=== PATIENT | female | born 1985 | race Caucasian/White ===

== ENCOUNTER → 2021-10-27 | Outpatient (CLI) | payer SELFPAY ==
--- NOTE | 2021-10-27 13:46 | US_ITS ---
STUDY: ULTRASOUND OF THE FEMALE PELVIS - COMPLETE REASON FOR EXAM: Female, 36 years old. irregular menses LMP: 10/05/2021. TECHNIQUE: Transabdominal and transvaginal scan. TECHNICAL QUALITY: Adequate. COMPARISON: None. FINDINGS: UTERUS: 9.5 cm length. Probable arcuate configuration. ENDOMETRIUM: Not thickened. 0.6 cm. OVARIES: Right ovary: 4.2 x 2.9 x 2.6 cm. Multiple follicles, largest is 1.6 x 1.6 x 1 cm appears septated. Vascular flow demonstrated. No findings to suggest ovarian torsion. Left ovary: 4.3 x 2.9 x 2.2 cm. Multiple follicles, largest 1.7 x 2 x 1 cm, likely septated. Vascular flow demonstrated. No findings to suggest ovarian torsion. FREE FLUID: None. BLADDER: Moderately distended. Bladder volume 320 mL. There is a 1.4 x 1 x 1.3 cm cystic structure at the base of the bladder on the left probable ureterocele related to the left ureter. 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 A few septated ovarian follicles. Incidental cystic structure in the bladder probably ureterocele on the left. Electronically Signed: Camryn Castro MD at 5:07 EDT ,
--- NOTE | 2021-10-27 13:46 | US_ITS ---
STUDY: ULTRASOUND OF THE FEMALE PELVIS - COMPLETE REASON FOR EXAM: Female, 36 years old. irregular menses LMP: 10/05/2021. TECHNIQUE: Transabdominal and transvaginal scan. TECHNICAL QUALITY: Adequate. COMPARISON: None. FINDINGS: UTERUS: 9.5 cm length. Probable arcuate configuration. ENDOMETRIUM: Not thickened. 0.6 cm. OVARIES: Right ovary: 4.2 x 2.9 x 2.6 cm. Multiple follicles, largest is 1.6 x 1.6 x 1 cm appears septated. Vascular flow demonstrated. No findings to suggest ovarian torsion. Left ovary: 4.3 x 2.9 x 2.2 cm. Multiple follicles, largest 1.7 x 2 x 1 cm, likely septated. Vascular flow demonstrated. No findings to suggest ovarian torsion. FREE FLUID: None. BLADDER: Moderately distended. Bladder volume 320 mL. There is a 1.4 x 1 x 1.3 cm cystic structure at the base of the bladder on the left probable ureterocele related to the left ureter. 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 A few septated ovarian follicles. Incidental cystic structure in the bladder probably ureterocele on the left. Electronically Signed: Camryn Castro MD at 5:07 EDT ,
== END | disposition home or self-care (01) ==
PROVIDERS: Referring Provider Obstetrics & Gynecology; Visit Provider Obstetrics & Gynecology
DX: N92.6 Irregular menstruation, unspecified (principal)
CPT/HCPCS: 76830; 76856

== ENCOUNTER → 2021-11-19 | Outpatient (CLI) | payer SELFPAY ==
--- NOTE | 2021-11-19 17:42 | CT_ITS ---
STUDY: CT ABDOMEN AND PELVIS WITH AND WITHOUT CONTRAST REASON FOR EXAM: Female, 36 years old. ABNORMAL FINDINGS ON IMAGING RADIATION DOSAGE (If Supplied By Facility): CTDIvol = ( 9.00 ) mGy, DLP = ( 878.89 ) mGycm TECHNIQUE: Transaxial images were obtained from the dome of the diaphragm to the symphysis pubis without oral contrast. ML ISOVUE 300 was administered. Sagittal and coronal images were reconstructed. Individualized dose optimization techniques were used for this CT. COMPARISON: None. FINDINGS: 2 mm calcified granuloma in the posterior medial segment of the right lower The visualized portions of the heart are within normal limits. Normal liver. Normal gallbladder and extrahepatic biliary system. There is a benign calcified granuloma of the spleen. Normal pancreas. Normal bilateral adrenal glands. Normal right kidney. Normal left kidney. Normal visualized stomach. Normal small intestine. Normal colon. The appendix is visualized and appears normal. Normal abdominal aorta. Normal inferior vena cava. Normal retroperitoneum. Normal urinary bladder. There is a 1.3 cm x 2.4 cm cyst in the left ovary. Normal abdominal wall. Normal osseous structures. CT/CT Abd/Pelvis W/WO Contrast IMPRESSION: Small left ovarian cyst. Electronically Signed: Aleks Garcia MD at 8:35 EDT ,
== END | disposition home or self-care (01) ==
PROVIDERS: Visit Provider Urology
DX: R93.49 Abnormal radiologic findings on diagnostic imaging of other urinary organs (principal)
CPT/HCPCS: 74178; Q9967

== ENCOUNTER → 2021-11-25 | Outpatient (CLI) | payer SELFPAY ==
[2021-11-25 13:29] LABS: Estradiol 46.7 pg/mL; Thyroid Stim Hormone (TSH) 3.74 uIU/mL (0.358-3.74)
[2021-11-28 13:14] LABS: Testosterone Free 1.2 pg/mL (0.0-4.2)
== END | disposition home or self-care (01) ==
PROVIDERS: Referring Provider Obstetrics & Gynecology; Visit Provider Obstetrics & Gynecology
DX: Z13.29 Encounter for screening for other suspected endocrine disorder (principal); N97.0 Female infertility associated with anovulation
CPT/HCPCS: 36415; 82670; 83001; 84402; 84443

== ENCOUNTER → 2022-09-14 | Outpatient (CLI) | payer SELFPAY ==
[2022-09-14 12:50] LABS: Absolute Lymphocyte Count 1.76 X10^3/uL (0.83-4.51); Absolute Neutrophil Count 6.9 X10^3/uL (2.0-7.7); Basophil# 0.02 X10^3/uL; Basophil% 0.2 % (0-1); Eosinophil# 0.05 X10^3/uL; Eosinophils% 0.5 % (0-5); Hematocrit 41.3 % (37-47); Hemoglobin 13.7 g/dL (12.0-15.0); Lymphocyte # 1.76 X10^3/ul (0.83-4.51); Lymphocyte % 18.7 % (19-41); Mean Corp Hgb Conc 33.2 g/dL (32-36); Mean Corpuscular Hgb 29.5 pg (27.0-32.0); Mean Corpuscular Volume 88.8 fL (81-99); Mean Platelet Vol. 10.9 fl (6.2-12.0); Monocyte# 0.62 X10^3/uL; Monocyte% 6.6 % (0-10); NRBC Flagged by Analyzer 0 % (0-5); Neutrophil % 73.6 % (47-70); Platelet Count 284 K/mm3 (150-450); RBC Distribution Width CV 13.6 % (11.6-14.6); RBC Distribution Width SD 44.2 fl (35.1-43.9); Red Blood Count 4.65 M/mm3 (4.2-5.4); White Blood Count 9.4 K/mm3 (4.4-11.0)
[2022-09-14 13:42] LABS: hCG Titer Quant., Serum 15195 mIU/mL (1-3)
[2022-09-14 13:47] LABS: HIV - WCH Non-Reactive (Nonreactive); Hepatitis B Surface Antigen Non-Reactive (Nonreactive); Hepatitis C Antibody Non-Reactive (Nonreactive); Rubella IgG Reactive (Nonreactive); Syphilis Antibodies Non-reactive
[2022-09-17 00:07] LABS: Chlamydia By Nucleic Acid AMP Negative (Negative)
[2022-09-17 08:28] LABS: Gonococcus By Nucleic Acid AMP Negative (Negative)
== END | disposition home or self-care (01) ==
PROVIDERS: Referring Provider Advanced Practice Midwife; Visit Provider Advanced Practice Midwife
DX: O09.90 Supervision of high risk pregnancy, unspecified, unspecified trimester (principal)
CPT/HCPCS: 36415; 84702; 85025; 86703; 86762; 86780; 86803; 86850; 86900; 86901; 87086; 87340; 87491; 87591

== ENCOUNTER → 2022-09-16 | Outpatient (CLI) | payer SELFPAY ==
[2022-09-16 12:34] LABS: hCG Titer Quant., Serum 21592 mIU/mL (1-3)
== END | disposition home or self-care (01) ==
PROVIDERS: Visit Provider Advanced Practice Midwife
DX: O26.859 Spotting complicating pregnancy, unspecified trimester (principal)
CPT/HCPCS: 36415; 84702

== ENCOUNTER → 2022-09-27 | Outpatient (CLI) | payer SELFPAY | END | disposition home or self-care (01) | LOC: LABSPEC 12:00 | PROVIDERS: Referring Provider Obstetrics & Gynecology; Visit Provider Obstetrics & Gynecology | DX: O26.899 Other specified pregnancy related conditions, unspecified trimester (principal); R10.2 Pelvic and perineal pain; Z3A.00 Weeks of gestation of pregnancy not specified | CPT/HCPCS: 87086; 87088 ==

== ENCOUNTER → 2022-12-22 | Outpatient (CLI) | payer SELFPAY ==
--- NOTE | 2022-12-22 12:25 | US_ITS ---
STUDY: SECOND AND THIRD TRIMESTER OBSTETRICAL ULTRASOUND REASON FOR EXAM: Female, 37 years old anatomy LMP: August 06, 2022. TECHNIQUE: Transabdominal and Transvaginal TECHNICAL QUALITY: Adequate. PRIOR ULTRASOUND: None. FINDINGS: There is a single intrauterine fetus. The fetus is in a breech presentation. There is demonstrated cardiac activity with a heart rate of 144 bpm. There is a normal amniotic fluid volume. The largest amniotic fluid pocket measures 2.8 cm x 3.2 cm. The amniotic fluid index (CHRISTI) is within normal limits . The placenta is posterior in location and is not low lying. There are Grade 0 placental changes. The cervix measures 4.5 in length. The bilateral adnexal regions are normal. BIOMETRY: BPD: 4.58 cm: 19 weeks, 6 days HC: 17.64 cm: 20 weeks, 1 days AC: 14.9 cm: 20 weeks, 1 days FL: 3.12 cm: 19 weeks, 5 days CI: 74% FL/BPD: 68% FL/HC: FL/AC: 21% HC/AC: 1.18 age by current US: 20 weeks, 0 days. POLY by current US: May 11, 2023. Estimated weight: 323 grams, +/- 48 grams, 58 %. Age by LMP: 19 weeks, 5 days. POLY by LMP: May 13, 2023. ANATOMY: Gender: Male Cranium: Normal lateral ventricles. Normal choroid plexus. Normal cerebellum. Normal cisterna magna. Normal face, nose and lips. Chest: Normal 4-chamber heart. Abdomen/Pelvis: Normal diaphragm. Normal stomach. Normal abdominal wall. Normal cord insertion. Normal 3 vessel cord. Normal kidneys. Normal bladder. Spine: Normal cervical spine. Normal thoracic spine. Normal lumbar spine. Normal sacrum. Extremities: Normal bilateral upper extremities. Normal bilateral lower extremities. IMPRESSION: Single live intrauterine gestation with a mean gestational age of 20 weeks. Electronically Signed: Aleks Garcia MD at 15:01 EDT , STUDY: FIRST TRIMESTER OBSTETRICAL ULTRASOUND REASON FOR EXAM: Female, 37 years old . Cervical length. LMP: August 06, 2022. TECHNIQUE: Transvaginal TECHNICAL QUALITY: Adequate. PRIOR ULTRASOUND: None. FINDINGS: Cervical length measures 4.5 cm. US/OB Anatomy Scan IMPRESSION: Cervical length measures 4.5 cm. Electronically Signed: Aleks Garcia MD at 15:02 EDT ,
== END | disposition home or self-care (01) ==
LOC: OPUS 12:24
PROVIDERS: Referring Provider Obstetrics & Gynecology; Visit Provider Obstetrics & Gynecology
DX: O09.90 Supervision of high risk pregnancy, unspecified, unspecified trimester (principal); Z3A.00 Weeks of gestation of pregnancy not specified
CPT/HCPCS: 76805; 76817

== ENCOUNTER → 2023-02-10 | Outpatient (CLI) | payer SELFPAY ==
[2023-02-10 12:31] LABS: Absolute Neutrophil Count 6.5 X10^3/uL (2.0-7.7); Basophil# 0.02 X10^3/uL; Basophil% 0.2 % (0-1); Eosinophil# 0.06 X10^3/uL; Eosinophils% 0.7 % (0-5); Hematocrit 35.8 % (37-47); Hemoglobin 11.6 g/dL (12.0-15.0); Lymphocyte % 17.9 % (19-41); Mean Corp Hgb Conc 32.4 g/dL (32-36); Mean Corpuscular Hgb 30.3 pg (27.0-32.0); Mean Corpuscular Volume 93.5 fL (81-99); Mean Platelet Vol. 10.6 fl (6.2-12.0); Monocyte# 0.67 X10^3/uL; Monocyte% 7.5 % (0-10); NRBC Flagged by Analyzer 0 % (0-5); Neutrophil # 6.53 X10^3/uL (2.7-7.7); Neutrophil % 73.1 % (47-70); Platelet Count 266 K/mm3 (150-450); RBC Distribution Width CV 14.3 % (11.6-14.6); Red Blood Count 3.83 M/mm3 (4.2-5.4); White Blood Count 8.9 K/mm3 (4.4-11.0)
[2023-02-10 12:58] LABS: Glucose Challenge Gest 1H 50g 103 mg/dL (70-140)
[2023-02-10 13:24] LABS: HIV - WCH Non-Reactive (Nonreactive); Syphilis Antibodies Non-reactive
== END | disposition home or self-care (01) ==
LOC: LAB 10:54
PROVIDERS: Referring Provider Obstetrics & Gynecology; Visit Provider Obstetrics & Gynecology
DX: O09.90 Supervision of high risk pregnancy, unspecified, unspecified trimester (principal); Z13.1 Encounter for screening for diabetes mellitus; Z3A.00 Weeks of gestation of pregnancy not specified
CPT/HCPCS: 82950; 85025; 86703; 86780

== ENCOUNTER → 2023-03-30 | Outpatient (CLI) | payer SELFPAY ==
--- NOTE | 2023-03-30 10:49 | US_ITS ---
STUDY: SECOND AND THIRD TRIMESTER OBSTETRICAL ULTRASOUND - LIMITED REASON FOR EXAM: Female, 37 years old advanced maternal age LMP: 08/06/2022. PRIOR ULTRASOUND: 12/22/2022. TECHNIQUE: Transabdominal TECHNICAL QUALITY: Adequate. FINDINGS: There is a single intrauterine fetus. The fetus is in a cephalic presentation. There is demonstrated cardiac activity with a heart rate of 148 bpm. There is a normal amniotic fluid volume. The largest amniotic fluid pocket measures 13.7 cm. The amniotic fluid index (CHRISTI) is 5.6 cm. The placenta is posterior and left lateral without evidence of placenta previa. There are Grade 1 placental changes. The cervix measures 4 cm in length. BIOMETRY: BPD: 8.6 cm: 34 weeks, 4 days HC: 30.2 cm: 33 weeks, 4 days AC: 29.1 cm: 33 weeks, 1 days FL: 6.4 cm: 33 weeks, 0 days age by prior US: 20 weeks, 0 days. POLY by prior US: 05/11/2023. age by current US: 33 weeks, 2 days. POLY by current US: 05/16/2023. Estimated weight: 2187 grams, +/- 328 grams, 34 percentile. Gender: anatomy is not entirely excluded on this examination. Questionable nuchal cord. Umbilical cord is seen near the neck however, complete wrap could not be definitely identified. US/OB Limited With Biometrics IMPRESSION: Single live intrauterine fetus in cephalic presentation with an estimated gestational age of 33 weeks and 2 days as described above. Electronically Signed: Juan Burton MD at 14:13 EDT ,
== END | disposition home or self-care (01) ==
LOC: US 10:48
PROVIDERS: Referring Provider Obstetrics & Gynecology; Visit Provider Obstetrics & Gynecology
DX: O34.219 Maternal care for unspecified type scar from previous cesarean delivery (principal); O09.529 Supervision of elderly multigravida, unspecified trimester; Z3A.00 Weeks of gestation of pregnancy not specified
CPT/HCPCS: 76816

== ENCOUNTER → 2023-04-20 | Outpatient (CLI) | payer SELFPAY | END | disposition home or self-care (01) | PROVIDERS: Visit Provider Obstetrics & Gynecology | DX: O09.90 Supervision of high risk pregnancy, unspecified, unspecified trimester (principal); Z3A.00 Weeks of gestation of pregnancy not specified | CPT/HCPCS: 87077; 87081; 87186 ==

== ENCOUNTER 2023-05-11 07:08 | Inpatient (IN) | payer SELFPAY ==
[2023-05-11] VITALS (49 sets, daily range): BP systolic 96–120; BP diastolic 50–80; PULSE 68–99; RESP 11–20; TEMP 36.1–37.1; O2SAT 90–100; BMI 25.3
[2023-05-11] MEDS: Lactated Ringers 1,000 ML 50 ML IV (07:45)
[2023-05-11 07:57] LABS: Absolute Neutrophil Count 6.7 X10^3/uL (2.0-7.7); Basophil# 0.02 X10^3/uL; Basophil% 0.2 % (0-1); Eosinophil# 0.05 X10^3/uL; Eosinophils% 0.5 % (0-5); Hematocrit 36.7 % (37-47); Hemoglobin 12.4 g/dL (12.0-15.0); Lymphocyte % 19.4 % (19-41); Mean Corp Hgb Conc 33.8 g/dL (32-36); Mean Corpuscular Hgb 30.3 pg (27.0-32.0); Mean Corpuscular Volume 89.7 fL (81-99); Mean Platelet Vol. 10.4 fl (6.2-12.0); Monocyte# 0.62 X10^3/uL; Monocyte% 6.7 % (0-10); NRBC Flagged by Analyzer 0 % (0-5); Neutrophil % 72.3 % (47-70); Platelet Count 210 K/mm3 (150-450); RBC Distribution Width SD 45.3 fl (35.1-43.9); Red Blood Count 4.09 M/mm3 (4.2-5.4); White Blood Count 9.3 K/mm3 (4.4-11.0)
[2023-05-11] MEDS: Penicillin G Pot 5,000,000 UNITS in 0.9% Normal Saline (100mL MB+) 100 ML 150 UNITS IV (08:00)
[2023-05-11] MEDS: Oxytocin 15 Units/NS 250ml 15 UNITS/250 ML IV.SOLN 2 UNITS IV (08:33)
--- NOTE | 2023-05-11 08:47 | HP.PCM.OB_ITS ---
HPI - General General Date of Admission: 05/11/23 HPI Narrative FROYLAN CARLOS, is a 37 y/o @ 39 weeks 5 days who presents to L&D for IOL. She has a history of prior section for breech presentation. Her current cotto score is a 10. She was 3/80/-1 in office yesterday and membranes were stripped. 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 Judy Hennessy DO) delivery delivered Social History adopted: No household members: spouse and children housing: house number of children: 1 current occupational status: unemployed current occupation: [employer] pets and animals: No history of recent travel: No sexually active: Yes Smoking Status: Former smoker Electronic Cigarette Use: not used second hand exposure: No alcohol intake: never substance use type: does not use well-balanced diet: about half the time caffeine: Yes Type: coffee Number of servings: 2 eating out: 1-3 times/week seatbelt use: always do you feel safe at home: Yes additional social history: 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 Date Name GA/Weeks Outcome Route Bth Weight Gen Labor Lgth Anesthesia Del Locatn Provider FOB 09/21/18 James 40 live - full term 5lbs Male Abimael Delivery Date: 09/21/18 Last Updated by: Keara Salmon MD breech Visit Details Expected Delivery Route/Plan Labor Preferences- CB/BF classes: discussed labor support person: Sher labor intervention preferences: [] pain management options preferred: [] cut cord/dad catch: [] : Yes PP control planned: [] discussed possible routes of delivery and associated risks: [] special requests: [] Plans Covid status: [] Flu vaccine: [] Tdap vaccine: declines Rhogam:NA LARC form signed: [] Problem list reviewed and updated with the most current plan of care details and appropriate orders placed. Relevant counseling for the gestational age provided. Continue routine care and follow up unless otherwise noted in visit notes/problem list details OB Flowsheet Initial Weight: Not Recorded Date -?-?-?-?-?-?-?-?-?-?-?-?- EGA Weight BP Urine Prot -?-?-?-?-?-?-?-?-?-?-?-?- Glucose FHR FuHt Pres Dilation -?-?-?-?-?-?-?-?-?-?-?-?- Effaced St Visit Note 09/14/22 -?-?-?-?-?-?-?-?-?-?-?-?- 5w 4d 117 lb 8 oz 128/78 -?-?-?-?-?-?-?-?--?-?-?-?- -?-?-?-?-?-?-?-?-?-?-?-?- KW-CRL equal to dates. Desires for . NIPT box given. KW-CRL not equal to dates. m easuring ~4 weeks. Quants ordered for today and in 48 hours KW-CRL not equal to dates. m easuring ~4 weeks. Quants ordered for today and in 48 hours per JV 09/27/22 -?-?-?-?-?-?-?-?-?-?-?-?- 7w 3d 120 lb 2 oz 138/81 Nega tive -?-?-?-?-?-?-?-?-?-?-?-?- Negative 170 -?-?-?-?-?-?-?-?-?-?-?-?- SM- had some llq pain bedside ultrasound today show 1.2cm CRL 10/19/22 -?-?-?-?-?-?-?-?-?-?-?-?- 10w 4d 117 lb 8 oz 117/79 Nega tive -?-?-?-?-?-?-?-?-?-?-?-?- Negative 175 -?-?-?-?-?-?-?-?-?-?-?-?- JV- bedside hand held ultrasound performed today. pt has no complaints of cramping or bleeding. will sign hippa release form for prior section and to have NIPT drawn with labs. 11/18/22 -?-?-?-?-?-?-?-?-?-?-?-?- 14w 6d 119 lb 2 oz 120/77 Nega tive -?-?-?-?-?-?-?-?-?-?-?-?- Negative 145 -?-?-?-?-?-?-?-?-?-?-?-?- JV- no lof, vagi nal bleeding, or cramping. on Tuesday she had some brown discharge that has stopped. bedside scan does not show any signs of NICOLASA or fluid in the cervix. anatomy scan ordered. 12/13/22 -?-?-?-?-?-?-?-?-?-?-?-?- 18w 3d 121 lb 4 oz 112/82 Nega tive -?-?-?-?-?-?-?-?-?-?-?-?- Negative 145 19 -?-?-?-?-?-?-?-?-?-?-?-?- SM- no vb lof go od fm no regular ctx 01/13/23 -?-?-?-?-?-?-?-?-?-?-?-?- 22w 6d 124 lb 126/76 Negative -?-?-?-?-?-?-?-?-?-?-?-?- Negative 140 -?-?-?-?-?-?-?-?-?-?-?-?- JV- + move ment now, no cramping or bleeding 02/10/23 -?-?-?-?-?-?-?-?-?-?-?-?- 26w 6d 126 lb 116/72 -?--?-?-?-?-?-?-?-?-?-?-?- 140 27 -?-?-?-?-?-?-?-?-?-?-?-?- JV- no complaint s today. doing gct later today. (lives in [place]) will discuss tdap next visit. 02/25/23 -?-?-?-?-?-?-?-?-?-?-?-?- 29w 0d 127 lb 8 oz 106/71 -?-?-?-?-?-?-?-?-?-?-?-?- 140 28 -?-?-?-?-?-?-?-?-?-?-?-?- SM- no vb lof go od fm no regular ctx larc signed 03/09/23 -?-?-?-?-?-?-?-?-?-?-?-?- 30w 5d 129 lb 4 oz 117/77 Nega tive -?-?-?-?-?-?-?-?-?-?-?-?- Negative 145 30 -?-?-?-?-?-?-?-?-?-?-?-?- LC- no vb/ctx/lo f. good fm. declines tdap. 03/23/23 -?-?-?-?-?-?-?-?-?-?-?-?- 32w 5d 130 lb 6 oz 118/79 Nega tive -?-?-?-?-?-?-?-?-?-?-?-?- Negative 152 32 -?-?-?-?-?-?-?-?-?-?-?-?- JV- no lof, vagi nal bleeding, or dec fm. will try pepcid for nausea in the evening. if no improvement will try adding reglan. 04/07/23 -?-?-?-?-?-?-?-?-?-?-?-?- 34w 6d 131 lb 6 oz 110/74 Nega tive -?-?-?-?-?-?-?-?-?-?-?-?- Negative 130 36 -?-?-?-?-?-?-?-?-?-?-?-?- KW-no lof/vb/ctx . good fm. Pepcid is somewhat working for her, if it worsens again would like Reglan. 04/13/23 -?-?-?-?-?-?-?-?-?-?-?-?- 35w 5d 131 lb 114/72 Negative -?-?-?-?-?-?-?-?-?-?-?-?- Negative 130 35 -?-?-?-?-?-?-?-?-?-?-?-?- LC- no lof/vb/ct x. good fm. gbs next week. 04/20/23 -?-?-?-?-?-?-?-?-?-?-?-?- 36w 5d 133 lb 2 oz 120/82 Nega tive -?-?-?-?-?-?-?-?-?-?-?-?- Negative 146 36 Cephalic 1 -?-?-?-?-?-?-?-?-?-?-?-?- 60 -2 JV- gbs co llected. pt has decided that she wants to have a rpt section by 40 weeks if no delivery spontaneously by then. appears OP today based on scaphoid shape of abdomen today. This is what her prior section was for (stuck OP and decels) 04/27/23 -?-?-?-?-?-?-?-?-?-?-?-?- 37w 5d 134 lb 2 oz 115/77 Nega tive -?-?-?-?-?-?-?-?-?-?-?-?- Negative 140 37 Cephalic 3 -?-?-?-?-?-?-?-?-?-?-?-?- 80 -2 JV- no lof , vaginal bleeding, or dec fm. planning . unless does not go into labor by 40 weeks. 05/04/23 -?-?-?-?-?-?-?-?-?-?-?-?- 38w 5d 132 lb 6 oz 118/79 Nega tive -?-?-?-?-?-?-?-?-?-?-?-?- Negative 134 38 Cephalic 3 -?-?-?-?-?-?-?-?-?-?-?--?- 80 -2 JV- attemp tricia to strip membranes but baby's hand was in the way. will reassess next tuesday. pt may be a candidate for IOL if does not want . 05/10/23 -?-?-?-?-?-?-?-?-?-?-?-?- 39w 4d 133 lb 6 oz 112/78 Nega tive -?-?-?-?-?-?-?-?-?-?-?-?- Negative 144 38 Cephalic 3 -?-?-?-?-?-?-?-?-?-?-?-?- 80 -1 JV- planni ng for IOL tomorrow. No lof, vaginal bleeding, or dec fm. not feeling contractions. cotto score now 10 ROS Constitutional Constitutional: Denies change in weight, fatigue, fever(s), headache(s), poor appetite or weakness Eyes Eyes: Denies blurry vision, change in vision, seeing flashes or spots in vision ENT HEENT: Denies dizziness, headache(s), loss taste/smell or sore throat Cardiovascular Cardiovascular: Denies chest pain, dizziness, dyspnea, irregular heart rhythm, leg edema, palpitations, rapid heart rate or vomiting Respiratory/Chest Respiratory/Chest: Denies chest tightness, cough, dyspnea or breast pain Gastrointestinal Gastrointestinal: Denies abdominal pain, anorexia, constipation, cramping, diarrhea, hemorrhoids, vomiting or weight changes Genitourinary Genitourinary: Denies dysuria, flank pain, genital lesions, genital pain, urinary frequency or urinary urgency Musculoskeletal Musculoskeletal: Denies back pain, difficulty walking, joint pain, limited range of motion, muscle cramps or numbness Integumentary Integumentary: Denies lesions or unusual bruising Neurologic Neurologic: Denies abnormal movements, abnormal speech, dizziness, numbness, seizure-like activity or syncope Psychiatric Psychiatric: Denies anxiety, behavioral changes, change in appetite, change in libido, cognitive impairment, confusion, depression, difficulty concentrating, hallucinations or suicidal thoughts Endocrine Endocrinology: Denies excessive sweating, polydipsia or polyuria Hematologic/Lymphatic Hematologic/Lymphatic: Denies easy bleeding, easy bruising or lymphadenopathy Allergic/Immunologic Allergic/Immunologic: Denies itchy eyes, lip swelling, seasonal rhinorrhea, rhinitis, throat swelling, tongue swelling, eczemia, wheezing or asthma Vital Signs Vital Signs Vital Signs: 05/11/23 07:52 05/11/23 07:52 05/11/23 07:53 Temperature Temperature Source Pulse Rate 90 84 Blood Pressure 116/67 BP Systolic 116 BP Diastolic 67 Pulse Ox 05/11/23 07:53 05/11/23 07:51 05/11/23 07:51 Temperature 97.0 F L Temperature Source Temporal Pulse Rate Blood Pressure BP Systolic BP Diastolic Pulse Ox 99 Weight Weight: 134 lb Body Mass Index (BMI) 25.3 Physical Exam Const alert, oriented x3, no apparent distress and healthy appearing General Appearance: cooperative; Negative for anxious HEENT normocephalic Face and Sinus: normal facial exam Eyes EOMs intact bilaterally and no scleral icterus General Eye: normal appearance of both eyes Neck full ROM and supple Lymph Lymphatic: no lymphadenopathy noted Chest Chest: abnormal inspection of the chest Resp normal respiratory effort Effort and Inspection: able to speak in complete sentences Cardio regular rate GI soft to palpation and non-tender Inspection: gravid Palpation: soft; Negative for tender Back/Spine no CVA tenderness Extremity normal to inspection, full ROM and no clubbing, cyanosis or edema General Extremity: Negative for calf tenderness or edema Skin Lesions: no lesions Rashes: no rashes Psych mental status grossly normal Labs Labs Labs: Blood Type O POSITIVE Antibody Screen NEGATIVE Hct 36.7 % (37-47) L Hgb 12.4 g/dL (12.0-15.0) Pap Smear Negative Obstetrics Ultrasound Syphilis Total Ab Non-reactive Rubella IgG Antibody Reactive (Nonreactive) Hep Bs Antigen Non-Reactive (Nonreactive) Hepatitis C Antibody Non-Reactive (Nonreactive) Chlamydia DNA (RENZO) Negative (Negative) N.gonorrhoeae DNA (RENZO) Negative (Negative) HIV 1&2 Antibody Non-Reactive (Nonreactive) Glucose 1 Hr 50 gm 103 mg/dL (70-140) Assessment & Plan (1) Positive GBS test: COMMENT: treat in labor (2) Desires (vaginal after ) trial: COMMENT: 70.1% per calculator . prior section was for breech 03/30 35% growth (3) AMA (advanced maternal age) multigravida 35+: COMMENT: declines genetic screening. plan 36 week growth US (4) Supervision of high risk , antepartum: COMMENT: PRR POLY: 05/13/23, kevin Ramirez, Spouse-Sher, Repeat C/S scheduled 05/16/23 Noon. (5) : QUALIFIERS: Weeks of gestation: 39 weeks Qualified Code(s): Z3A.3 9 - 39 weeks gestation of COMMENT: genetic, carrier, and ntd screening declined. nl anatomy, nl growth @33w PLAN: Plan Patient presents IOL, plan management for with pitocin/AROM. Pain management: plans epidural. GBS positive- start pcn now . Management of any complications: prior section. The patietn was counseled on the risks, benefits, and alternatives to IOL and vaginal delivery after section. (see consent form in chart) risks include uterine rupture of 1% that could potentially lead to I have reviewed the [facility] and made any clinically relevant updates.
[2023-05-11 09:50] LABS: Syphilis Antibodies Non-reactive
[2023-05-11] MEDS: LACTATED RINGERS 500 ML 999 ML IV (10:45)
[2023-05-11] MEDS: fentaNYL-bupivacaine (epidural) 100 ML BAG EPIDURAL ×2 (11:10→15:29)
[2023-05-11] MEDS: Ondansetron 4 MG/2 ML Vial IV ×3 (13:09→21:38)
[2023-05-11] MEDS: Penicillin G 3,000,000 Units 50 ML 100 UNITS IV ×2 (13:19→17:34)
[2023-05-11] MEDS: Lactated Ringers 1,000 ML 200 ML IV (15:29)
--- NOTE | 2023-05-11 17:46 | PCM.PN.BLA ---
Progress Note pt is comfortable with epidural. until 23 minutes ago there has been a category 1 strip. contractions are q2 minutes and showed persistent lates after 5 contractions in a row Cx is 9 cm and +1 station with bearing down. The head is OP and attempt was made to turn the head. while performing this, bloody fluid returned. an FSE was placed and the patient was turned to the side and the late decelerations resolved. Currently minimal variability with early decelerations. plan to continue close observation at bedside and anticipate soon
[2023-05-11] MEDS: Acetaminophen 500 MG Tablet PO (18:40)
[2023-05-11] MEDS: Sodium Citrate/Citric Acid 30 ML UDC PO (18:40)
[2023-05-11] MEDS: Cefazolin 2 GM in 0.9% Normal Saline (100mL Bag) 100 ML IV (19:09)
--- NOTE | 2023-05-11 20:01 | OP.PCM_ITS ---
Assessment & Plan (1) Positive GBS test: COMMENT: treat in labor (2) Desires (vaginal after ) trial: COMMENT: 70.1% per calculator . prior section was for breech 03/30 35% growth (3) AMA (advanced maternal age) multigravida 35+: COMMENT: declines genetic screening. plan 36 week growth US (4) Supervision of high risk , antepartum: COMMENT: PRR POLY: 05/13/23, boy Samir PC James, Spouse-Sher, Repeat C/S scheduled 05/16/23 Noon. (5) : QUALIFIERS: Weeks of gestation: 39 weeks Qualified Code(s): Z3A.39 - 39 weeks gestation of COMMENT: genetic, carrier, and ntd screening declined. nl anatomy, nl growth @33w Maternal Data Information POLY Calculator Estimated Delivery Date Method Current WG Current Estimate 05/13/23 Ultrasound #2 39w 5d Other Estimates 04/17/23 LMP (Certain) 43w 3d 05/24/23 Ultrasound #1 38w 1d Final POLY: 05/13/23 Final POLY Source: US <20 weeks Gestational age: 39 weeks 5 days Details Operative Information Date of Procedure: 05/11/23 Pre-Operative Diagnosis: 37 y/o , prior section, failed TOLAC for heart rate decelerations and persistent OP position, failed vacuum attempt Post-Operative Diagnosis: 37 y/o , prior section, failed TOLAC for heart rate decelerations and persistent OP position, failed vacuum attemp Classification: RICARDO Procedure Type: low transverse motor vehicles supervisor #1: Doris Mcclenodn Type of Anesthesia: Epidural Anesthesiologist: Maksim Mendoza Antibiotic Given: Ancef 2 grams IV x1 and Zithromax 500 mg/5 mL X1 Drain: St to straight drain Estimated Blood Loss: 500cc Findings Description of Procedure: The patient was admitted to labor and delivery for induction of labor at 39 weeks 5 days she has a history of a prior section for breech presentation and was found to have a Sandy score of 10. Pitocin was started and spontaneous rupture of membranes occurred at approximately 12:00 in the afternoon and 5 hours from the start of Pitocin. She progressed to 9-1/2 cm dilated. While at the bedside, a late deceleration occurred followed by 3 more late decelerations. The anterior lip was pushed back and she pushed with good effort. The station descended to a +2 station from a 0 station. Intermittent late decelerations were noted and at this time the anterior lip was noted to be gone and she was completely dilated. The infant was noted to be in the OP position and attempt to rotate the infant's head was unsuccessful. The decision was made to perform a vacuum extraction. After the risk benefits and alternatives were discussed with the patient a Kiwi vacuum was placed on the 's head. To the posterior fontanelles. The first pull resulted in a slow leak of the pressure. 2 more pulls were performed without successfully bringing the 's head to lower than a +2 station. Tween contractions the heart rate was noted to decelerate down to the 80s and 90s and the decision was made to move to the operating room to continue either pushing or proceed with a section. While back in the operating room the patient pushed several more times then requested a section due to lack of descent Procedure: Epidural anesthesia was found to be adequate. She was prepped and draped in the normal sterile fashion and was placed in a dorsal supine position with a leftward tilt. A St catheter was placed in the urethra and no urine return was noted. A Pfannenstiel skin incision was made with a scalpel and carried through to the underlying layers. The fascia was nicked in the midline and extended laterally using Lopez scissors. The anterior aspect of the fascia was grasped with David clamps and the underlying rectus muscles dissected off using the Metzenbaum scissors. The inferior aspect the fascia was also grasped with David clamps and the underlying rectus muscle dissected off with the Metzenbaum scissors. The rectus muscles were in the midline. Peritoneum was entered sharply. The uterus was identified and a bladder blade was inserted into the abdomen. Bladder flap was created off the uterus using Metzenbaum scissors. A transverse incision was made with a scalpel and extended laterally manually. The 's head was grasped with the help of my events administrative assistant and fundal pressure the was delivered through the uterine incision without difficulty. The mouth and nares were bulb suctioned. After a 30 second delay the cord was clamped and cut. The was handed off to the awaiting plastic surgery assistant for routine assessment. Placenta was delivered manually without difficulty. The uterus was exteriorized and cleared of all clots and debris. Incision was closed with an 0 Vicryl suture in a running locked fashion. Second layer of 1-0 monocryl suture was used in imbricating manner to create excellent closure and hemostasis. The uterus was returned to the abdomen. It was at this time that there was noted to be kalpesh blood in the catheter. The uterus was again exteriorized and the bladder flap was dissected further to look for any small tears that could have been missed. The bladder was then backfilled with approximately 160 cc of methylene blue diluted solution. There were no leaks appreciated and the bladder was noted to distend appropriately. The the bladder flap was repaired using a 3-0 Vicryl in a running fashion. The uterus was again returned to the abdomen the gutters were cleared of all clots and debris. The peritoneum was closed in a pursestring pattern using a 3-0 Vicryl suture. This muscle was reapproximated with a 3-0 Vicryl. The fascia was closed with an PDS strata fix suture. Subcutaneous tissue layer was closed using a plain gut suture. The skin was closed with a 4-0 Monocryl subcuticular stitch. The skin was also sealed with surgical glue. The patient tolerated the procedure well sponge lap and needle counts were correct at each tissue closure plane and the p atient is now being brought to the recovery room in stable condition Presentation: Positive for Vertex Amniotic Membrane Rupture Type: Spontaneous Time of Membrane Ruptured: 1200 Amniotic Fluid Description: Clear Placental Delivery Description: Manual Removal Placenta Disposition: [facility] Cord Vessel Description: 3 Vessels Cord Entanglement: None Infant A Gender: Male (1 minute): 8 (5 minute): 9 Delayed Cord Clamping: Yes Complications Risks of Surgery Discussed w/Patient: Bleeding, Anesthesia Risks, Infection, Need for Future C-Sections and Injury to surrounding structure(s) including bowel and bladder Complications: none Multi Select Codes Urinary/Genital Urinary/Genital CPT Codes: 56303 Delivery [facility]
[2023-05-11 20:15] LABS: Absolute Lymphocyte Count 0.81 X10^3/uL (0.83-4.51); Absolute Neutrophil Count 10.6 X10^3/uL (2.0-7.7); Basophil# 0.02 X10^3/uL; Basophil% 0.2 % (0-1); Eosinophil# 0.01 X10^3/uL; Eosinophils% 0.1 % (0-5); Hematocrit 27.8 % (37-47); Hemoglobin 8.9 g/dL (12.0-15.0); Lymphocyte # 0.81 X10^3/ul (0.83-4.51); Lymphocyte % 6.6 % (19-41); Mean Corpuscular Hgb 30.5 pg (27.0-32.0); Mean Corpuscular Volume 95.2 fL (81-99); Mean Platelet Vol. 10.3 fl (6.2-12.0); Monocyte% 5.7 % (0-10); NRBC Flagged by Analyzer 0 % (0-5); Neutrophil # 10.64 X10^3/uL (2.7-7.7); Neutrophil % 86.5 % (47-70); Platelet Count 140 K/mm3 (150-450); RBC Distribution Width CV 14.2 % (11.6-14.6); RBC Distribution Width SD 49.6 fl (35.1-43.9); Red Blood Count 2.92 M/mm3 (4.2-5.4); White Blood Count 12.3 K/mm3 (4.4-11.0)
[2023-05-11] MEDS: Oxytocin 15 Units/NS 250ml 15 UNITS/250 ML IV.SOLN 83 UNITS IV (20:15)
--- NOTE | 2023-05-11 20:18 | DCINST_ITS ---
Discharge Instructions Diet Discharge Diet: No restrictions Activity Discharge Activity: May Not Drive (for 2 weeks or while taking narcotic pain medications.), May Shower and May Take a Tub Bath (in 7 days.) May resume sexual activity in: 4-6 weeks Weight Bearing Status: Full weight bearing Lifting Restrictions: 20 pounds Dressing / Incision Call your doctor if your incision/area has: Continuous Slow Oozing, Sudden Increased Bleeding, Increased Pain/ Swelling, Increased Redness and Foul Smelling Discharge Call your doctor if you observe: Fever of 101 or Higher and Using more than 1 pad per hour Suture Line Care: Avoid Pulling/Pushing and Avoid Pinching/Bending Cleanse incision/area with: Soap & Water and Keep Dressing Clean & Dry Follow Up Care Please Follow Up With: Judy Hennessy DO When: Call [phone] to make an appointment for an incision check in 1-2 weeks. Test Results: Test results from this visit will be discussed in further detail at your follow- up appointment, if applicable. Discharge Plan Admission Admit Date/Time: 05/11/23 07:08 Primary Reason for Your Visit: repeat section Attending Provider: Judy Henenssy Primary Care Provider: Celsa Angelo Primary Discharge Orders/Prescriptions Prescriptions: New oxycodone-acetaminophen [Percocet] 5-325 mg tablet 1 tab PO Q4H PRN (Reason: pain) 7 Days Qty: 20 0RF Rx Instructions: 1-2 tabs q 4 hrs as needed for pain naproxen 500 mg tablet 500 mg PO BID PRN (Reason: pain) Qty: 30 0RF Continued multivitamin Tablet 1 tab PO DAILY famotidine [Pepcid] 40 mg tablet 40 mg PO QHS Qty: 30 4RF Referrals / Follow Up: Care PhysicianCelsa Primary [Primary Care Provider] - Disposition Disposition (needs filled in before D/C Order can be placed): Home, Self Care
[2023-05-11] MEDS: Azithromycin 500 MG in Dextrose 5%-Water (250mL Bag) 250 ML 250 MG IV (20:20)
[2023-05-11] MEDS: Ketorolac 30 MG/ML Syringe IV (20:55)
[2023-05-11] MEDS: Lactated Ringers 1,000 ML 100 ML IV (21:35)
[2023-05-11] MEDS: Famotidine 20 MG Tablet 40 MG PO (21:42)
[2023-05-11 22:00] LABS: ALB/GLOB Ratio 0.7 RATIO (0.9-2.4); AST(SGOT) 28 U/L (15-37); Alanine Aminotransfer ALT/SGPT 10 U/L (13-56); Albumin, Serum 2.1 g/dL (3.2-5.0); Alkaline Phosphatase 101 U/L (45-117); Anion Gap 10 (5-15); BUN 9 mg/dL (7-18); BUN/Creat Ratio 9.9 RATIO (10-20); Chloride 105 mmol/L (98-107); Creatinine, Serum 0.91 mg/dL (0.55-1.02); EST Glomerular Filtration Rate 74 mL/min (>60); Est Glom Filt Rate - Afr Amer 89 mL/min (>60); Estimated Creatinine Clearance 64.49 ml/min; Globulin 3.2 g/dL (2.2-4.2); Glucose 188 mg/dL (74-106); Potassium 3.5 mmol/L (3.5-5.1); Protein, Total 5.3 g/dL (6.4-8.2); Sodium Level 135 mmol/L (136-145)
--- NOTE | 2023-05-11 22:15 | NURSING ---
Epidural catheter removed. blue tip intact.
[2023-05-12] VITALS (7 sets, daily range): BP systolic 90–105; BP diastolic 56–65; PULSE 69–84; RESP 15–18; TEMP 36.3–37.2; O2SAT 97–99
[2023-05-12] MEDS: Acetaminophen 500 MG Tablet 1000 MG PO ×4 (00:29→18:41)
[2023-05-12] MEDS: Ketorolac 30 MG/ML Syringe IV ×2 (02:26→08:20)
[2023-05-12] MEDS: 0.9% Saline Lock 10 ML Syringe IV ×2 (02:27→06:16)
[2023-05-12 02:58] LABS: Hematocrit 29.8 % (37-47); Mean Corp Hgb Conc 33.6 g/dL (32-36); Mean Corpuscular Hgb 30.7 pg (27.0-32.0); Mean Corpuscular Volume 91.4 fL (81-99); Mean Platelet Vol. 10.3 fl (6.2-12.0); Platelet Count 169 K/mm3 (150-450); RBC Distribution Width CV 14.2 % (11.6-14.6); RBC Distribution Width SD 47.6 fl (35.1-43.9); Red Blood Count 3.26 M/mm3 (4.2-5.4); White Blood Count 16.4 K/mm3 (4.4-11.0)
[2023-05-12] MEDS: Ondansetron 4 MG/2 ML Vial IV (06:17)
[2023-05-12] MEDS: Senna/Docusate Sodium 1 Tablet PO (12:41)
--- NOTE | 2023-05-12 15:07 | PCM.PN.OB ---
Subjective Subjective Patient doing well without complaints. Tolerating PO. Ambulating and voiding without difficulty. feeding well. Denies chest pain, shortness of breath, calf pain/swelling, fevers, chills, lightheadedness. Objective Data Objective Data Vital Signs: Vital Signs Temp Pulse Resp BP Pulse Ox O2 Del Method 98 F 74 15 94/57 L 99 Room Air 05/12/23 11:48 05/12/23 11:48 05/12/23 11:48 05/12/23 11:48 05/12/23 07:50 05/12/23 07:50 Oxygen Delivery Method Room Air Weight: 134 lb Body Mass Index (BMI) 25.3 Intake & Output: Intake and Output for Last 24 Hours 05/10/23 05/11/23 05/12/23 23:59 23:59 23:59 Intake Total 3390.63 / 3390.63 1000 / 1000 Output Total 1450 / 1450 1150 / 1150 Balance 1940.63 / 1940.63 -150 / -150 Lab / Micro Data 05/12/23 02:51 05/11/23 21:20 Labs: Laboratory Results - last 24 hr 05/11/23 20:00: WBC 12.3 H, RBC 2.92 L, Hgb 8.9 L, Hct 27.8 L, MCV 95.2 D, MCH 30.5, MCHC 32.0 D, RDW Std Deviation 49.6 H, RDW Coeff of Prisca 14.2, Plt Count 140 L, MPV 10.3, Immature Gran % (Auto) 0.900, Neut % (Auto) 86.5 H, Lymph % (Auto) 6.6 L, Redwood % (Auto) 5.7, Eos % (Auto) 0.1, Baso % (Auto) 0.2, Absolute Neuts (auto) 10.6 H, Absolute Lymphs (auto) 0.81 L, Nucleated RBC % 0, Sodium Cancelled, Potassium Cancelled, Chloride Cancelled, Carbon Dioxide Cancelled, Anion Gap Cancelled, BUN Cancelled, Creatinine Cancelled, Estim Creat Clear Calc Cancelled, Est GFR (MDRD) Af Amer Cancelled, Est GFR (MDRD) Non-Af Cancelled, BUN/Creatinine Ratio Cancelled, Glucose Cancelled, Calcium Cancelled, Total Bilirubin Cancelled, AST Cancelled, ALT Cancelled, Alkaline Phosphatase Cancelled, Total Protein Cancelled, Albumin Cancelled, Globulin Cancelled, Albumin/Globulin Ratio Cancelled 05/11/23 21:20: Sodium 135 L, Potassium 3.5, Chloride 105, Carbon Dioxide 20.0 L, Anion Gap 10, BUN 9, Creatinine 0.91, Estim Creat Clear Calc 64.49, Est GFR (MDRD) Af Amer 89, Est GFR (MDRD) Non-Af 74, BUN/Creatinine Ratio 9.9 L, Glucose 188 H, Calcium 8.0 L, Total Bilirubin 0.20, AST 28, ALT 10 L, Alkaline Phosphatase 101, Total Protein 5.3 L, Albumin 2.1 L, Globulin 3.2, Albumin/Globulin Ratio 0.7 L 05/12/23 02:51: WBC 16.4 H, RBC 3.26 L, Hgb 10.0 L, Hct 29.8 L, MCV 91.4, MCH 30.7, MCHC 33.6, RDW Std Deviation 47.6 H, RDW Coeff of Prisca 14.2, Plt Count 169, MPV 10.3 ROS Constitutional Constitutional: Reports systems reviewed and no addt'l complaints, except as documented Cardiovascular Cardiovascular: Reports systems reviewed and no addt'l complaints, except as documented Respiratory/Chest Respiratory/Chest: Reports systems reviewed and no addt'l complaints, except as documented Gastrointestinal Gastrointestinal: Reports systems reviewed and no addt'l complaints, except as documented Physical Exam Const alert, oriented x3 and no apparent distress HEENT Head and Scalp: atraumatic Resp normal respiratory effort GI soft to palpation and non-tender Inspection: incision intact, healing well and drainage (none) Bimanual Exam - Vag & Uterus: uterus non-tender Uterus Palpation: uterus fundus firm (below Umbilicus) Assessment & Plan (1) Status post delivery: COMMENT: failed tolac- vacuum attempt PLAN: Plan s/p LTCS PPD # 1 1. routine post care 2. breast feeding- support given 3. rh positive 4. rubella immune
[2023-05-12] MEDS: Naproxen 500 MG Tablet PO ×2 (15:40→23:58)
[2023-05-12] MEDS: Famotidine 20 MG Tablet 40 MG PO (22:29)
[2023-05-13] MEDS: Acetaminophen 500 MG Tablet 1000 MG PO ×3 (00:46→12:36)
[2023-05-13 02:49] VITALS: BP 98/54; RESP 16; TEMP 36.3
--- NOTE | 2023-05-13 07:24 | PN.OBGYN_ITS ---
Subjective Subjective Patient doing well without complaints. Tolerating PO. Ambulating and voiding without difficulty. Feeding well. Denies chest pain, shortness of breath, calf pain/swelling, fevers, chills, lightheadedness. Objective Data Objective Data Vital Signs: Vital Signs Temp Pulse Resp BP Pulse Ox O2 Del Method 97.4 F L 84 16 98/54 L 99 Room Air 05/13/23 02:49 05/12/23 19:27 05/13/23 02:49 05/13/23 02:49 05/12/23 07:50 05/13/23 02:49 Oxygen Delivery Method Room Air Weight: 134 lb Body Mass Index (BMI) 25.3 Intake & Output: Intake and Output for Last 24 Hours 05/11/23 05/12/23 05/13/23 23:59 23:59 23:59 Intake Total 3390.63 / 3390.63 1000 / 1000 Output Total 1450 / 1450 2950 / 2950 Balance 1940.63 / 1940.63 -1950 / -1950 Lab / Micro Data Attestation: I reviewed the patient's lab results. 05/12/23 02:51 05/11/23 21:20 ROS Constitutional Constitutional: Reports systems reviewed and no addt'l complaints, except as documented; Denies anorexia or headache(s) Cardiovascular Cardiovascular: Reports systems reviewed and no addt'l complaints, except as d ocumented; Denies dizziness, dyspnea, nausea or tachypnea Respiratory/Chest Respiratory/Chest: Reports systems reviewed and no addt'l complaints, except as documented; Denies cough, dyspnea, shortness of breath at rest or tachypnea Gastrointestinal Gastrointestinal: Reports systems reviewed and no addt'l complaints, except as documented; Denies abdominal pain, constipation or nausea Genitourinary Genitourinary: Reports systems reviewed and no addt'l complaints, except as documented; Denies burning urination, difficulty urinating, dysuria, urinary frequency or urinary incontinence Musculoskeletal Musculoskeletal: Reports systems reviewed and no addt'l complaints, except as documented Integumentary Integumentary: Reports systems reviewed and no addt'l complaints, except as documented Neurologic Neurologic: Reports systems reviewed and no addt'l complaints, except as documented; Denies abnormal speech, dizziness or headache(s) Psychiatric Psychiatric: Reports systems reviewed and no addt'l complaints, except as documented Endocrine Endocrinology: Reports systems reviewed and no addt'l complaints, except as documented Hematologic/Lymphatic Hematologic/Lymphatic: Reports systems reviewed and no addt'l complaints, except as documented Physical Exam Const alert, oriented x3 and no apparent distress Neck full ROM Resp normal respiratory effort, normal air movement and no retractions Effort and Inspection: able to speak in complete sentences and symmetric chest movement GI soft to palpation Inspection: incision intact Bladder / Kidney Exam: bladder normal to palpation Uterus Palpation: uterus fundus Extremity normal to inspection and full ROM Psych mental status grossly normal, thought process normal and cooperative Assessment & Plan (1) Status post delivery: COMMENT: failed tolac- vacuum attempt PLAN: s/p LTCS PPD # 2 1. routine post care 2. breast feeding- support given 3. rh positive 4. rubella immune 5. Discharge home (2) Positive GBS test: COMMENT: treat in labor (3) Desires (vaginal after ) trial: COMMENT: 70.1% per calculator . prior section was for breech 03/30 35% growth (4) AMA (advanced maternal age) multigravida 35+: COMMENT: declines genetic screening. plan 36 week growth US (5) Supervision of high risk , antepartum: COMMENT: PRR POLY: 05/13/23, boy Samir RUTH Ramirez, Spouse-Sher, Repeat C/S scheduled 05/16/23 Noon. (6) : QUALIFIERS: Weeks of gestation: 39 weeks Qualified Code(s): Z3A.39 - 39 weeks gestation of COMMENT: genetic, carrier, and ntd screening declined. nl anatomy, nl growth @33w Charges/Coding Multi Select Codes Urinary/Genital Urinary/Genital CPT Codes: No Charge
[2023-05-13 08:18] VITALS: BP 102/59; PULSE 79; RESP 16; TEMP 36.3; O2SAT 97
[2023-05-13] MEDS: Naproxen 500 MG Tablet PO (08:20)
[2023-05-13] MEDS: Senna/Docusate Sodium 1 Tablet PO (09:43)
[2023-05-13 12:45] VITALS: RESP 14
--- NOTE | 2023-07-01 13:37 | NURSING ---
07/01 documented failed on Delivery record
== END 2023-05-13 12:45 | disposition home or self-care (01) | DRG 788 ==
PROVIDERS: Admitting Provider Obstetrics & Gynecology; Visit Provider Obstetrics & Gynecology
DX: O32.4XX0 Maternal care for high head at term, not applicable or unspecified (principal); O34.219 Maternal care for unspecified type scar from previous cesarean delivery; O76 Abnormality in fetal heart rate and rhythm complicating labor and delivery; Z37.0 Single live birth; O99.824 Streptococcus B carrier state complicating childbirth; Z3A.39 39 weeks gestation of pregnancy; Z87.891 Personal history of nicotine dependence; O66.5 Attempted application of vacuum extractor and forceps
CPT/HCPCS: 59025; 59050; 80053; 85025; 85027; 86780; 86850; 86900; 86901; 99221; J7120; A4216; G0378; J2405; Q9968

== ENCOUNTER → 2024-01-09 | Outpatient (CLI) | payer SELFPAY ==
--- NOTE | 2024-01-09 15:31 | US_ITS ---
STUDY: FIRST TRIMESTER OBSTETRICAL ULTRASOUND REASON FOR EXAM: Female, 38 years old viability LMP: TECHNIQUE: Transvaginal TECHNICAL QUALITY: Adequate. PRIOR ULTRASOUND: None. FINDINGS: There is no evidence of normal . Abnormal endometrial echoes which are heterogeneous, thickened to as much as 2.7 cm, and there are numerous small cystic structures. A molar is not excluded although extremely unlikely-correlate with quantitative beta hCG. No endometrial fluid. Normal shape and size of the uterus measuring 9.7 x 7.0 x 4.9 cm. There is no demonstrated embryo ( pole). The right ovary measures 2.4 x 1.6 x 1.5 cm. There is no right ovarian cyst. There is no visualized right adnexal mass or complex lesion. The left ovary measures 3.6 x 2.3 x 1.9 cm. There is a 1.7 cm cystic structure of the left ovary. There is no visualized left adnexal mass or complex lesion. There is no fluid in the cul de sac. US/Transvaginal w/Preg US IMPRESSION: Markedly abnormal endometrial echoes as above. No normal seen. No evidence of ectopic . Correlate closely with quantitative beta hCG. Electronically Signed: Berlin Mota MD at 17:55 EDT ,
== END | disposition home or self-care (01) ==
LOC: US 15:31
PROVIDERS: Referring Provider Advanced Practice Midwife; Visit Provider Advanced Practice Midwife
DX: Z34.90 Encounter for supervision of normal pregnancy, unspecified, unspecified trimester (principal); Z3A.00 Weeks of gestation of pregnancy not specified
CPT/HCPCS: 76817

== ENCOUNTER → 2024-01-10 | Outpatient (CLI) | payer SELFPAY ==
[2024-01-10 15:46] LABS: hCG Titer Quant., Serum 165 mIU/mL (1-3)
== END | disposition home or self-care (01) ==
LOC: LAB 14:30
PROVIDERS: Referring Provider Obstetrics & Gynecology; Visit Provider Obstetrics & Gynecology
DX: N91.2 Amenorrhea, unspecified (principal)
CPT/HCPCS: 36415; 84702

== ENCOUNTER → 2024-01-13 | Outpatient (CLI) | payer SELFPAY ==
[2024-01-13 11:34] LABS: hCG Titer Quant., Serum 20 mIU/mL (1-3)
== END | disposition home or self-care (01) ==
PROVIDERS: Referring Provider Obstetrics & Gynecology; Visit Provider Obstetrics & Gynecology
DX: O02.1 Missed abortion (principal)
CPT/HCPCS: 36415; 84702

== ENCOUNTER → 2024-08-10 | Outpatient (CLI) | payer SELFPAY ==
[2024-08-16 13:07] LABS: HPV APTIMA, High Risk Negative (Negative)
== END | disposition home or self-care (01) ==
LOC: LABSPEC 16:32
PROVIDERS: Referring Provider Obstetrics & Gynecology; Visit Provider Obstetrics & Gynecology
DX: Z12.4 Encounter for screening for malignant neoplasm of cervix (principal)
CPT/HCPCS: 87624; 88175; G0145

== ENCOUNTER → 2025-01-03 | Outpatient (CLI) | payer SELFPAY ==
--- OUTSIDE RECORDS SUMMARY | 2025-01-03 06:49 | XMS RPT_ITS | CCD ---
Author Organization [facility] CliniSynj Care Team Providers Care Insole Department Worker Name Role Phone JANIE FONTANEZ Attending Unavailable JANIE FONTANEZ Attending Unavailable Amarilis Peraza Attending Unavailkrystina e JANIE FONTANEZ Admitting Unavailable JANIE FONTANEZ Attending Unavailable Care Physician, No Primary Primary Care Provider Unavailable Care Physician, No Primary Referring Provider Un available DIVYA Snow Attending Provider [phone] Care Physician, No Primary Primary Care Provider Unavailable Care Physician, No Primary Referring Provider Un available DIVYA Snow Attending Provider 1(330 Dr. Keara Salmon Attending Provider [phone] ) Dr. Judy Hennessy Attending Provider [phone] Care Physician, No Primary Primary Care Provider Unavailable Care Physician, No Primary Referring Provider Un available Dr. Keara Salmon Attending Provider [phone] ) Care Physician, No Primary Primary Care Provider Unavailable Care Physician, No Primary Referring Provider Un available Dr. Judy Hennessy Attending Provider 1( 30) DIVYA Barker Attending Provider [phone] Care Physician, No Primary Primary Care Provider Unavailable Care Physician, No Primary Referring Provider Un available Dr. Keara Salmon Attending Provider 1(330 ) DIVYA Snow Attending Provider 1(330 Dr. Judy Hennessy Admit Provider Dr. Judy Hennessy Other Provider Keara Salmon Attending Unavailable Care Physician, No Primary Primary Care Unava ilable Care Physician, No Primary Referring Unava ilable Judy Hennessy Attending Unavailabl e Care Physician, No Primary Primary Care Unava ilable Care Physician, No Primary Referring Unava ilable Keara Salmon Attending Unavailable Keara Salmon Referring Unavailable Care Physician, No Primary Primary Care Unava ilable Keara Salmon Attending Unavailable Keara Salmon Referring Unavailable Care Physician, No Primary Primary Care Unava ilable Candice Snow Attending Unavailable Candice Snow Referring Unavailable Care Physician, No Primary Primary Care Unava ilable Judy Hennessy Referring Unavailabl e Care Physician, No Primary Primary Care Unava ilable Judy Hennessy Attending Unavailabl e Medications Current Medications Medication Drug Class(es) Dates Sig (Normalized) Sig (Original) acetaminophen 325 mg / oxyCODONE hydrochloride 5 mg oral tablet (1 source) Opioid Agonist Start: 05-11-2023 take 1-2 tablets by mouth every four hours as needed for pain Oxycodone-Acetamin ophen (Percocet) 5-325 mg tablet Active 1 TABLET PO Q4H 20 May 11, 2023 1-2 tabs q 4 hrs as needed for pain famotidine 40 mg oral tablet (3 sources) Histamine-2 Receptor Antagonist Start: 03-23-2023 take 1 tablet by mouth at bedtime Famotidine (Pepcid) 40 mg tablet Active 40 MG PO AT BEDTIME March 23, 2023 12:00am Multivitamin preparation (8 sources) Start: 12-28-2021 take 1 tablet by mouth once daily Multivitamin Active 1 TABLET PO DAILY December 28, 2021 12:00am Start: 12-28-2021 take 1 tablet by pipe th once daily Multivitamin Active 1 TABLET PO DAILY December 27, 2021 11:00pm naproxen 500 mg oral tablet (1 source) Nonsteroidal Anti-inflammatory Drug Start: 05-11-2023 take 500 mg by mouth twice daily Naproxen Active 500 MG PO TWICE A DAY May 11, 2023 12:00am Completed/Discontinued Medications Medication Drug Class(es) Dates Sig (Normalized) Sig (Original) medroxyPROGESTERone acetate 5 mg oral tablet (8 sources) Progestin Start: 2 End: 3 take 5 mg by mouth once daily Medroxyprogesterone Discontinued 5 MG PO DAILY November 20, 2021 12:00am September 07, 2022 10:26am Problems Active Problems Problem Classification Problem Date Documented Date Episodic/Chronic Bacterial infection; unspecified site (6 sources) Bacteria present; Translations: [Streptococcus, group B, as the cause of diseases classified elsewhere] 04-25-2023 Episodic Female infertility (8 sources) 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; Translations: [Female infertility associated with anovulation] 09-07-2022 Chronic Menstrual disorders (9 sources) Irregular periods; Translations: [Irregular menstruation, unspecified] Onset: 01-18-2024 09-07-2022 Chronic Other complications of (8 sources) Spotting per vagina in ; Translations: [Spotting complicating , unspecified trimester] 09-14-2022 Episodic Other complications of (8 sources) Multigravida of advanced maternal age; Translations: [Supervision of elderly multigravida, unspecified trimester] 09-07-2022 Episodic Other complications of (8 sources) High risk ; Translations: [Supervision of high risk , unspecified, unspecified trimester] 09-07-2022 Episodic Other complications of (20 sources) Supervision of elderly multigravida, unspecified trimester; Translations: [Elderly multigravida, unspecified as to episode of care or not applicable] 09-14-2022 Episodic Other complications of (10 sources) Spotting complicating , unspecified trimester; Translations: [Spotting complicating , antepartum condition or complication] 09-14-2022 Episodic Other complications of (20 sources) Supervision of high risk , unspecified, unspecified trimester; Translations: [Supervision of unspecified high-risk ] 09-14-2022 Episodic Other screening for suspected conditions (not mental disorders or infectious disease) (1 source) Encounter for screening for malignant neoplasm of cervix; Translations: [Encounter for screening for malignant neoplasm of cervix] Onset: 08-29-2024 Episodic Previous (20 sources) Maternal request for obstetric intervention; Translations: [Maternal care for unspecified type scar from previous delivery] 09-07-2022 Episodic Residual codes; unclassified (1 source) History of uterine scar from previous surgery; Translations: [Other postprocedural status] 05-13-2023 Episodic Past or Other Problems Problem Classification Problem Date Documented Da te Episodic/Chronic Other complications of (1 source) Missed ; Translations: [Missed ] Onset: 01-25-2024 Episodic Other and delivery including normal (20 sources) ; Translations: [Encounter for supervision of normal , unspecified, unspecified trimester] Onset: 01-19-2024 09-14-2022 Episodic Results Test Name Value Interpretation Reference Range Facility PAP IG HPV APTIMA 16/18,45on 08-16-2024 ADEQ Comment Normal . [facility] Comment on above: Order Comment: Speci men Comment: [id number] Specimen Comment: Source.............Cervix Specimen Comment: No. of containers..01 ThinPrep Vial Result Comment: Sati sfactory for evaluation. No endocervical component is identified. Performed By: #### L 7400.0280 #### [facility] [address] [place], [place], [id number] COMM . Normal . [facility] Comment on above: Order Comment: Speci men Comment: [id number] Specimen Comment: Source.............Cervix Specimen Comment: No. of containers..01 ThinPrep Vial Performed By: #### L 7400.0280 #### [facility] [address] [place], [place], [id number] COMMENT Comment Normal . [facility] Comment on above: Order Comment: Speci men Comment: [id number] Specimen Comment: Source.............Cervix Specimen Comment: No. of containers..01 ThinPrep Vial Result Comment: This liquid based ThinPrep(R) pap test was screened with the use of an image guided system. Performed By: #### L 7400.0280 #### [facility] [address] [place], [place], [address] DIAG Comment Normal . [facility] Comment on above: Order Comment: Speci men Comment: [id number] Specimen Comment: Source.............Cervix Specimen Comment: No. of containers..01 ThinPrep Vial Result Comment: NEGA TIVE FOR INTRAEPITHELIAL LESION OR MALIGNANCY. REACTIVE CELLULAR CHANGES NOTED. Performed By: #### L 7400.0280 #### [facility] [address] [place], [place], [id number] HPV APTIMA, HR Negative Normal Negative [facility] Comment on above: Order Comment: Speci men Comment: [id number] Specimen Comment: Source.............Cervix Specimen Comment: No. of containers..01 ThinPrep Vial Result Comment: This nucleic acid amplification test detects fourteen high- risk HPV types (16,18,31,33,35,39,45,51,52,56,58,59,66,68) without differentiation. Performed By: #### L 7400.0280 #### [facility] [address] [place], [place], [id number] HPV Angela Rfx Comment Normal . [facility] Comment on above: Order Comment: Speci men Comment: [id number] Specimen Comment: Source.............Cervix Specimen Comment: No. of containers..01 ThinPrep Vial Result Comment: Crit eria not met, HPV Genotype not performed. Performed at: [facility] Cyto Histo [address] [place] [id number] Shoulder Puncher: Yan Alexander MD, Phone: [phone] Performed at: [address] [id number] Shoulder Puncher: Loyda Garner MD, Phone: [phone] Performed at: =[address] [id number] Shoulder Puncher: Loyda Garner MD, Phone: [phone] Performed By: #### L 7400.0280 #### [facility] [address] [place], [place], [id number] PAPSMR Comment Normal . [facility] Comment on above: Order Comment: Speci men Comment: [id number] Specimen Comment: Source.............Cervix Specimen Comment: No. of containers..01 ThinPrep Vial Result Comment: The Pap smear is a screening test designed to aid in the detection of premalignant and malignant conditions of the uterine cervix. It is not a diagnostic procedure and should not be used as the sole means of detecting cervical cancer. Both false-positive and false-negative reports do occur. Performed By: #### L 7400.0280 #### [facility] [address] [place], [place], [id number] PERFORM Comment Normal . [facility] Comment on above: Order Comment: Speci men Comment: [id number] Specimen Comment: Source.............Cervix Specimen Comment: No. of containers..01 ThinPrep Vial Result Comment: Rain Mann, Mutual Funds Agent (ASCP) Performed By: #### L 7400.0280 #### [facility] [address] [place], [address] SIGN Comment Normal . [facility] Comment on above: Order Comment: Speci men Comment: [id number] Specimen Comment: Source.............Cervix Specimen Comment: No. of containers..01 ThinPrep Vial Result Comment: Deepthi Villar MD, Pathologist Performed By: #### L 7400.0280 #### [facility] [address] [place], [place], [address] Yeast Stacker Office Visit Reporton 08-10-2024 Yeast Stacker Office Visit Report [facility], [address] [place] [address] OFFICE VISIT Date of Service: 08/10/24 MR#: [id number] Acct: [id number] Name: FROYLAN CARLOS Rep #: [id number] : 1985 Provider: Dr. 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 Supervisor Required: No Is patient in pain?: No Allergies No Known Allergies Allergy (Verified 08/10/24 15:01) Medications ???Medication ???Instructions ???Recorded ???Confirmed ???Type NK 08/10/24 08/10/24 History Post menopausal: No Patient : No : No [facility] Medical History Complete 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 Irregular menstrual bleeding Surgical History (Updated 08/10/24 @ 15:02 by Jackelyn Porras) delivery delivered Family History Mother Hypertension Grandfather Myocardial infarction Heart disease Social History (Updated 08/10/24 @ 15:07 by Jackelyn Porras) adopted: No household members: spouse and children housing: house number of children: 2 current occupational status: unemployed current occupation: [employer] pets and animals: No history of recent travel: No sexually active: Yes Smoking Status: Former smoker Electronic Cigarette Use: not used second hand exposure: No alcohol intake: never substance use type: does not use well-balanced diet: about half the time caffeine: Yes Type: coffee Number of servings: 2 eating out: 1-3 times/week what type of physical activity do you participate in: none seatbelt use: always do you feel safe at home: Yes 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 Date Name GA/Weeks Outcome Route Bth Weight Infant Gen Labor Lgth Anesthesia Del Locatn Provider ESTEPHANIA 09/21/18 James 40 live - full term 5lbs Male Abimael 05/11/23 Samir 39 live - full term 7lbs 7oz Male [facility] Dr. Cannon Delivery Date: 09/21/18 Last Updated by: Keara Salmon MD breech Delivery Date: 05/11/23 Last Updated by: Jackelyn Porras AMA, GBS +, failed TOLAC, failed vacuum HPI Encounter for routine gynecological examination Details: FROYLAN CARLOS is a 38 year old who presents for annual exam. Last PAP: 08/01/20 History of abnormal PAP: no Last mammogram: n/a History of abnormal mammogram: n/a Colon cancer screening: due age 46 Other preventative health care screenings:states is followed by her pcp no contraception- trying to conceive. had a miscarriage in January and they stopped trying for a while. They are ready to try again. Female Reproductive History Cycle Length: 21-35 Bleeding Duration: 5 Questions: metorrhagia: No, sexually active: Yes, dyspareunia: No and PCB: No Menopausal Symptoms: No hot flashes, No night sweats, No weight change, No mood changes, No difficulty concentrating, No sleep problems and No change in libido ROS Const Constitutional: Reports as per HPI; Denies fatigue, increased appetite, poor appetite, night sweats, weight gain or weight loss Cardio Card: Denies chest pain Resp Resp: Denies cough or dyspnea GI GI: Reports as per HPI; Denies abdominal pain, bloating, constipation, nausea or vomiting : Reports as per HPI and other; Denies difficulty voiding, dysuria, hematuria, hot flashes, nipple discharge, pelvic pain, prolapse symptoms, urinary frequency, urinary incontinence, urinary urgency, vaginal discharge, vaginal dryness, vaginal odor or vaginal pruritus Skin Skin/Breast: Denies changing lesions, breast mass, breast pain, breast skin changes or nipple discharge Psych Psych: Denies anxiety, change in libido, depression or difficulty concentrating Exam Const General: cooperative, healthy appearing, comfortable, no acute distress, well developed and well groomed HENMT Head: normal to inspection and normocephalic Ears: hearing grossly normal bilaterally and external ears normal Nose: external nose normal Face and sinus: normal facial exam Neck Neck: normal visual inspection, full ROM and no lymphadenopathy Thyroid: thyroid normal Chest Chest palpation inspection: normal inspection of the chest Breast inspection: normal inspection of the breasts and (more content not included)... Normal [facility] hCG Titer Quant., Serumon HCG QUANT. 20 mIU/mL High 1-3 [facility] Comment on above: Result Comment: hCG levels with Gestational Age Gestational Age hCG mIU/mL (IU/L) 0.2 - 1 week 5 - 50 1-2 weeks 50 - 500 2-3 weeks 100 - 5000 3-4 weeks 500 - 69558 4-5 weeks 1000 - 19226 5-6 weeks 87355 - 100,000 6-8 weeks 47066 - 200,000 2-3 months 12380 - 100,000 Performed By: #### L 700.8000 #### [facility] [address] [place], [address] Yeast Stacker Office Visit Reporton 01-11-2024 Yeast Stacker Office Visit Report [facility] [address] [place] [address] OFFICE VISIT Date of Service: 01/11/24 MR#: [id number] Acct: [id number] Name: FROYLNA CARLOS Rep #: [id number] : 1985 Provider: Dr. Keara hewitt MD Age/Sex: 38/F Location: [facility] [place] Status: Signed Intake Vital Signs 06/24/23 06:39 01/11/24 07:57 01/11/24 07:58 Height 5 ft 1 in 5 ft 1 in 5 ft 1 in Weight: 116 lb 6 oz BMI 21.9 BP 125/83 H Intake Visit Reasons: possible miscarriage/molar Melt Supervisor Required: No Accompanied by: Significant Other Is patient in pain?: Yes Allergies No Known Allergies Allergy (Verified 01/11/24 07:58) Medications ???Medication ???Instructions ???Recorded ???Confirmed ???Type docosahexaenoic acid 200 mg mg PO 06/20/23 01/11/24 History capsule ( DHA) Is last menstrual period known: Yes Post menopausal: No Patient : Yes : No Current gender identity: female [facility] Medical History 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 Irregular menstrual bleeding Surgical History delivery delivered Family History Mother Hypertension Grandfather Myocardial infarction Heart disease Social History adopted: No household members: spouse and children housing: house number of children: 2 current occupational status: unemployed current occupation: [employer] pets and animals: No history of recent travel: No sexually active: Yes current gender identity: female Smoking Status: Former smoker Electronic Cigarette Use: not used second hand exposure: No alcohol intake: never substance use type: does not use well-balanced diet: about half the time caffeine: Yes Type: coffee Number of servings: 2 eating out: 1-3 times/week seatbelt use: always do you feel safe at home: Yes 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 unknown lmp and co bleeding and passing tissue last night, US yesterday showed empty GA with irregular area, quant of 165. she doesn't feel nauseated or abdominal cramping too much this morning, still . she feels like this was a miscarrige. History 3 Elective abortions Hx Para 2 Spontaneous abortions 1 Hx # Term Pregnancies Ectopic pregnancies Hx # Pregnancies Multiple births # of living children 2 Past Pregnancies Del. Date Name GA/Weeks Outcome Route Bth Weight Gen Labor Lgth Anesthesia Del Locatn Provider FOB 09/21/18 James 40 live - full term 5lbs Male Abimael 05/11/23 Samir 39 live - full term 7lbs 7oz Male [facility] Dr. Hennessy Sher Delivery Date: 09/21/18 Last Updated by: Keara Salmon MD breech Delivery Date: 05/11/23 Last Updated by: Jackelyn Porras AMA, GBS +, failed TOLAC, failed vacuum ROS Const Constitutional: Reports as per HPI; Denies fever(s) ENT ENT: Reports system reviewed and no additional complaints, except as documented Cardio Card: Reports system reviewed and no additional complaints, except as documented Resp Resp: Reports system reviewed and no additional complaints, except as documented GI GI: Reports as per HPI : Reports as per HPI Musc Musc: Reports system reviewed and no additional complaints, except as documented Skin Skin/Breast: Reports system reviewed and no additional complaints, except as documented Neuro Neuro: Reports system reviewed and no additional complaints, except as documented Endo Endo: Reports system reviewed and no additional complaints, except as documented Exam Const General: healthy appearing, comfortable and no acute distress HENMT Head: normal to inspection and normocephalic Neck Neck: no lymphadenopathy noted Thyroid: thyroid normal Chest Chest palpation inspection: normal inspection of the chest Resp Effort Inspection: normal respiratory effort Cardio Rate: regular rate Rhythm: regular rhythm GI Inspection: normal to inspection Palpation: soft and nontender External Female Exam: normal external appearance Speculum Exam - Vagina: normal appearance of the vagina and vaginal bleeding Bimanual Exam- Vagina Uterus: uterine shape normal and non-tender OB/External Speculum: vaginal bleeding Speculum Exam: vaginal bleeding Skin General: no rashes or lesions noted Neuro General: no focal motor deficits Extrem General: normal to inspection and no pedal edema Psych Appearanc (more content not included)... Normal [facility] hCG Titer Quant., Serumon HCG QUANT. 165 mIU/mL High 1-3 [facility] Comment on above: Order Comment: STAT Result Comment: hCG levels with Gestational Age Gestational Age hCG mIU/mL (IU/L) 0.2 - 1 week 5 - 50 1-2 weeks 50 - 500 2-3 weeks 100 - 5000 3-4 weeks 500 - 79171 4-5 weeks 1000 - 20966 5-6 weeks 40953 - 100,000 6-8 weeks 55371 - 200,000 2-3 months 75756 - 100,000 Performed By: #### L 700.8000 #### [facility] [address] [facility] [place], [place], [address] Transvaginal w/Preg USon Transvaginal w/Preg [facility] Services [address] [place] [address] Transvaginal w/Preg MR#: [id number] Acct: [id number] Name: FROYLAN CARLOS Rep #: [id number] : 1985 F 38 From: [place] pickering MD PCP: Care Physician,No Primary Status: REG CLI Study: Transvaginal w/Preg US Date of Exam: 01/09/24 Exam# [id number] Ordering Dr: Candice Snow CNM [id number] STUDY: FIRST TRIMESTER OBSTETRICAL ULTRASOUND REASON FOR EXAM: Female, 38 years old viability LMP: TECHNIQUE: Transvaginal TECHNICAL QUALITY: Adequate. PRIOR ULTRASOUND: None. FINDINGS: There is no evidence of normal . Abnormal endometrial echoes which are heterogeneous, thickened to as much as 2.7 cm, and there are numerous small cystic structures. A molar is not excluded although extremely unlikely-correlate with quantitative beta hCG. No endometrial fluid. Normal shape and size of the uterus measuring 9.7 x 7.0 x 4.9 cm. There is no demonstrated embryo ( pole). The right ovary measures 2.4 x 1.6 x 1.5 cm. There is no right ovarian cyst. There is no visualized right adnexal mass or complex lesion. The left ovary measures 3.6 x 2.3 x 1.9 cm. There is a 1.7 cm cystic structure of the left ovary. There is no visualized left adnexal mass or complex lesion. There is no fluid in the cul de sac. US/Transvaginal w/Preg US IMPRESSION: Markedly abnormal endometrial echoes as above. No normal seen. No evidence of ectopic . Correlate closely with quantitative beta hCG. Electronically Signed: [place] Mota MD at 17:55 EDT , CC: DIVYA Snow; No Primary Care Physician Entry Level Electrician: Signed Normal [facility] Basophil percentageOrdered B y: Judy Morgan on 05-12-2023 WBC (Bld) [#/Vol] 16.4 10*3/uL 4.4-11.0 [facility] Blood erythrocytes count (nu mber/volume)Ordered By: Judy Morgan on 05-12-2023 RBC (Bld) [#/Vol] 3.26 10*6/uL 4.2-5.4 [facility] Blood hemoglobin measurement (mass/volume)Ordered By: Judy Morgan on 05-12-2023 Hemoglobin (Bld) [Mass/Vol] 10.0 g/dL 12.0-15.0 [facility] Blood platelet mean volumeOr dered By: Judy oMrgan on 05-12-2023 Platelet mean volume (Bld) [Entitic vol] 10.3 fL 6.2-12.0 [facility] Determination of erythrocyte mean corpuscular volume (MCV)Ordered By: Judy Morgan on 05-12-2023 MCV (RBC) [Entitic vol] 91.4 fL 81-99 [facility] Hematocrit Auto (Bld) [Volum e fraction]Ordered By: Judy Morgan on 05-12-2023 Hematocrit (Bld) [Volume fraction] 29.8 % 37-47 [facility] - Hematology and Cell countsOrdered By: Judy Morgan on 05-12-2023 Erythrocyte distribution width (RBC) [Entitic vol] 47.6 fL 35.1-43.9 [facility] Erythrocyte distribution width (RBC) [Ratio] 14.2 % 11.6-14.6 [facility] MCH (RBC) [Entitic mass] 30.7 pg 27.0-32.0 [facility] MCHC Auto (RBC) [Mass/Vol]Or dered By: Judy Morgan on 05-12-2023 MCHC (RBC) [Mass/Vol] 33.6 g/dL 32-36 [facility] Platelets bldOrdered By: Carey Morgan on 05-12-2023 Platelets (Bld) [#/Vol] 169 10*3/uL 150-450 [facility] Absolute lymphocyte countOrd ered By: Judy Morgan on 05-11-2023 Lymphocytes Auto (Unsp spec) [#/Vol] 0.81 10*3/uL 0.83-4.51 [facility] Basophil percentageOrdered B y: Judy Morgan on 05-11-2023 Bilirubin [Mass/Vol] 0.20 mg/dL 0.20-1.00 [facility] Comment on above: For patients on eltr ombopag therapy, use of Dimension Danese TBIL is not recommended. Chloride [Moles/Vol] 105 mmol/L 98-107 [facility] Glucose [Mass/Vol] 188 mg/dL 74-106 [facility] Comment on above: Fasting Glucose resu lt greater than or equal to 126 mg/dL suggests DIABETES MELLITUS per A.D.A. criteria. Potassium [Moles/Vol] 3.5 mmol/L 3.5-5.1 [facility] Protein [Mass/Vol] 5.3 g/dL 6.4-8.2 [facility] Sodium [Moles/Vol] 135 mmol/L 136-145 [facility] Basophils/100 WBC (Bld) 0.2 % 0-1 [facility] Eosinophils/100 WBC (Bld) 0.1 % 0-5 [facility] Neutrophils (Bld) [#/Vol] 10.6 10*3/uL 2.0-7.7 [facility] Neutrophils/100 WBC (Bld) 86.5 % 47-70 [facility] Blood lymphocytes/100 leukoc ytesOrdered By: Judy Morgan on 05-11-2023 Lymphocytes/100 WBC (Bld) 6.6 % 19-41 [facility] Blood monocytes/100 leukocyt esOrdered By: Judy Morgan on 05-11-2023 Monocytes/100 WBC (Bld) 5.7 % 0-10 [facility] Laboratory - Chemistry and C hemistry - challengeOrdered By: Judy Morgan on 05-11-2023 ALP [Catalytic activity/Vol] 101 U/L 45-117 [facility] ALT [Catalytic activity/Vol] 10 U/L 13-56 [facility] CO2 [Moles/Vol] 20.0 mmol/L 21.0-32.0 [facility] Globulin (S) [Mass/Vol] 3.2 g/dL 2.2-4.2 [facility] Urea nitrogen/Creatinine [Mass ratio] 9.9 mg/mg 10-20 [facility] Laboratory - Hematology and Cell countsOrdered By: Judy Morgan on 05-11-2023 Immature granulocytes/100 WBC (Bld) 0.900 % 0.0-0.9 [facility] Comment on above: IG% - Immature Granu locytes (promyelocytes, myelocytes and metamyelocytes) > 1% indicates that a LEFT SHIFT is Present. Nucleated RBC/100 WBC (Bld) [Ratio] 0 % 0-5 [facility] No Panel InformationOrdered By: Judy Morgan on 05-11-2023 Estimated Creatinine Clearance Calc 64.49 ml/min [facility] Estimated GFR (MDRD) Amer 89 mL/min >60 [facility] Comment on above: GFR Calc Estimated GFR (MDRD) Non-Af Amer 74 mL/min >60 [facility] Comment on above: Non- GFR Calc Serum Treponema species anti body detectionOrdered By: Judy Morgan on 05-11-2023 Treponema sp Ab Ql (S) Non-Reactive [facility] Serum or plasma albumin michelle urement (mass/volume)Ordered By: Judy Morgan on 05-11-2023 Albumin [Mass/Vol] 2.1 g/dL 3.2-5.0 [facility] Serum or plasma albumin/glob ulin mass ratioOrdered By: Judy Morgan on 05-11-2023 Albumin/Globulin [Mass ratio] 0.7 {ratio} 0.9-2.4 [facility] Serum or plasma calcium michelle urement (mass/volume)Ordered By: Judy Morgan on 05-11-2023 Calcium [Mass/Vol] 8.0 mg/dL 8.5-10.1 [facility] Serum or plasma creatinine m easurement (mass/volume)Ordered By: Judy Morgan on 05-11-2023 Creatinine [Mass/Vol] 0.91 mg/dL 0.55-1.02 [facility] Comment on above: The validity of the calculated GFR & GFRAA in patients over 70 years has not been determined. Clinical correlation is essential. Serum or plasma urea nitroge n measurement (mass/volume)Ordered By: Judy Morgan on 05-11-2023 Urea nitrogen [Mass/Vol] 9 mg/dL 7-18 [facility] Thin prep Papanicolaou smear with manual screeningOrdered By: Judy Morgan on 05-11-2023 Thin prep Papanicolaou smear with manual screening 28 U/L 15-37 [facility] Thin prep Papanicolaou smear with manual screening 10 5-15 [facility] Laboratory - Chemistry and C hemistry - challengeon 05-04-2023 Glucose Ql (U) Negative [facility] Laboratory - Urinalysison Protein Ql (U) Negative [facility] Laboratory - Chemistry and C hemistry - challengeon 04-27-2023 Glucose Ql (U) Negative [facility] Laboratory - Urinalysison Protein Ql (U) Negative [facility] Laboratory - Chemistry and C hemistry - challengeon 04-20-2023 Glucose Ql (U) Negative [facility] Laboratory - Urinalysison Protein Ql (U) Negative [facility] No Panel InformationOrdered By: Judy Morgan on 04-20-2023 Group B Streptococcus Culture Streptococcus agalactiae (B) [facility] Laboratory - Chemistry and C hemistry - challengeon 04-13-2023 Glucose Ql (U) Negative [facility] Laboratory - Urinalysison Protein Ql (U) Negative [facility] Laboratory - Chemistry and C hemistry - challengeon 04-07-2023 Glucose Ql (U) Negative [facility] Laboratory - Urinalysison Protein Ql (U) Negative [facility] Laboratory - Chemistry and C hemistry - challengeon 03-23-2023 Glucose Ql (U) Negative [facility] Laboratory - Urinalysison Protein Ql (U) Negative [facility] Laboratory - Chemistry and C hemistry - challengeon 03-09-2023 Glucose Ql (U) Negative [facility] Laboratory - Urinalysison Protein Ql (U) Negative [facility] Absolute lymphocyte countOrd ered By: Judy Morgan on 02-10-2023 Lymphocytes Auto (Unsp spec) [#/Vol] 1.60 10*3/uL 0.83-4.51 [facility] Basophil percentageOrdered B y: Judy Morgan on 02-10-2023 Basophils/100 WBC (Bld) 0.2 % 0-1 [facility] Eosinophils/100 WBC (Bld) 0.7 % 0-5 [facility] Neutrophils (Bld) [#/Vol] 6.5 10*3/uL 2.0-7.7 [facility] Neutrophils/100 WBC (Bld) 73.1 % 47-70 [facility] WBC (Bld) [#/Vol] 8.9 10*3/uL 4.4-11.0 [facility] Blood erythrocytes count (nu mber/volume)Ordered By: Judy Morgan on 02-10-2023 RBC (Bld) [#/Vol] 3.83 10*6/uL 4.2-5.4 [facility] Blood hemoglobin measurement (mass/volume)Ordered By: Judy Morgan on 02-10-2023 Hemoglobin (Bld) [Mass/Vol] 11.6 g/dL 12.0-15.0 [facility] Blood lymphocytes/100 leukoc ytesOrdered By: Judy Morgan on 02-10-2023 Lymphocytes/100 WBC (Bld) 17.9 % 19-41 [facility] Blood monocytes/100 leukocyt esOrdered By: Judy Morgan on 02-10-2023 Monocytes/100 WBC (Bld) 7.5 % 0-10 [facility] Blood platelet mean volumeOr dered By: Judy Morgan on 02-10-2023 Platelet mean volume (Bld) [Entitic vol] 10.6 fL 6.2-12.0 [facility] Determination of erythrocyte mean corpuscular volume (MCV)Ordered By: Judy Morgan on 02-10-2023 MCV (RBC) [Entitic vol] 93.5 fL 81-99 [facility] Gestational diabetes screen 1-hour screen with 50g oral glucose loadOrdered By: Judy Morgan on 02-10-2023 Glucose 1 Hr post 50 g glucose PO [Mass/Vol] 103 mg/dL 70-140 [facility] HIV 1 and HIV-2 antibody ass ay with HIV-1 p24 antigen detectionOrdered By: Judy Morgan on 02-10-2023 HIV 1+2 Ab+HIV1 p24 Ag IA Ql Non-Reactive Nonreactive [facility] Hematocrit Auto (Bld) [Volum e fraction]Ordered By: Judy Morgan on 02-10-2023 Hematocrit (Bld) [Volume fraction] 35.8 % 37-47 [facility] Laboratory - Hematology and Cell countsOrdered By: Judy Morgan on 02-10-2023 Erythrocyte distribution width (RBC) [Entitic vol] 49.0 fL 35.1-43.9 [facility] Erythrocyte distribution width (RBC) [Ratio] 14.3 % 11.6-14.6 [facility] Immature granulocytes/100 WBC (Bld) 0.600 % 0.0-0.9 [facility] Comment on above: IG% - Immature Granu locytes (promyelocytes, myelocytes and metamyelocytes) > 1% indicates that a LEFT SHIFT is Present. MCH (RBC) [Entitic mass] 30.3 pg 27.0-32.0 [facility] Nucleated RBC/100 WBC (Bld) [Ratio] 0 % 0-5 [facility] MCHC Auto (RBC) [Mass/Vol]Or dered By: Judy Morgan on 02-10-2023 MCHC (RBC) [Mass/Vol] 32.4 g/dL 32-36 [facility] Platelets bldOrdered By: Carey Morgan on 02-10-2023 Platelets (Bld) [#/Vol] 266 10*3/uL 150-450 [facility] Serum Treponema species anti body detectionOrdered By: Judy Morgan on 02-10-2023 Treponema sp Ab Ql (S) Non-Reactive [facility] Laboratory - Chemistry and C hemistry - challengeon 01-13-2023 Glucose Ql (U) Negative [facility] Laboratory - Urinalysison Protein Ql (U) Negative [facility] Laboratory - Chemistry and C hemistry - challengeon 12-13-2022 Glucose Ql (U) Negative [facility] Laboratory - Urinalysison Protein Ql (U) Negative [facility] Laboratory - Chemistry and C hemistry - challengeon 11-18-2022 Glucose Ql (U) Negative [facility] Laboratory - Urinalysison Protein Ql (U) Negative [facility] Laboratory - Chemistry and C hemistry - challengeon 10-19-2022 Glucose Ql (U) Negative [facility] Laboratory - Urinalysison Protein Ql (U) Negative [facility] Culture, urineOrdered By: Dr Zana Salmon on 09-29-2022 Bacteria identified Cx Nom (U) Positive [facility] Laboratory - Chemistry and C hemistry - challengeon 09-27-2022 Bilirubin Ql (U) Negative [facility] Glucose Ql (U) Negative [facility] Ketones Ql (U) Negative [facility] pH (U) 5.0 [pH] [facility] Specific gravity (U) [Rel density] 1.010 [facility] Urobilinogen (U) [Mass/Vol] 0.1153515 mg/dL [facility] Laboratory - Hematology and Cell countson 09-27-2022 Hemoglobin Ql (U) Negative [facility] Laboratory - Specimen inform ationon 09-27-2022 Clarity (U) Cloudy [facility] Color (U) Yellow [facility] Laboratory - Urinalysison Nitrite Ql (U) Negative [facility] Protein Ql (U) Negative [facility] No Panel Informationon 09-27 Urine Leukocytes Negatve [facility] Culture, urineOrdered By: Demetris Snow on 09-17-2022 Bacteria identified Cx Nom (U) Culture exhibits no growth. [facility] Serum or plasma choriogonado tropin detectionOrdered By: Candice Snow on 09-16-2022 HCG ( test) [place]l [address] mIU/mL <4 [facility] Comment on above: hCG levels with Gest ational AgeGestational Age hCG mIU/mL (IU/L)0.2 - 1 week 5 - 501-2 weeks 50 - 5002-3 weeks 100 - 31597-3 weeks 500 - 027251-2 weeks 1000 - 204479-5 weeks 09300 - 100,0006-8 weeks 48367 - 200,0002-3 months 68121 - 100,000 Absolute lymphocyte countOrd ered By: Candice Snow on 09-14-2022 Lymphocytes Auto (Unsp spec) [#/Vol] 1.76 10*3/uL 0.83-4.51 [facility] Basophil percentageOrdered B y: Candice Snow on 09-14-2022 Basophils/100 WBC (Bld) 0.2 % 0-1 [facility] Eosinophils/100 WBC (Bld) 0.5 % 0-5 [facility] Neutrophils (Bld) [#/Vol] 6.9 10*3/uL 2.0-7.7 [facility] Neutrophils/100 WBC (Bld) 73.6 % 47-70 [facility] WBC (Bld) [#/Vol] 9.4 10*3/uL 4.4-11.0 [facility] Blood erythrocytes count (nu mber/volume)Ordered By: Candice Snow on 09-14-2022 RBC (Bld) [#/Vol] 4.65 10*6/uL 4.2-5.4 [facility] Blood hemoglobin measurement (mass/volume)Ordered By: Candice Snow on 09-14-2022 Hemoglobin (Bld) [Mass/Vol] 13.7 g/dL 12.0-15.0 [facility] Blood lymphocytes/100 leukoc ytesOrdered By: Candice Snow on 09-14-2022 Lymphocytes/100 WBC (Bld) 18.7 % 19-41 [facility] Blood monocytes/100 leukocyt esOrdered By: Candice Snow on 09-14-2022 Monocytes/100 WBC (Bld) 6.6 % 0-10 [facility] Blood platelet mean volumeOr dered By: Candice Snow on 09-14-2022 Platelet mean volume (Bld) [Entitic vol] 10.9 fL 6.2-12.0 [facility] Chlamydia trachomatis rRNA d etection by probe and target amplification methodOrdered By: Candice Snow on 09-14-2022 C. trachomatis rRNA RENZO+probe Ql (Unsp spec) Negative Negative [facility] Determination of erythrocyte mean corpuscular volume (MCV)Ordered By: Candice Snow on 09-14-2022 MCV (RBC) [Entitic vol] 88.8 fL 81-99 [facility] HIV 1 and HIV-2 antibody ass ay with HIV-1 p24 antigen detectionOrdered By: Candice Snow on 09-14-2022 HIV 1+2 Ab+HIV1 p24 Ag IA Ql Non-Reactive Nonreactive [facility] Hematocrit Auto (Bld) [Volum e fraction]Ordered By: Candice Snow on 09-14-2022 Hematocrit (Bld) [Volume fraction] 41.3 % 37-47 [facility] Laboratory - Hematology and Cell countsOrdered By: Candice Snow on 09-14-2022 Erythrocyte distribution width (RBC) [Entitic vol] 44.2 fL 35.1-43.9 [facility] Erythrocyte distribution width (RBC) [Ratio] 13.6 % 11.6-14.6 [facility] Immature granulocytes/100 WBC (Bld) 0.400 % 0.0-0.9 [facility] Comment on above: IG% - Immature Granu locytes (promyelocytes, myelocytes and metamyelocytes) > 1% indicates that a LEFT SHIFT is Present. MCH (RBC) [Entitic mass] 29.5 pg 27.0-32.0 [facility] Nucleated RBC/100 WBC (Bld) [Ratio] 0 % 0-5 [facility] Laboratory - Microbiology an d Antimicrobial susceptibilityOrdered By: Candice Snow on 09-14-2022 N. gonorrhoeae DNA RENZO+probe Ql (Unsp spec) Negative Negative [facility] Comment on above: Performed at: =[address] [id number] Director: Loyda Garner MD, Phone: [phone] MCHC Auto (RBC) [Mass/Vol]Or dered By: Candice Snow on 09-14-2022 MCHC (RBC) [Mass/Vol] 33.2 g/dL 32-36 [facility] No Panel InformationOrdered By: Candice Snow on 09-14-2022 Hepatitis B Surface Antigen Non-Reactive Nonreactive [facility] Hepatitis C Antibody Non-Reactive Nonreactive [facility] Comment on above: Non Reactive: < 0.8 Equivocal: >/= 0.8 to < 1.0 Reactive: >/= 1.0The CDC recommends that a reactive/equivocal HCV antibody result be followed up by the HCV Nucleic Acid Amplificationtest (395893) Rubella IgG Antibody Reactive Nonreactive [facility] Comment on above: Antibody Results Int erpretation of Immune Status Non Reactive Presumed Non-Immune Equivocal Equivocal Reactive Presumed Immune Platelets bldOrdered By: Ric Snow on 09-14-2022 Platelets (Bld) [#/Vol] 284 10*3/uL 150-450 [facility] Serum Treponema species anti body detectionOrdered By: Candice Snow on 09-14-2022 Treponema sp Ab Ql (S) Non-Reactive [facility] Serum or plasma choriogonado tropin detectionOrdered By: Candice Snow on 09-14-2022 HCG ( test) [place]l [address] mIU/mL <4 [facility] Comment on above: hCG levels with Gest ational AgeGestational Age hCG mIU/mL (IU/L)0.2 - 1 week 5 - 501-2 weeks 50 - 5002-3 weeks 100 - 42373-6 weeks 500 - 071324-6 weeks 1000 - 952854-3 weeks 50572 - 100,0006-8 weeks 41387 - 200,0002-3 months 22512 - 100,000 .Auto Diffon 09-22-2018 Ammonia mass conc (P) 0.90 10 3/mcL Normal 0.15-1.00 [facility] ([place]) Comment on above: Performed By: #### L H, PROL, TSH, FSH, DHEAS #### [address] [address] Basophils #/vol (Bld) 0.00 10 3/mcL Normal 0.00-0.19 [facility] ([place]) Comment on above: Performed By: #### L H, PROL, TSH, FSH, DHEAS #### [address] [address] Basophils/100 WBC (Bld) 0.1 % Normal 0.0-2.5 [facility] ([place]) Comment on above: Performed By: #### L H, PROL, TSH, FSH, DHEAS #### [address] [address] Eosinophils #/vol (Bld) 0.10 10 3/mcL Normal 0.00-0.40 [facility] ([place]) Comment on above: Performed By: #### L H, PROL, TSH, FSH, DHEAS #### [address] [address] Eosinophils/100 WBC (Bld) 0.4 % Normal 0.0-7.0 [facility] ([place]) Comment on above: Performed By: #### L H, PROL, TSH, FSH, DHEAS #### [address] [address] Lymphocytes #/vol (Bld) 2.10 10 3/mcL Normal 0.77-3.85 [facility] ([place]) Comment on above: Performed By: #### L H, PROL, TSH, FSH, DHEAS #### [address] [address] Lymphocytes/100 WBC (Bld) 12.3 % Normal 10.0-50.0 [facility] ([place]) Comment on above: Performed By: #### L H, PROL, TSH, FSH, DHEAS #### [address] [address] Monocytes/100 WBC (Bld) 5.1 % Normal 1.7-13.0 [facility] ([place]) Comment on above: Performed By: #### L H, PROL, TSH, FSH, DHEAS #### [address] [address] Neutrophils/100 WBC (Bld) 82.1 % High 37.0-80.0 [facility] ([place]) Comment on above: Performed By: #### L H, PROL, TSH, FSH, DHEAS #### [address] [address] .NEUABSon 09-22-2018 Neutrophils #/vol (Bld) 13.80 10 3/mcL High 2.85-6.1 6 [facility] ([place]) Comment on above: Performed By: #### L H, PROL, TSH, FSH, DHEAS #### [address] [address] CBCon 09-22-2018 Erythrocyte distribution width Ratio (RBC) 14.1 % Normal 11.5-14.5 [facility] ([place]) Comment on above: Performed By: #### L H, PROL, TSH, FSH, DHEAS #### [place] [address] Hematocrit Volume Fraction (Bld) 34.8 % Low 37.0-47.0 [facility] ([place]) Comment on above: Performed By: #### L H, PROL, TSH, FSH, DHEAS #### [place] [address] Hemoglobin mass conc (Bld) 11.9 G/dL Low 12.0-16.0 [facility] ([place]) Comment on above: Performed By: #### L H, PROL, TSH, FSH, DHEAS #### [place] [address] MCH Entitic mass (RBC) 31.7 pg High 27.0-31.2 [facility] ([place]) Comment on above: Performed By: #### L H, PROL, TSH, FSH, DHEAS #### [place] [address] MCHC mass conc (RBC) 34.3 G/dL Normal 33.0-37.0 [facility] ([place]) Comment on above: Performed By: #### L H, PROL, TSH, FSH, DHEAS #### [place] [address] MCV Entitic volume (RBC) 92.3 fL Normal 80.0-94.0 [facility] ([place]) Comment on above: Performed By: #### L H, PROL, TSH, FSH, DHEAS #### [place] [address] Platelet mean volume Entitic volume (Bld) 10.1 fL Normal 7.4-10.4 [facility] ([place]) Comment on above: Performed By: #### L H, PROL, TSH, FSH, DHEAS #### [place] [address] Platelets #/vol (Bld) 150 10 3/mcL Normal 130-400 [facility] ([place]) Comment on above: Performed By: #### L H, PROL, TSH, FSH, DHEAS #### [address] [address] RBC #/vol (Bld) 3.77 10 6/mcL Low 4.20-5.40 [facility] ([place]) Comment on above: Performed By: #### L H, PROL, TSH, FSH, DHEAS #### [place] [address] WBC #/vol (Bld) 16.80 10 3/mcL High 4.60-10.80 [facility] ([place]) Comment on above: Performed By: #### L H, PROL, TSH, FSH, DHEAS #### [place] [address] ABO/Rh Retype Gelon 09-21-19 19 ABO/Rh Retype Gel Positive [facility] ([place]) Comment on above: Order Comment: Order ed by Discern Performed By: #### L H, PROL, TSH, FSH, DHEAS #### [place] [address] Gel ABOon 09-20-2018 ABO/Rh Interp Positive [facility] ([place]) Comment on above: Performed By: #### L H, PROL, TSH, FSH, DHEAS #### [place] [address] Gel ABSon 09-20-2018 Antibody Screen Gel Negative Normal [facility] ([place]) Comment on above: Performed By: #### L H, PROL, TSH, FSH, DHEAS #### [place] [address] .Auto Diffon 09-19-2018 Ammonia mass conc (P) 0.80 10 3/mcL Normal 0.15-1.00 [facility] ([place]) Comment on above: Performed By: #### C BC, ADIFF, ANEU, ABOG, ANSG #### [address] [address] Basophils #/vol (Bld) 0.10 10 3/mcL Normal 0.00-0.19 [facility] ([place]) Comment on above: Performed By: #### C BC, ADIFF, ANEU, ABOG, ANSG #### [address] [address] Basophils/100 WBC (Bld) 0.8 % Normal 0.0-2.5 [facility] ([place]) Comment on above: Performed By: #### C BC, ADIFF, ANEU, ABOG, ANSG #### [address] [address] Eosinophils #/vol (Bld) 0.10 10 3/mcL Normal 0.00-0.40 [facility] ([place]) Comment on above: Performed By: #### C BC, ADIFF, ANEU, ABOG, ANSG #### [address] [address] Eosinophils/100 WBC (Bld) 0.9 % Normal 0.0-7.0 [facility] ([place]) Comment on above: Performed By: #### C BC, ADIFF, ANEU, ABOG, ANSG #### [address] [address] Lymphocytes #/vol (Bld) 2.70 10 3/mcL Normal 0.77-3.85 [facility] ([place]) Comment on above: Performed By: #### C BC, ADIFF, ANEU, ABOG, ANSG #### [address] [address] Lymphocytes/100 WBC (Bld) 25.0 % Normal 10.0-50.0 [facility] ([place]) Comment on above: Performed By: #### C BC, ADIFF, ANEU, ABOG, ANSG #### [address] [address] Monocytes/100 WBC (Bld) 7.2 % Normal 1.7-13.0 [facility] ([place]) Comment on above: Performed By: #### C BC, ADIFF, ANEU, ABOG, ANSG #### [address] [address] Neutrophils/100 WBC (Bld) 66.1 % Normal 37.0-80.0 [facility] ([place]) Comment on above: Performed By: #### C BC, ADIFF, ANEU, ABOG, ANSG #### [address] [address] .NEUABSon 09-19-2018 Neutrophils #/vol (Bld) 7.10 10 3/mcL High 2.85-6.16 [facility] ([place]) Comment on above: Performed By: #### L H, PROL, TSH, FSH, DHEAS #### [address] [address] CBCon 09-19-2018 Erythrocyte distribution width Ratio (RBC) 13.6 % Normal 11.5-14.5 [facility] ([place]) Comment on above: Performed By: #### C BC, ADIFF, ANEU, ABOG, ANSG #### [address] [address] Hematocrit Volume Fraction (Bld) 39.0 % Normal 37.0-47.0 [facility] ([place]) Comment on above: Performed By: #### C BC, ADIFF, ANEU, ABOG, ANSG #### [address] [address] Hemoglobin mass conc (Bld) 13.5 G/dL Normal 12.0-16.0 [facility] ([place]) Comment on above: Performed By: #### C BC, ADIFF, ANEU, ABOG, ANSG #### [address] [address] MCH Entitic mass (RBC) 31.7 pg High 27.0-31.2 [facility] ([place]) Comment on above: Performed By: #### C BC, ADIFF, ANEU, ABOG, ANSG #### [address] [address] MCHC mass conc (RBC) 34.6 G/dL Normal 33.0-37.0 [facility] ([place]) Comment on above: Performed By: #### C BC, ADIFF, ANEU, ABOG, ANSG #### [address] [address] MCV Entitic volume (RBC) 91.4 fL Normal 80.0-94.0 [facility] ([place]) Comment on above: Performed By: #### C BC, ADIFF, ANEU, ABOG, ANSG #### [address] [address] Platelet mean volume Entitic volume (Bld) 10.6 fL High 7.4-10.4 [facility] ([place]) Comment on above: Performed By: #### C BC, ADIFF, ANEU, ABOG, ANSG #### [address] [address] Platelets #/vol (Bld) 164 10 3/mcL Normal 130-400 [facility] ([place]) Comment on above: Performed By: #### C BC, ADIFF, ANEU, ABOG, ANSG #### [place] [id number] RBC #/vol (Bld) 4.26 10 6/mcL Normal 4.20-5.40 [facility] ([place]) Comment on above: Performed By: #### C BC, ADIFF, ANEU, ABOG, ANSG #### [address] [address] WBC #/vol (Bld) 10.70 10 3/mcL Normal 4.60-10.80 [facility] [place] Comment on above: Performed By: #### C BC, ADIFF, ANEU, ABOG, ANSG #### [address] [address] CURon 05-21-2018 CUR . MICRO - Microbiology PROCEDURE: Urine Culture [*1] SOURCE: Urine, Clean Catch BODY SITE: COLLECTED DATE/TIME: 05/19/2018 21:52 EST RECEIVED DATE/TIME: 05/19/2018 22:10 EST START DATE/TIME: 05/19/2018 22:10 EST FREE TEXT SOURCE: FINAL REPORTS Final Report [] Verified Date/Time/Personnel: 05/21/2018 07:38 EST No growth at 48 hours. Sensitivity testing not indicated. PRELIMINARY REPORTS Preliminary Report [] Verified Date/Time/Personnel: 05/20/2018 08:34 EST No growth to date Performing Locations *1: This test was performed at: [facility], [address] [place] [address], [facility] , [facility] Normal [facility] ([place]) Comment on above: Performed By: #### C UR #### [place] [id number] UAon 05-20-2018 Color Nom (U) Yellow Normal [facility] ([place]) Comment on above: Performed By: #### U A, UAMIC #### [place] [address] Glucose mass conc (U) Negative Normal Negative [facility] ([place]) Comment on above: Performed By: #### U A, UAMIC #### [place] [address] Ketones Ql (U) Negative Normal Neg-Trace [facility] ([place] Comment on above: Performed By: #### U A, UAMIC #### [place] [address] UA Appear Clear Normal Clear [facility] ([place] Comment on above: Performed By: #### U A, UAMIC #### [place] [id number] UA Blood Negative Normal Neg-Trace [facility] ([place] Comment on above: Performed By: #### U A, UAMIC #### [place] [address] UA Leuk Est Small Negative [facility] ([place] Comment on above: Performed By: #### U A, UAMIC #### [place] [id number] UA Nitrite Negative Normal Negative [facility] ([place] Comment on above: Performed By: #### U A, UAMIC #### [place] [address] UA pH 8.0 Normal 5.0 - 8.0 [facility] ([place] Comment on above: Performed By: #### U A, UAMIC #### [place] [address] UA Protein Negative Normal Negative [facility] ([place] Comment on above: Performed By: #### U A, UAMIC #### [place] [address] UA Spec Grav 1.010 Normal 1.006-1.029 [facility] ([place] Comment on above: Performed By: #### U A, UAMIC #### [place] [address] UA Specimen Type Clean Catch Normal [facility] ([place] Comment on above: Performed By: #### U A, UAMIC #### [place] [address] UA Urobilinogen 0.2 E.U./dL Normal 0.2-1.0 [facility] ([place] Comment on above: Performed By: #### U A, UAMIC #### [place] [address] Urobilinogen Qn (U) Negative Normal Neg-Trace [facility] ([place] Comment on above: Performed By: #### U A, UAMIC #### [place] [address] UAMICon 05-20-2018 RBC #/vol (U) Rare Normal 0-2 [facility] ([place] Comment on above: Performed By: #### U A, UAMIC #### [place] [address] UA Amorphus Trace Normal [facility] ([place] Comment on above: Performed By: #### U A, UAMIC #### [place] [address] UA Bacteria Trace Negative [facility] ([place] Comment on above: Performed By: #### U A, UAMIC #### [place] [address] UA Squam Epithelial 0-2 Normal 0-20 [facility] ([place] Comment on above: Performed By: #### U A, UAMIC #### [address] [address] UA WBC 3-5 Normal 0-5 [facility] ([place] Comment on above: Performed By: #### U A, UAMIC #### [place] [address] DHEASon 12-28-2017 DHEA-SO4 307 mcg/dL Normal 35-430 [facility] ([place]) Comment on above: Performed By: #### L H, PROL, TSH, FSH, DHEAS #### [place] [address] FSHon 12-21-2017 FSH 5.3 mIU/mL Normal [facility] ([place]) Comment on above: Result Comment: Adul t Female FSH Reference Ranges (06/03/99): Follicular phase 2.5 - 10.2 mIU/mL Midcycle phase 3.4 - 33.4 mIU/mL Luteal phase 1.5 - 9.1 mIU/mL Post menopausal 23.0 -116.3 mIU/mL Adult Male: 1.4 - 18.1 mIU/mL Performed By: #### L H, PROL, TSH, FSH, DHEAS #### [place] [address] LHon 12-21-2017 LH 6.2 mIU/mL Normal [facility] ([place] Comment on above: Result Comment: [facility] t Female LH Reference Ranges (07/16/11): Follicular phase 1.7 - 15.0 mIU/mL Midcycle phase 21.9 - 56.6 mIU/mL Luteal phase 0.6 - 16.3 mIU/mL Post menopausal 14.2 - 52.3 mIU/mL Performed By: #### L H, PROL, TSH, FSH, DHEAS #### [place] [address] PROLon 12-21-2017 Protein mass conc 12.4 ng/mL Normal 2.0-30.0 [facility] ([place] Comment on above: Performed By: #### L H, PROL, TSH, FSH, DHEAS #### [place] [id number] TSHon 12-21-2017 Thyrotropin Qn 1.600 mcIU/mL Normal 0.360-3.740 [facility] ([place]) Comment on above: Result Comment: Meera perea note ? as of 01/22/17 new pediatric reference intervals were added for this test. Performed By: #### L H, PROL, TSH, FSH, DHEAS #### [address] [address] Vital Signs Date Time Vital Sign Value Performing Clinician Lenard schuster 05-13-2023 12:45-0400 Respiratory rate 14 /min No Primary Care Physician [facility] 05-13-2023 08:18-0400 Body temperature 97.4 [degF] No Primary Care Physician [facility] 05-13-2023 08:18-0400 Diastolic blood pressure 59 mm[Hg] No Primary Care Physician [facility] 05-13-2023 08:18-0400 Heart rate 79 /min No Primary Care Physician [facility] 05-13-2023 08:18-0400 SaO2% (BldA) [Mass fraction] 97 % No Primary Care Physician [facility] 05-13-2023 08:18-0400 Systolic blood pressure 102 mm[Hg] No Primary Care Physician [facility] 05-11-2023 07:40-0400 Body height 154.94 cm No Primary Care Physician [facility] 05-11-2023 07:40-0400 Body mass index (BMI) [Ratio] 25.3 kg/m2 No Primary Care Physician [facility] 05-11-2023 07:40-0400 Body weight 60.78 kg No Primary Care Physician [facility] 05-10-2023 10:17-0400 Body mass index (BMI) [Ratio] 24.3 kg/m2 No Primary Care Physician [facility] 05-10-2023 10:17-0400 Body weight 60.49 kg No Primary Care Physician [facility] 05-10-2023 10:17-0400 Diastolic blood pressure 78 mm[Hg] No Primary Care Physician [facility] 05-10-2023 10:17-0400 Systolic blood pressure 112 mm[Hg] No Primary Care Physician [facility] 05-04-2023 10:49-0400 Body mass index (BMI) [Ratio] 24.2 kg/m2 No Primary Care Physician [facility] 05-04-2023 10:49-0400 Body weight 60.04 kg No Primary Care Physician [facility] 05-04-2023 10:49-0400 Diastolic blood pressure 79 mm[Hg] No Primary Care Physician [facility] 05-04-2023 10:49-0400 Systolic blood pressure 118 mm[Hg] No Primary Care Physician [facility] 04-27-2023 11:05-0400 Body mass index (BMI) [Ratio] 24.5 kg/m2 No Primary Care Physician [facility] 04-27-2023 11:05-0400 Body weight 60.83 kg No Primary Care Physician [facility] 04-27-2023 11:05-0400 Diastolic blood pressure 77 mm[Hg] No Primary Care Physician [facility] 04-27-2023 11:05-0400 Systolic blood pressure 115 mm[Hg] No Primary Care Physician [facility] 04-20-2023 10:37-0400 Body height 157.48 cm No Primary Care Physician [facility] 04-20-2023 10:37-0400 Body mass index (BMI) [Ratio] 24.3 kg/m2 No Primary Care Physician [facility] 04-20-2023 10:37-0400 Body weight 60.38 kg No Primary Care Physician [facility] 04-20-2023 10:37-0400 Diastolic blood pressure 82 mm[Hg] No Primary Care Physician [facility] 04-20-2023 10:37-0400 Systolic blood pressure 120 mm[Hg] No Primary Care Physician [facility] 04-13-2023 11:00-0400 Body mass index (BMI) [Ratio] 23.9 kg/m2 No Primary Care Physician [facility] 04-13-2023 11:00-0400 Body weight 59.42 kg No Primary Care Physician [facility] 04-13-2023 11:00-0400 Diastolic blood pressure 72 mm[Hg] No Primary Care Physician [facility] 04-13-2023 11:00-0400 Systolic blood pressure 114 mm[Hg] No Primary Care Physician [facility] 04-07-2023 11:15-0400 Body mass index (BMI) [Ratio] 24 kg/m2 No Primary Care Physician [facility] 04-07-2023 11:15-0400 Body weight 59.59 kg No Primary Care Physician [facility] 04-07-2023 11:15-0400 Diastolic blood pressure 74 mm[Hg] No Primary Care Physician [facility] 04-07-2023 11:15-0400 Systolic blood pressure 110 mm[Hg] No Primary Care Physician [facility] 03-23-2023 11:41-0400 Body mass index (BMI) [Ratio] 23.8 kg/m2 No Primary Care Physician [facility] 03-23-2023 11:41-0400 Body weight 59.13 kg No Primary Care Physician [facility] 03-23-2023 11:41-0400 Diastolic blood pressure 79 mm[Hg] No Primary Care Physician [facility] 03-23-2023 11:41-0400 Systolic blood pressure 118 mm[Hg] No Primary Care Physician [facility] 03-09-2023 11:38-0400 Body mass index (BMI) [Ratio] 23.6 kg/m2 No Primary Care Physician [facility] 03-09-2023 11:38-0400 Body weight 58.62 kg No Primary Care Physician [facility] 03-09-2023 11:38-0400 Diastolic blood pressure 77 mm[Hg] No Primary Care Physician [facility] 03-09-2023 11:38-0400 Systolic blood pressure 117 mm[Hg] No Primary Care Physician [facility] 02-25-2023 09:16-0400 Body mass index (BMI) [Ratio] 23.3 kg/m2 No Primary Care Physician [facility] 02-25-2023 09:16-0400 Body weight 57.83 kg No Primary Care Physician [facility] 02-25-2023 09:16-0400 Diastolic blood pressure 71 mm[Hg] No Primary Care Physician [facility] 02-25-2023 09:16-0400 Systolic blood pressure 106 mm[Hg] No Primary Care Physician [facility] 02-10-2023 09:49-0400 Body height 157.48 cm No Primary Care Physician [facility] 02-10-2023 09:48-0400 Body mass index (BMI) [Ratio] 23 kg/m2 No Primary Care Physician [facility] 02-10-2023 09:48-0400 Body weight 57.15 kg No Primary Care Physician [facility] 02-10-2023 09:48-0400 Diastolic blood pressure 72 mm[Hg] No Primary Care Physician [facility] 02-10-2023 09:48-0400 Systolic blood pressure 116 mm[Hg] No Primary Care Physician [facility] 01-13-2023 12:04-0400 Body mass index (BMI) [Ratio] 22.6 kg/m2 No Primary Care Physician [facility] 01-13-2023 12:04-0400 Body weight 56.24 kg No Primary Care Physician [facility] 01-13-2023 12:04-0400 Diastolic blood pressure 76 mm[Hg] No Primary Care Physician [facility] 01-13-2023 12:04-0400 Systolic blood pressure 126 mm[Hg] No Primary Care Physician [facility] 12-13-2022 12:04-0400 Body height 157.48 cm No Primary Care Physician [facility] 12-13-2022 12:02-0400 Body mass index (BMI) [Ratio] 22.8 kg/m2 No Primary Care Physician [facility] 12-13-2022 12:02-0400 Body weight 54.99 kg No Primary Care Physician [facility] 12-13-2022 12:02-0400 Diastolic blood pressure 82 mm[Hg] No Primary Care Physician [facility] 12-13-2022 12:02-0400 Systolic blood pressure 112 mm[Hg] No Primary Care Physician [facility] 11-18-2022 09:45-0400 Body mass index (BMI) [Ratio] 21.7 kg/m2 No Primary Care Physician [facility] 11-18-2022 09:45-0400 Body weight 54.03 kg No Primary Care Physician [facility] 11-18-2022 09:45-0400 Diastolic blood pressure 77 mm[Hg] No Primary Care Physician [facility] 11-18-2022 09:45-0400 Systolic blood pressure 120 mm[Hg] No Primary Care Physician [facility] 10-19-2022 09:33-0400 Body mass index (BMI) [Ratio] 21.4 kg/m2 No Primary Care Physician [facility] 10-19-2022 09:33-0400 Body weight 53.29 kg No Primary Care Physician [facility] 10-19-2022 09:33-0400 Diastolic blood pressure 79 mm[Hg] No Primary Care Physician [facility] 10-19-2022 09:33-0400 Systolic blood pressure 117 mm[Hg] No Primary Care Physician [facility] 09-27-2022 11:02-0400 Body mass index (BMI) [Ratio] 21.9 kg/m2 No Primary Care Physician [facility] 09-27-2022 11:02-0400 Body weight 54.48 kg No Primary Care Physician [facility] 09-27-2022 11:02-0400 Diastolic blood pressure 81 mm[Hg] No Primary Care Physician [facility] 09-27-2022 11:02-0400 Systolic blood pressure 138 mm[Hg] No Primary Care Physician [facility] 09-14-2022 11:03-0500 Body height 157.48 cm No Primary Care Physician [facility] 09-14-2022 11:02-0500 Body mass index (BMI) [Ratio] 22.1 kg/m2 No Primary Care Physician [facility] 09-14-2022 11:02-0500 Body weight 53.29 kg No Primary Care Physician [facility] 09-14-2022 11:02-0500 Diastolic blood pressure 78 mm[Hg] No Primary Care Physician [facility] 09-14-2022 11:02-0500 Systolic blood pressure 128 mm[Hg] No Primary Care Physician [facility] Encounters Encounter Date Encounter Type Care Provider Facility Start: 08-10-2024 Encounter for gynecological examination (general) (routine) without abnormal findings Judy Hennessy [facility] Start: 08-10-2024 End: 08-10-2024 ambulatory Judy Hennessy Facility:[facility] Start: 08-10-2024 End: 08-10-2024 ambulatory Judy Hennessy Facility:[facility] Start: 01-13-2024 End: 01-13-2024 ambulatory Keara Salmon Facility:[facility] Start: 01-11-2024 End: 01-11-2024 ambulatory Keara Salmon Facility:[facility] Start: 01-10-2024 End: 01-10-2024 ambulatory Keara Salmon Facility:[facility] Start: 01-09-2024 End: 01-09-2024 ambulatory Candice Snow Facility:[facility] Start: 05-13-2023 Non-patient / Non-visit No Theresa khan Care Physician [facility] Start: 05-12-2023 Non-patient / Non-visit No Theresa khan Care Physician [facility] Start: 05-11-2023 Non-patient / Non-visit No Theresa khan Care Physician [facility] Start: 05-11-2023 End: 05-13-2023 Evaluation and management of inpatient No Primary Care Physician [facility] Work Phone: Start: 05-10-2023 End: 05-10-2023 Patient encounter procedure No Primary Care Physician [facility] Work Phone: Start: 05-04-2023 End: 05-04-2023 Patient encounter procedure No Primary Care Physician [facility] Work Phone: Start: 04-27-2023 End: 04-27-2023 Patient encounter procedure No Primary Care Physician [facility] Work Phone: Start: 04-20-2023 End: 04-20-2023 ambulatory No Primary Care Physician [facility] Work Phone: Start: 04-20-2023 End: 04-20-2023 Patient encounter procedure No Primary Care Physician [facility]-Laboratory, Specimen Work Phone: Start: 04-20-2023 End: 04-20-2023 Patient encounter procedure No Primary Care Physician [facility] Work Phone: Start: 04-13-2023 End: 04-13-2023 Patient encounter procedure No Primary Care Physician [facility] Work Phone: Start: 04-07-2023 End: 04-07-2023 Patient encounter procedure No Primary Care Physician [facility] Work Phone: Start: 03-30-2023 End: 03-30-2023 ambulatory No Primary Care Physician [facility] Work Phone: Start: 03-30-2023 End: 03-30-2023 Patient encounter procedure No Primary Care Physician [facility], [facility] Work Phone: Start: 03-23-2023 End: 03-23-2023 Patient encounter procedure No Primary Care Physician [facility] Work Phone: Start: 03-09-2023 End: 03-09-2023 Patient encounter procedure No Primary Care Physician [facility] Work Phone: Start: 02-25-2023 End: 02-25-2023 Patient encounter procedure No Primary Care Physician [facility] Work Phone: Start: 02-10-2023 End: 02-10-2023 ambulatory No Primary Care Physician [facility] Work Phone: Start: 02-10-2023 End: 02-10-2023 Patient encounter procedure No Primary Care Physician [facility]Laboratory Work Phone: Start: 02-10-2023 End: 02-10-2023 Patient encounter procedure No Primary Care Physician [facility] Work Phone: Start: 01-13-2023 End: 01-13-2023 Patient encounter procedure No Primary Care Physician [facility] Work Phone: Start: 12-22-2022 End: 12-22-2022 ambulatory No Primary Care Physician [facility] Work Phone: Start: 12-22-2022 End: 12-22-2022 Patient encounter procedure No Primary Care Physician [facility] Start: 12-13-2022 End: 12-13-2022 Patient encounter procedure No Primary Care Physician [facility] Start: 11-18-2022 End: 11-18-2022 Patient encounter procedure No Primary Care Physician [facility] Start: 10-19-2022 End: 10-19-2022 Patient encounter procedure No Primary Care Physician [facility] Start: 09-27-2022 End: 09-27-2022 ambulatory No Primary Care Physician [facility] Work Phone: Start: 09-27-2022 End: 09-27-2022 Patient encounter procedure No Primary Care Physician [facility] Start: 09-16-2022 End: 09-16-2022 ambulatory No Primary Care Physician [facility] Work Phone: Start: 09-16-2022 End: 09-16-2022 Patient encounter procedure No Primary Care Physician [facility]Laboratory Start: 09-14-2022 End: 09-14-2022 ambulatory No Primary Care Physician [facility] Work Phone: Start: 09-14-2022 End: 09-14-2022 Patient encounter procedure No Primary Care Physician [facility]Labor[facility] Start: 09-14-2022 End: 09-14-2022 Patient encounter procedure No Primary Care Physician [facility] Start: 11-19-2021 End: 11-19-2021 Patient encounter procedure [facility] Start: 09-19-2018 End: 09-23-2018 Evaluation and management of inpatient JANIE FONTANEZ Facility:[facility] Start: 07-21-2018 End: 07-21-2018 Emergency department patient visit Amarilis Peraza Facility:[facility] Start: 05-19-2018 End: 05-20-2018 Patient encounter procedure JANIE FONTANEZ Facility:A Start: 12-20-2017 Encounter for other general examination JANIE FONTANEZ [facility] ([place]) Start: 12-20-2017 End: 12-25-2017 Patient encounter procedure JANIE FONTANEZ Facility:[facility]) Encounter for other general examination JANIERAYO FONTANEZ [facility] ([place]) Procedures Date Procedure Procedure Detail Performing Clinician Start: 04-20-2023 Group B Streptococcu s Culture No Primary Care Physician Start: 03-30-2023 Ultrasound scan for growth No Primary Care Physician Start: 12-22-2022 anatomy study No Primary Care Physician Start: 11-19-2021 Computed tomography of abdomen and pelvis with contrast H/O: section Status pos t delivery No Primary Care Physician Urine culture No Primary Car e Physician Urine culture No Primary Car e Physician Plan of Treatment Date Care Activity Detail Author Start: 05-13-2023 Patient discharge [facility] Start: 05-12-2023 Application of abdom inal corset [facility] Start: 05-12-2023 Notification of physician [facility] Start: 05-12-2023 Vital signs measurements [facility] Start: 05-12-2023 [facility] Start: 05-11-2023 Administration of medication [facility] Start: 05-11-2023 Ambulation therapy management [facility] Start: 05-11-2023 Application of device [facility] Start: 05-11-2023 Application of inter mittent pneumatic compression device [facility] Start: 05-11-2023 Assessment of risk o f venous thromboembolism [facility] Start: 05-11-2023 Catheterization of vein [facility] Start: 05-11-2023 Deep breathing and c oughing exercises [facility] Start: 05-11-2023 Exercises [facility] Start: 05-11-2023 Incentive spirometry [facility] Start: 05-11-2023 Measuring intake and output [facility] Start: 05-11-2023 Notification of physician [facility] Start: 05-11-2023 Procedure discontinued [facility] Start: 05-11-2023 Provision of activit y privileges [facility] Start: 05-11-2023 Skin care [facility] Start: 05-11-2023 Vital signs measurements [facility] Start: 05-11-2023 Wound care [facility] Start: 05-11-2023 End: 05-11-2023 [facility] Start: 05-11-2023 Application of abdom inal corset [facility] Start: 05-11-2023 Admission procedure [facility] Patient Education After a [facility] Work Phone: Patient referral [facility] Work Phone: Ultrasound scan for growth [facility] Payers Date Payer Category Payer Self-pay [id number] 2023 Unknown [id number] 2017 Unknown [id number] 1986 Unknown [id number] 2.16.8 [id number] 1986 Unknown [id number] 2.16.8 [id number] 1986 Unknown [id number] 2.16.8 [id number] 1986 Unknown [id number] 2.16.8 [id number] Unknown [id number] 2.16.8 [id number] Unknown [id number] 2.16.8 [id number] Unknown [id number] 2.16.8 [id number] Unknown [id number] 2.16.8 [id number] Unknown [id number] 2.16.8 [id number] Unknown [id number] 2.16.8 [id number] Social History Date Type Detail Facility Tobacco smoking stat RUSTIS Unknown if ever smoked [facility] Work Phone: Start: 1985 Sex Assigned At Female [facility] Start: 09-14-2022 End: 05-11-2023 Tobacco smoking status NHIS Unknown if ever smoked [facility] Goals Date Patient Goal Desired Activity /State Mental Status Date Assessment Result Facility 05-12-2023 Cognitive function Voice/Name [facility] Work Phone: Clinical Notes 05-11-2023 to 05-13-2023 Note Date & Type Note Facility 05-13-2023 Discharge summary Note Date/Time May 11, 2023 8:19pm [facility] Medical Records Department [address] [place] [address] Instructions for Home/Discharge Instructions 05/11/232017 MR#: [id number] Acct: [id number] Name: FROYLAN CARLOS Robert Rep #:[id number] : 1985 37 From: Judy Hennessy DO PCP: Care Physician,No Primary Status :ADM IN Discharge Instructions Diet Discharge Diet: No restrictions Activity Discharge Activity: May Not Drive (for 2 weeks or while taking narcotic pain medications.), May Shower and May Take a Tub Bath (in 7 days.) May resume sexual activity in: 4-6 weeks Weight Bearing Status: Full weight bearing Lifting Restrictions: 20 pounds Dressing / Incision Call your doctor if your incision/area has: Continuous Slow Oozing, Sudden Increased Bleeding, Increased Pain/ Swelling, Increased Redness and Foul Smelling Discharge Call your doctor if you observe: Fever of 101 or Higher and Using more than 1 pad per hour Suture Line Care: Avoid Pulling/Pushing and Avoid Pinching/Bending Cleanse incision/area with: Soap & Water and Keep Dressing Clean & Dry Follow Up Care Please Follow Up With: Judy Hennessy DO When: Call [phone] to make an appointment for an incision check in 1-2 weeks. Test Results: Test results from this visit will be discussed in further detail at your follow-up appointment, if applicable. Discharge Plan Admission Admit Date/Time: 05/11/23 07:08 Primary Reason for Your Visit: repeat section Attending Provider: Judy Hennessy Primary Care Provider: Care Physician,No Primary Discharge Orders/Prescriptions Prescriptions: New oxycodone-acetaminophen [Percocet] 5-325 mg tablet 1 tab PO Q4H PRN (Reason: pain) 7 Days Qty: 20 0RF Rx Instructions: 1-2 tabs q 4 hrs as needed for pain naproxen 500 mg tablet 500 mg PO BID PRN (Reason: pain) Qty: 30 0RF Continued multivitamin Tablet 1 tab PO DAILY famotidine [Pepcid] 40 mg tablet 40 mg PO QHS Qty: 30 4RF Referrals / Follow Up: Care Physician,No Primary [Primary Care Provider] - Disposition Disposition (needs filled in before D/C Order can be placed): Home, Self Care 05/13/23 0807<Electronically signed by Judy Hennessy DO>Judy Hennessy DO CC: No Primary Care Physician ~ Signed [facility] Work Phone: 1(778) 950-995111-03-2023 Progress note Author Candice Snow [facility] May 13, 2023 7:26am Note Date/Time May 13, 2023 7 :25am [facility] Medical Records Department [address] [place] [address] Progress Note - OBGYN 05/13/23 0724 MR#: [id number] Acct: [id number] Name: FROYLAN CARLOS Robert Rep #:[id number] : 1985 37 From: Candice Snow CNM PCP: Care Physician,No Primary Status :ADM IN Location: [place] [address] Subjective Subjective Patient doing well without complaints. Tolerating PO. Ambulating and voiding without difficulty. Feeding well. Denies chest pain, shortness of breath, calf pain/swelling, fevers, chills, lightheadedness. Objective Data Objective Data Vital Signs: Vital Signs Temp Pulse Resp BP Pulse Ox O2 Del Method 97.4 F L 84 16 98/54 L 99 Room Air 05/13/23 02:49 05/12/23 19:27 05/13/23 02:49 05/13/23 02:49 05/12/23 07:50 05/13/23 02:49 Oxygen Delivery Method Room Air Weight: 134 lb Body Mass Index (BMI) 25.3 Intake & Output: Intake and Output for Last 24 Hours 05/11/23 05/12/23 05/13/23 23:59 23:59 23:59 Intake Total 3390.63 / 3390.63 1000 / 1000 Output Total 1450 / 1450 2950 / 2950 Balance 1940.63 / 1940.63 -1949 / Lab / Micro Data Attestation: I reviewed the patient's lab results. 05/12/23 02:51 05/11/23 21:20 ROS Constitutional Constitutional: Reports systems reviewed and no addt'l complaints, except as documented; Denies anorexia or headache(s) Cardiovascular Cardiovascular: Reports systems reviewed and no addt'l complaints, except as documented; Denies dizziness, dyspnea, nausea or tachypnea Respiratory/Chest Respiratory/Chest: Reports systems reviewed and no addt'l complaints, except as documented; Denies cough, dyspnea, shortness of breath at rest or tachypnea Gastrointestinal Gastrointestinal: Reports systems reviewed and no addt'l complaints, except as documented; Denies abdominal pain, constipation or nausea Genitourinary Genitourinary: Reports systems reviewed and no addt'l complaints, except as documented; Denies burning urination, difficulty urinating, dysuria, urinary frequency or urinary incontinence Musculoskeletal Musculoskeletal: Reports systems reviewed and no addt'l complaints, except as documented Integumentary Integumentary: Reports systems reviewed and no addt'l complaints, except as documented Neurologic Neurologic: Reports systems reviewed and no addt'l complaints, except as documented; Denies abnormal speech, dizziness or headache(s) Psychiatric Psychiatric: Reports systems reviewed and no addt'l complaints, except as documented Endocrine Endocrinology: Reports systems reviewed and no addt'l complaints, except as documented Hematologic/Lymphatic Hematologic/Lymphatic: Reports systems reviewed and no addt'l complaints, exceptas documented Physical Exam Const alert, oriented x3 and no apparent distress Neck full ROM Resp normal respiratory effort, normal air movement and no retractions Effort and Inspection: able to speak in complete sentences and symmetric chest movement GI soft to palpation Inspection: incision intact Bladder / Kidney Exam: bladder normal to palpation Uterus Palpation: uterus fundus Extremity normal to inspection and full ROM Psych mental status grossly normal, thought process normal and cooperative Assessment & Plan (1) Status post delivery: COMMENT: failed tolac- vacuum attempt PLAN: s/p LTCS PPD # 2 1. routine post care 2. breast feeding- support given 3. rh positive 4. rubella immune 5. Discharge home (2) Positive GBS test: COMMENT: treat in labor (3) Desires (vaginal after ) trial: COMMENT: 70.1% per calculator . prior section was for breech 03/30 35% growth (4) AMA (advanced maternal age) multigravida 35+: COMMENT: declines genetic screening. plan 36 week growth US (5) Supervision of high risk , antepartum: COMMENT: PRR POLY: 05/13/23, boy [facility] James, Spouse-Sher, Repeat C/S scheduled 05/16/23 Noon. (6) : QUALIFIERS: Weeks of gestation: 39 weeks Qualified Code(s): Z3A.39 - 39 weeks gestation of COMMENT: genetic, carrier, and ntd screening declined. nl anatomy, nl growth @33w Charges/Coding Multi Select Codes Urinary/Genital Urinary/Genital CPT Codes: No Charge 05/13/23 0726 <Electronically signed by Candice Snow CNM> Cosigner Signature (if applicable): CC: ~ Signed [facility] Work Phone: 1(770) 500-451111-02-2023 Progress note Author Keara Salmon [facility] May 12, 2023 3:08pm Note Date/Time May 12, 2023 3 :08pm [facility] Medical Records Department [address] [place] [address] Progress Note - OBGYN 05/12/23 1507 MR#: [id number] Acct: [id number] Name: BREANNAFROYLAN J Rep #:[id number] : 1985 37 From: Keara jolly MD PCP: Care Physician,No Primary Status :ADM IN Location: RD605-3 Subjective Subjective Patient doing well without complaints. Tolerating PO. Ambulating and voiding without difficulty. feeding well. Denies chest pain, shortness of breath,calf pain/swelling, fevers, chills, lightheadedness. Objective Data Objective Data Vital Signs: Vital Signs Temp Pulse Resp BP Pulse Ox O2 Del Method 98 F 74 15 94/57 L 99 Room Air 05/12/23 11:48 05/12/23 11:48 05/12/23 11:48 05/12/23 11:48 05/12/23 07:50 05/12/23 07:50 Oxygen Delivery Method Room Air Weight: 134 lb Body Mass Index (BMI) 25.3 Intake & Output: Intake and Output for Last 24 Hours 05/10/23 05/11/23 05/12/23 23:59 23:59 23:59 Intake Total 3390.63 / 3390.63 1000 / 1000 Output Total 1450 / 1450 1150 / 1150 Balance 1940.63 / 1940.63 -150 / -150 Lab / Micro Data 05/12/23 02:51 05/11/23 21:20 Labs: Laboratory Results - last 24 hr 05/11/23 20:00: WBC 12.3 H, RBC 2.92 L, Hgb 8.9 L, Hct 27.8 L, MCV 95.2 D, MCH 30.5, MCHC 32.0 D, RDW Std Deviation 49.6 H, RDW Coeff of Prisca 14.2, Plt Count 140 L, MPV 10.3, Immature Gran % (Auto) 0.900, Neut % (Auto) 86.5 H, Lymph % (Auto) 6.6 L, Towns % (Auto) 5.7, Eos % (Auto) 0.1, Baso % (Auto) 0.2, Absolute Neuts (auto) 10.6 H, Absolute Lymphs (auto) 0.81 L, Nucleated RBC % 0, Sodium Cancelled, Potassium Cancelled, Chloride Cancelled, Carbon Dioxide Cancelled, Anion Gap Cancelled, BUN Cancelled, Creatinine Cancelled, Estim Creat Clear CalcCancelled, Est GFR (MDRD) Af Amer Cancelled, Est GFR (MDRD) Non-Af Cancelled, BUN/Creatinine Ratio Cancelled, Glucose Cancelled, Calcium Cancelled, Total Bilirubin Cancelled, AST Cancelled, ALT Cancelled, Alkaline Phosphatase Cancelled, Total Protein Cancelled, Albumin Cancelled, Globulin Cancelled, Albumin/Globulin Ratio Cancelled 05/11/23 21:20: Sodium 135 L, Potassium 3.5, Chloride 105, Carbon Dioxide 20.0 L, Anion Gap 10, BUN 9, Creatinine 0.91, Estim Creat Clear Calc 64.49, Est GFR (MDRD) Af Amer 89, Est GFR (MDRD) Non-Af 74, BUN/Creatinine Ratio 9.9 L, [id number] H, Calcium 8.0 L, Total Bilirubin 0.20, AST 28, ALT 10 L, Alkaline Phosphatase 101, Total Protein 5.3 L, Albumin 2.1 L, Globulin 3.2, Albumin/Globulin Ratio 0.7 L 05/12/23 02:51: WBC 16.4 H, RBC 3.26 L, Hgb 10.0 L, Hct 29.8 L, MCV 91.4, MCH 30.7, MCHC 33.6, RDW Std Deviation 47.6 H, RDW Coeff of Prisca 14.2, Plt Count 169,MPV 10.3 ROS Constitutional Constitutional: Reports systems reviewed and no addt'l complaints, except as documented Cardiovascular Cardiovascular: Reports systems reviewed and no addt'l complaints, except as documented Respiratory/Chest Respiratory/Chest: Reports systems reviewed and no addt'l complaints, except as documented Gastrointestinal Gastrointestinal: Reports systems reviewed and no addt'l complaints, except as documented Physical Exam Const alert, oriented x3 and no apparent distress HEENT Head and Scalp: atraumatic Resp normal respiratory effort GI soft to palpation and non-tender Inspection: incision intact, healing well and drainage (none) Bimanual Exam - Vag & Uterus: uterus non-tender Uterus Palpation: uterus fundus firm (below Umbilicus) Assessment & Plan (1) Status post delivery: COMMENT: failed tolac- vacuum attempt PLAN: Plan s/p LTCS PPD # 1 1. routine post care 2. breast feeding- support given 3. rh positive 4. rubella immune 05/12/23 1508 <Electronically signed by Keara Salmon MD> Cosigner Signature (if applicable): CC: ~ Signed [facility] Work Phone: 1(526) 764-496011-01-2023 Procedure [facility] 05-11-2023 Progress note Author Judy Morgan [facility] May 11, 2023 5:49pm Note Date/Time May 11, 2023 5 :49pm [facility] Medical Records Department [address] [place] [address] Progress Note 05/11/23 1746 MR#: [id number] Acct: [id number] Name: FROYLAN CARLOS Rep #:[id number] : 1985 37 From: Judy Hennessy DO PCP: Care Physician,No Primary Status :ADM IN Location: [id number] Progress Note pt is comfortable with epidural. until 23 minutes ago there has been a category 1 strip. contractions are q2 minutes and showed persistent lates after 5 contractions in a row Cx is 9 cm and +1 station with bearing down. The head is OP and attempt was madeto turn the head. while performing this, bloody fluid returned. an FSE was placed and the patient was turned to the side and the late decelerations resolved. Currently minimal variability with early decelerations. plan to continue close observation at bedside and anticipate soon 05/11/23 1749 <Electronically signed by Judy Hennessy DO> Judy Hennessy DO Cosigner Signature (if applicable): CC: ~ Signed [facility] Work Phone: 1(264) 341-977911-01-2023 History and physical note Author [facility] May 11, 2023 8:55am Note Date/Time May 11, 2023 8 :49am [facility] Medical Records Department [address] [place] [address] H&P Exam - HOST/[employer]ESS [employer] 05/11/23 0847 MR#: [id number] Acct: [id number] Name: FROYLAN CARLOS Robert Rep #:[id number] : 1985 37 From: Judy Hennessy DO PCP: Care Physician,No Primary Status :ADM IN Location: UF555-4 HPI - General General Date of Admission: 05/11/23 HPI Narrative FROYLAN CARLOS, is a 37 y/o @ 39 weeks 5 days who presents to L&D for IOL. She has a history of prior section for breech presentation. Her current cotto score is a 10. She was 3/80/-1 in office yesterday and membranes were stripped. 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 Judy Hennessy, DO) delivery delivered Social History adopted: No household members: spouse and children housing: house number of children: 1 current occupational status: unemployed current occupation: [employer] pets and animals: No history of recent travel: No sexually active: Yes Smoking Status: Former smoker Electronic Cigarette Use: not used second hand exposure: No alcohol intake: never substance use type: does not use well-balanced diet: about half the time caffeine: Yes Type: coffee Number of servings: 2 eating out: 1-3 times/week seatbelt use: always do you feel safe at home: Yes additional social history: 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 Date Name GA/Weeks Outcome Route Bth Weight Infant Gen Labor Lgth Anesthesia Del [facility] Provider FOB 09/21/18 James 40 live - full term 5lbs Male Abimael Delivery Date: 09/21/18 Last Updated by: Keara Salmon MD breech Visit Details Expected Delivery Route/Plan Labor Preferences- CB/BF classes: discussed labor support person: Sher labor intervention preferences: [] pain management options preferred: [] cut cord/dad catch: [] : Yes PP control planned: [] discussed possible routes of delivery and associated risks: [] special requests: [] Plans Covid status: [] Flu vaccine: [] Tdap vaccine: declines Rhogam:NA LARC form signed: [] Problem list reviewed and updated with the most current plan of care details and appropriate orders placed. Relevant counseling for the gestational age provided. Continue routine care and follow up unless otherwise noted in visit notes/problem list details OB Flowsheet Initial Weight: Not Recorded Date -?-?-?-?-?-?-?-?-?-?-?-?- EGA Weight BP Urine Prot -?-?-?-?-?-?-?-?-?-?-?-?- Glucose FHR FuHt Pres Dilation -?-?-?-?-?-?-?-?-?-?-?-?- Effaced St Visit Note 09/14/22 -?-?-?-?-?-?-?-?-?-?-?-?- 5w 4d 117 lb 8 oz 128/78 -?-?-?-?-?-?-?-?-?-?-?--?- -?-?-?-?-?-?-?-?-?-?-?-?- KW-CRL equal to dates. Desires for . NIPT box given. KW-CRL not equal to dates. m easuring ~4 weeks. Quants ordered for today and in 48 hours KW-CRL not equal to dates. m easuring ~4 weeks. Quants ordered for today and in 48 hours per JV 09/27/22 -?-?-?-?-?-?-?-?-?-?-?-?- 7w 3d 120 lb 2 oz 138/81 Nega tive -?-?-?-?-?-?-?-?-?-?-?-?- Negative 170 -?-?-?-?-?-?-?-?-?-?-?-?- SM- had some llq pain bedside ultrasound today show 1.2cm CRL 10/19/22 -?-?-?-?-?-?-?-?-?-?-?-?- 10w 4d 117 lb 8 oz 117/79 Nega tive -?-?-?-?-?-?-?-?-?-?-?-?- Negative 175 -?-?-?-?-?-?-?-?-?-?-?-?- JV- bedside hand held ultrasound performed today. pt has no complaints of cramping or bleeding. will sign hippa release form for prior section and to have NIPT drawn with labs. 11/18/22 -?-?-?-?-?-?-?-?-?-?-?-?- 14w 6d 119 lb 2 oz 120/77 Nega tive -?-?-?-?-?-?-?-?-?-?-?-?- Negative 145 -?-?-?-?-?-?-?-?-?-?-?-?- JV- no lof, vagi nal bleeding, or cramping. on Tuesday she had some brown discharge that has stopped. bedside scan does not show any signs of NICOLASA or fluid in the cervix. anatomy scan ordered. 12/13/22 -?-?-?-?-?-?-?-?-?-?-?-?- 18w 3d 121 lb 4 oz 112/82 Nega tive -?-?-?-?-?-?-?-?-?-?-?-?- Negative 145 19 -?-?-?-?-?-?-?-?-?-?-?-?- SM- no vb lof go od fm no regular ctx 01/13/23 -?-?-?-?-?-?-?-?-?-?-?-?- 22w 6d 124 lb 126/76 Negative -?-?-?-?-?-?-?-?-?-?-?-?- Negative 140 -?-?-?-?-?-?-?-?-?-?-?-?- JV- + move ment now, no cramping or bleeding 02/10/23 -?-?-?-?-?-?-?-?-?-?-?-?- 26w 6d 126 lb 116/72 -?-?-?-?--?-?-?-?-?-?-?-?- 140 27 -?-?-?-?-?-?-?-?-?-?-?-?- JV- no complaint s today. doing gct later today. (lives in [place]) will discuss tdap next visit. 02/25/23 -?-?-?-?-?-?-?-?-?-?-?-?- 29w 0d 127 lb 8 oz 106/71 -?-?-?-?-?-?-?-?-?-?-?-?- 140 28 -?-?-?-?-?-?-?-?-?-?-?-?- SM- no vb lof go od fm no regular ctx larc signed 03/09/23 -?-?-?-?-?-?-?-?-?-?-?-?- 30w 5d 129 lb 4 oz 117/77 Nega tive -?-?-?-?-?-?-?-?-?-?-?-?- Negative 145 30 -?-?-?-?-?-?-?-?-?-?-?-?- LC- no vb/ctx/lo f. good fm. declines tdap. 03/23/23 -?-?-?-?-?-?-?-?-?-?-?-?- 32w 5d 130 lb 6 oz 118/79 Nega tive -?-?--?-?-?-?-?-?-?-?-?-?- Negative 152 32 -?-?-?-?-?-?-?-?-?-?-?-?- JV- no lof, vagi nal bleeding, or dec fm. will try pepcid for nausea in the evening. if no improvement will try adding reglan. 04/07/23 -?-?-?-?-?-?-?-?-?-?-?-?- 34w 6d 131 lb 6 oz 110/74 Nega tive -?-?-?-?-?-?-?-?-?-?-?-?- Negative 130 36 -?-?-?-?-?-?-?-?-?-?-?-?- KW-no lof/vb/ctx . good fm. Pepcid is somewhat working for her, if it worsens again would like Reglan. 04/13/23 -?-?-?-?-?-?-?-?-?-?-?-?- 35w 5d 131 lb 114/72 Negative -?-?-?-?-?-?-?-?-?-?-?-?- Negative 130 35 -?-?-?-?-?-?-?-?-?-?-?-?- LC- no lof/vb/ct x. good fm. gbs next week. 04/20/23 -?-?-?-?-?-?-?-?-?-?-?-?- 36w 5d 133 lb 2 oz 120/82 Nega tive -?-?-?-?-?-?-?-?-?-?-?-?- Negative 146 36 Cephalic 1 -?-?-?-?-?-?-?-?-?-?-?-?- 60 -2 JV- gbs co llected. pt has decided that she wants to have a rpt section by 40 weeks if no delivery spontaneously by then. appears OP today based on scaphoid shape of abdomen today. This is what her prior section was for (stuck OP and decels) 04/27/23 -?-?-?-?-?-?-?-?-?-?-?-?- 37w 5d 134 lb 2 oz 115/77 Nega tive -?-?-?-?-?-?-?-?-?-?-?-?- Negative 140 37 Cephalic 3 -?-?-?-?-?-?-?-?-?-?-?-?- 80 -2 JV- no lof , vaginal bleeding, or dec fm. planning . unless does not go into labor by 40 weeks. 05/04/23 -?-?-?-?-?-?-?-?-?-?-?-?- 38w 5d 132 lb 6 oz 118/79 Nega tive -?-?-?-?-?-?-?-?-?-?-?-?- Negative 134 38 Cephalic 3 -?-?-?-?-?-?-?-?-?-?-?-?- 80 -2 JV- attemp tricia to strip membranes but baby's hand was in the way. will reassess next tuesday. pt may be a candidate for IOL if does not want . 05/10/23 -?-?-?-?-?-?-?-?-?-?-?-?- 39w 4d 133 lb 6 oz 112/78 Nega tive -?-?-?-?-?-?-?-?-?-?-?-?- Negative 144 38 Cephalic 3 -?-?-?-?-?-?-?-?-?-?-?-?- 80 -1 JV- planni ng for IOL tomorrow. No lof, vaginal bleeding, or dec fm. not feeling contractions. cotto score now 10 ROS Constitutional Constitutional: Denies change in weight, fatigue, fever(s), headache(s), poor appetite or weakness Eyes Eyes: Denies blurry vision, change in vision, seeing flashes or spots in vision ENT HEENT: Denies dizziness, headache(s), loss taste/smell or sore throat Cardiovascular Cardiovascular: Denies chest pain, dizziness, dyspnea, irregular heart rhythm, leg edema, palpitations, rapid heart rate or vomiting Respiratory/Chest Respiratory/Chest: Denies chest tightness, cough, dyspnea or breast pain Gastrointestinal Gastrointestinal: Denies abdominal pain, anorexia, constipation, cramping, diarrhea, hemorrhoids, vomiting or weight changes Genitourinary Genitourinary: Denies dysuria, flank pain, genital lesions, genital pain, urinary frequency or urinary urgency Musculoskeletal Musculoskeletal: Denies back pain, difficulty walking, joint pain, limited range of motion, muscle cramps or numbness Integumentary Integumentary: Denies lesions or unusual bruising Neurologic Neurologic: Denies abnormal movements, abnormal speech, dizziness, numbness, seizure-like activity or syncope Psychiatric Psychiatric: Denies anxiety, behavioral changes, change in appetite, change in libido, cognitive impairment, confusion, depression, difficulty concentrating, hallucinations or suicidal thoughts Endocrine Endocrinology: Denies excessive sweating, polydipsia or polyuria Hematologic/Lymphatic Hematologic/Lymphatic: Denies easy bleeding, easy bruising or lymphadenopathy Allergic/Immunologic Allergic/Immunologic: Denies itchy eyes, lip swelling, seasonal rhinorrhea, rhinitis, throat swelling, tongue swelling, eczemia, wheezing or asthma Vital Signs Vital Signs Vital Signs: 05/11/23 07:52 05/11/23 07:52 05/11/23 07:53 Temperature Temperature Source Pulse Rate 90 84 Blood Pressure 116/67 BP Systolic 116 BP Diastolic 67 Pulse Ox 05/11/23 07:53 05/11/23 07:51 05/11/23 07:51 Temperature 97.0 F L Temperature Source Temporal Pulse Rate Blood Pressure BP Systolic BP Diastolic Pulse Ox 99 Weight Weight: 134 lb Body Mass Index (BMI) 25.3 Physical Exam Const alert, oriented x3, no apparent distress and healthy appearing General Appearance: cooperative; Negative for anxious HEENT normocephalic Face and Sinus: normal facial exam Eyes EOMs intact bilaterally and no scleral icterus General Eye: normal appearance of both eyes Neck full ROM and supple Lymph Lymphatic: no lymphadenopathy noted Chest Chest: abnormal inspection of the chest Resp normal respiratory effort Effort and Inspection: able to speak in complete sentences Cardio regular rate GI soft to palpation and non-tender Inspection: gravid Palpation: soft; Negative for tender Back/Spine no CVA tenderness Extremity normal to inspection, full ROM and no clubbing, cyanosis or edema General Extremity: Negative for calf tenderness or edema Skin Lesions: no lesions Rashes: no rashes Psych mental status grossly normal Labs Labs Labs: Blood Type O POSITIVE Antibody Screen NEGATIVE Hct 36.7 % (37-47) L Hgb 12.4 g/dL (12.0-15.0) Pap Smear Negative Obstetrics Ultrasound Syphilis Total Ab Non-reactive Rubella IgG Antibody Reactive (Nonreactive) Hep Bs Antigen Non-Reactive (Nonreactive) Hepatitis C Antibody Non-Reactive (Nonreactive) Chlamydia DNA (RENZO) Negative (Negative) N.gonorrhoeae DNA (RENZO) Negative (Negative) HIV 1&2 Antibody Non-Reactive (Nonreactive) Glucose 1 Hr 50 gm 103 mg/dL (70-140) Assessment & Plan (1) Positive GBS test: COMMENT: treat in labor (2) Desires (vaginal after ) trial: COMMENT: 70.1% per calculator . prior section was for breech 03/30 35% growth (3) AMA (advanced maternal age) multigravida 35+: COMMENT: declines genetic screening. plan 36 week growth US (4) Supervision of high risk , antepartum: COMMENT: PRR POLY: 05/13/23, boy Samir PC James, Spouse-Sher, Repeat C/S scheduled 05/16/23 Noon. (5) : QUALIFIERS: Weeks of gestation: 39 weeks Qualified Code(s): Z3A.39 - 39 weeks gestation of COMMENT: genetic, carrier, and ntd screening declined. nl anatomy, nl growth @33w PLAN: Plan Patient presents IOL, plan management for with pitocin/AROM. Pain management: plans epidural. GBS positive- start pcn now . Management of any complications: prior section. The patietn was counseled on the risks, benefits, and alternatives to IOL and vaginal delivery after section. (see consent form in chart) risks include uterine rupture of 1% that could potentially lead to damage or . Risks of repeat section for failed induction also discussed. I have reviewed the [facility] [facility] and made any clinically relevant updates. 05/11/23 0855 <Electronically signed by Judy Hennessy DO> Cosigner Signature (if applicable): CC: Dr. Judy Hennessy, ; No Primary Care Physician~ Signed [facility] Work Phone: Evaluation noteNo assessment information available [facility] Work Phone: Evaluation note* Diagnosis Onset Date Resolution Status AMA (advanced maternal age) multigravida 35+ acute Desires (vaginal after ) trial acute acute Spotting in early acute Supervision of high risk , antepartum acute [facility] Work Phone: Evaluation note* Diagnosis Onset Date Resolution Status AMA (advanced maternal age) multigravida 35+ acute Desires (vaginal after ) trial acute acute Spotting in early acute Supervision of high risk , antepartum acute AMA (advanced maternal age) multigravida 35+ acute Desires (vaginal after ) trial acute acute Spotting in early acute Supervision of high risk , antepartum acute [facility] Work Phone: Evaluation note* Diagnosis Onset Date Resolution Status AMA (advanced maternal age) multigravida 35+ acute Desires (vaginal after ) trial acute acute Supervision of high risk , antepartum acute Spotting in early resolved AMA (advanced maternal age) multigravida 35+ acute Desires (vaginal after ) trial acute acute Supervision of high risk , antepartum acute Spotting in early resolved AMA (advanced maternal age) multigravida 35+ acute Desires (vaginal after ) trial acute acute Supervision of high risk , antepartum acute Spotting in early resolved AMA (advanced maternal age) multigravida 35+ acute Desires (vaginal after ) trial acute acute Supervision of high risk , antepartum acute Spotting in early resolved AMA (advanced maternal age) multigravida 35+ acute Desires (vaginal after ) trial acute acute Supervision of high risk , antepartum acute [facility] Work Phone: Evaluation note* Diagnosis Onset Date Resolution Status AMA (advanced maternal age) multigravida 35+ acute Desires (vaginal after ) trial acute acute Supervision of high risk , antepartum acute Spotting in early resolved AMA (advanced maternal age) multigravida 35+ acute Desires (vaginal after ) trial acute acute Supervision of high risk , antepartum acute Spotting in early resolved AMA (advanced maternal age) multigravida 35+ acute Desires (vaginal after ) trial acute acute Supervision of high risk , antepartum acute AMA (advanced maternal age) multigravida 35+ acute Desires (vaginal after ) trial acute acute Supervision of high risk , antepartum acute AMA (advanced maternal age) multigravida 35+ acute Desires (vaginal after ) trial acute acute Supervision of high risk , antepartum acute [facility] Work Phone: Evaluation note* Diagnosis Onset Date Resolution Status AMA (advanced maternal age) multigravida 35+ acute Desires (vaginal after ) trial acute acute Supervision of high risk , antepartum acute AMA (advanced maternal age) multigravida 35+ acute Desires (vaginal after ) trial acute acute Supervision of high risk , antepartum acute AMA (advanced maternal age) multigravida 35+ acute Desires (vaginal after ) trial acute acute Supervision of high risk , antepartum acute AMA (advanced maternal age) multigravida 35+ acute Desires (vaginal after ) trial acute acute Supervision of high risk , antepartum acute AMA (advanced maternal age) multigravida 35+ acute Desires (vaginal after ) trial acute acute Supervision of high risk , antepartum acute AMA (advanced maternal age) multigravida 35+ acute Desires (vaginal after ) trial acute acute Supervision of high risk , antepartum [facility] Work Phone: Evaluation note* Diagnosis Onset Date Resolution Status AMA (advanced maternal age) multigravida 35+ acute Desires (vaginal after ) trial acute acute Supervision of high risk , antepartum acute AMA (advanced maternal age) multigravida 35+ acute Desires (vaginal after ) trial acute acute Supervision of high risk , antepartum acute AMA (advanced maternal age) multigravida 35+ acute Desires (vaginal after ) trial acute acute Supervision of high risk , antepartum acute AMA (advanced maternal age) multigravida 35+ acute Desires (vaginal after ) trial acute acute Supervision of high risk , antepartum acute AMA (advanced maternal age) multigravida 35+ acute Desires (vaginal after ) trial acute acute Supervision of high risk , antepartum acute AMA (advanced maternal age) multigravida 35+ acute Desires (vaginal after ) trial acute acute Supervision of high risk , antepartum acute AMA (advanced maternal age) multigravida 35+ acute Desires (vaginal after ) trial acute acute Supervision of high risk , antepartum acute AMA (advanced maternal age) multigravida 35+ acute Desires (vaginal after ) trial acute acute Supervision of high risk , antepartum [facility] Work Phone: Evaluation note* Diagnosis Onset Date Resolution Status AMA (advanced maternal age) multigravida 35+ acute Desires (vaginal after ) trial acute acute Supervision of high risk , antepartum acute AMA (advanced maternal age) multigravida 35+ acute Desires (vaginal after ) trial acute acute Supervision of high risk , antepartum acute AMA (advanced maternal age) multigravida 35+ acute Desires (vaginal after ) trial acute acute Supervision of high risk , antepartum acute AMA (advanced maternal age) multigravida 35+ acute Desires (vaginal after ) trial acute acute Supervision of high risk , antepartum acute AMA (advanced maternal age) multigravida 35+ acute Desires (vaginal after ) trial acute acute Supervision of high risk , antepartum acute AMA (advanced maternal age) multigravida 35+ acute Desires (vaginal after ) trial acute acute Supervision of high risk , antepartum acute AMA (advanced maternal age) multigravida 35+ acute Desires (vaginal after ) trial acute acute Supervision of high risk , antepartum acute AMA (advanced maternal age) multigravida 35+ acute Desires (vaginal after ) trial acute acute Supervision of high risk , antepartum acute AMA (advanced maternal age) multigravida 35+ acute Desires (vaginal after ) trial acute Positive GBS test acute acute Supervision of high risk , antepartum acute AMA (advanced maternal age) multigravida 35+ acute Desires (vaginal after ) trial acute Positive GBS test acute acute Supervision of high risk , antepartum acute AMA (advanced maternal age) multigravida 35+ acute Desires (vaginal after ) trial acute Positive GBS test acute acute Supervision of high risk , antepartum acute AMA (advanced maternal age) multigravida 35+ acute Desires (vaginal after ) trial acute Positive GBS test acute acute Status post delivery acute Supervision of high risk , antepartum acute [facility] Work Phone: Summary Purpose Family History No Family History Records Found Relationship Condition Age at Onset Recorded Date/T tara mother Hypertension Unknown grandfather Myocardial infarction Unknown Cardiac disease Unknown Advance Directives No Advanced Directives Records Found Advance Directive Response Recorded Date/ Time Living Will No May 11 8:26am Power of Technical Applications Scientist No May 11, 2023 8:26am Chief Complaint and Reason for Visit Chief Complaint UROGRAM Abnormal rad iologic findings on diagnosti Chief Complaint NOB LMP 1, JV to s can, Ok to add per SM E ORDER EORDERS Reason for Visit AMA (advanced matern al age) multigravida 35+ Desires (vaginal after ) trial Spotting in early Supervision of high risk , antepartum Chief Complaint NOB LMP 07/11, JV to s can, Ok to add per SM E ORDER EORDERS UTI sx Reason for Visit AMA (advanced matern al age) multigravida 35+ Desires (vaginal after ) trial Spotting in early Supervision of high risk , antepartum AMA (advanced maternal age) multigravida 35+ Desires (vaginal after ) trial Spotting in early Supervision of high risk , antepartum Chief Complaint NOB LMP 07/11, JV to s can, Ok to add per SM E ORDER EORDERS UTI sx 10 wk ob 14 WK OB 18 WK OB CERVICAL LENGTH Reason for Visit AMA (advanced matern al age) multigravida 35+ Desires (vaginal after ) trial Supervision of high risk , antepartum Spotting in early AMA (advanced maternal age) multigravida 35+ Desires (vaginal after ) trial Supervision of high risk , antepartum Spotting in early AMA (advanced maternal age) multigravida 35+ Desires (vaginal after ) trial Supervision of high risk , antepartum Spotting in early AMA (advanced maternal age) multigravida 35+ Desires (vaginal after ) trial Supervision of high risk , antepartum Spotting in early AMA (advanced maternal age) multigravida 35+ Desires (vaginal after ) trial Supervision of high risk , antepartum Chief Complaint 10 wk ob 14 WK OB 18 WK OB CERVICAL LENGTH 22 WK OB 27 WK OB/GLUCOSE E-ORDER Reason for Visit AMA (advanced matern al age) multigravida 35+ Desires (vaginal after ) trial Supervision of high risk , antepartum Spotting in early AMA (advanced maternal age) multigravida 35+ Desires (vaginal after ) trial Supervision of high risk , antepartum Spotting in early AMA (advanced maternal age) multigravida 35+ Desires (vaginal after ) trial Supervision of high risk , antepartum AMA (advanced maternal age) multigravida 35+ Desires (vaginal after ) trial Supervision of high risk , antepartum AMA (advanced maternal age) multigravida 35+ Desires (vaginal after ) trial Supervision of high risk , antepartum Chief Complaint 18 WK OB CERVICAL LENGTH 22 WK OB 27 WK OB/GLUCOSE E-ORDER 29 WK OB 31 WK OB 33 WK OB Maternal care for unspecified type scar from previ Reason for Visit AMA (advanced matern al age) multigravida 35+ Desires (vaginal after ) trial Supervision of high risk , antepartum AMA (advanced maternal age) multigravida 35+ Desires (vaginal after ) trial Supervision of high risk , antepartum AMA (advanced maternal age) multigravida 35+ Desires (vaginal after ) trial Supervision of high risk , antepartum AMA (advanced maternal age) multigravida 35+ Desires (vaginal after ) trial Supervision of high risk , antepartum AMA (advanced maternal age) multigravida 35+ Desires (vaginal after ) trial Supervision of high risk , antepartum AMA (advanced maternal age) multigravida 35+ Desires (vaginal after ) trial Supervision of high risk , antepartum Chief Complaint 22 WK OB 27 WK OB/GLUCOSE E-ORDER 29 WK OB 31 WK OB 33 WK OB Maternal care for unspecified type scar from previ 35 WK OB 36 WK OB 37 WK OB Reason for Visit AMA (advanced matern al age) multigravida 35+ Desires (vaginal after ) trial Supervision of high risk , antepartum AMA (advanced maternal age) multigravida 35+ Desires (vaginal after ) trial Supervision of high risk , antepartum AMA (advanced maternal age) multigravida 35+ Desires (vaginal after ) trial Supervision of high risk , antepartum AMA (advanced maternal age) multigravida 35+ Desires (vaginal after ) trial Supervision of high risk , antepartum AMA (advanced maternal age) multigravida 35+ Desires (vaginal after ) trial Supervision of high risk , antepartum AMA (advanced maternal age) multigravida 35+ Desires (vaginal after ) trial Supervision of high risk , antepartum AMA (advanced maternal age) multigravida 35+ Desires (vaginal after ) trial Supervision of high risk , antepartum AMA (advanced maternal age) multigravida 35+ Desires (vaginal after ) trial Supervision of high risk , antepartum Chief Complaint 22 WK OB 27 WK OB/GLUCOSE E-ORDER 29 WK OB 31 WK OB 33 WK OB Maternal care for unspecified type scar from previ 35 WK OB 36 WK OB 37 WK OB 38 WK OB 39 WK OB 40 WK OB INDUCTION INDUCTION INDUCTION INDUCTION Reason for Visit AMA (advanced matern al age) multigravida 35+ Desires (vaginal after ) trial Supervision of high risk , antepartum AMA (advanced maternal age) multigravida 35+ Desires (vaginal after ) trial Supervision of high risk , antepartum AMA (advanced maternal age) multigravida 35+ Desires (vaginal after ) trial Supervision of high risk , antepartum AMA (advanced maternal age) multigravida 35+ Desires (vaginal after ) trial Supervision of high risk , antepartum AMA (advanced maternal age) multigravida 35+ Desires (vaginal after ) trial Supervision of high risk , antepartum AMA (advanced maternal age) multigravida 35+ Desires (vaginal after ) trial Supervision of high risk , antepartum AMA (advanced maternal age) multigravida 35+ Desires (vaginal after ) trial Supervision of high risk , antepartum AMA (advanced maternal age) multigravida 35+ Desires (vaginal after ) trial Supervision of high risk , antepartum AMA (advanced maternal age) multigravida 35+ Desires (vaginal after ) trial Positive GBS test Supervision of high risk , antepartum AMA (advanced maternal age) multigravida 35+ Desires (vaginal after ) trial Positive GBS test Supervision of high risk , antepartum AMA (advanced maternal age) multigravida 35+ Desires (vaginal after ) trial Positive GBS test Supervision of high risk , antepartum AMA (advanced maternal age) multigravida 35+ Desires (vaginal after ) trial Positive GBS test Status post delivery Supervision of high risk , antepartum Additional Source Comments INFORMATION SOURCE (unrecogn ized section and content) DATE CREATED AUTHOR 10/01/2018 [facility] ([place]) DATE CREATED AUTHOR AUTHOR'S ORGANIZ ATION 08/31/2024 [facility] Goals (unrecognized section and content) Goals may be documented in a n alternate sectionGoals may be documented in an alternate sectionGoals may be documented in an alternate sectionGoals may be documented in an alternate sectionGoals may be documented in an alternate sectionGoals may be documented in an alternate sectionGoals may be documented in an alternate sectionGoals may be documented in an alternate section Care Teams (unrecognized sec tion and content) Team Status: Active Member Role Status Dates No Primary Care Physician Primary Care Provider Active Team Status: Inactive Member Role Status Dates No Primary Care Physician Primary Care Provider, Refer ring Provider Active Candice Snow CNM Attending Provider Active Team Status: Inactive Member Role Status Dates No Primary Care Physician Primary Care Provider Active Candice Snow CNM Attending Provider, Referring Pro vider Active Team Status: Active Member Role Status Dates No Primary Care Physician Primary Care Provider Active Candice Snow CNM Attending Provider Active Team Status: Inactive Member Role Status Dates No Primary Care Physician Primary Care Provider Active Candice Snow CNM Attending Provider Active Team Status: Inactive Member Role Status Dates No Primary Care Physician Primary Care Provider, Refer ring Provider Active Dr. Keara Salmon MD Attending Provider Active Team Status: Inactive Member Role Status Dates No Primary Care Physician Primary Care Provider Active Dr. Keara Salmon MD Attending Provider, Referr ing Provider Active Team Status: Inactive Member Role Status Dates No Primary Care Physician Primary Care Provider, Refer ring Provider Active Dr. Judy Hennessy DO Attending Provider Activ e Team Status: Inactive Member Role Status Dates No Primary Care Physician Primary Care Provider Active Dr. Judy Hennessy DO Attending Provider, Refe rring Provider Active Team Status: Inactive Member Role Status Dates No Primary Care Physician Primary Care Provider, Refer ring Provider Active Serena Barker CNM Attending Provider Active Team Status: Inactive Member Role Status Dates No Primary Care Physician Primary Care Provider Active Dr. Judy Hennessy DO Attending Provider Activ e Team Status: Active Member Role Status Dates No Primary Care Physician Primary Care Provider Active Dr. Judy Hennessy DO Admit Prov ider, Attending Provider, Other Provider Active Team Status: Active Member Role Status Dates No Primary Care Physician Primary Care Provider Active Dr. Judy Hennessy DO Admit Provider, Other Pr ovider Active Dr. Keara Salmon MD Attending Provider Active Team Status: Active Member Role Status Dates No Primary Care Physician Primary Care Provider Active Dr. Judy Hnenessy DO Admit Provider, Other Pr ovider Active Candice Snow CNM Attending Provider Active Team Status: Inactive Member Role Status Dates No Primary Care Physician Primary Care Provider Active Dr. Judy Hennessy DO Admit Provider, Attendin g Provider Active FOR RECORDS PERTAINING TO PATIENTS WHO ARE OR HAVE BEEN ENROLLED IN A CHEMICAL DEPENDENCY/SUBSTANCEABUSE PROGRAM, SOME INFORMATION MAY BE OMITTED. This clinical summary was aggregated from multiple sources. Caution should be exercised in using it in the provision of clinical care. This summary normalizes information from multiple sources, and as a consequence, information in this document may materially change the coding, format and clinical context of patient data. In addition, data may be omitted in some cases. CLINICAL DECISIONS SHOULD BE BASED ON THE PRIMARY CLINICAL RECORDS. [facility]. provides no warranty or guarantee of the accuracy or completeness of information in this document.
[2025-01-03 08:54] LABS: hCG Titer Quant., Serum 52 mIU/mL (<9 non-preg)
== END | disposition home or self-care (01) ==
LOC: LAB 06:47
PROVIDERS: Referring Provider Obstetrics & Gynecology; Visit Provider Obstetrics & Gynecology
DX: Z34.90 Encounter for supervision of normal pregnancy, unspecified, unspecified trimester (principal)
CPT/HCPCS: 36415; 84702

== ENCOUNTER → 2025-01-05 | Outpatient (CLI) | payer SELFPAY ==
--- OUTSIDE RECORDS SUMMARY | 2025-01-05 07:06 | XMS RPT_ITS | CCD ---
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 Keara Salmon Attending Provider [phone] Dr. Judy Hennessy Attending Provider [phone] Care Physician, No Primary Primary Care Provider Unavailable Care Physician, No Primary Referring Provider Un available Dr. Keara Salmon Attending Provider [phone] Care Physician, No Primary Primary Care Provider Unavailable Care Physician, No Primary Referring Provider Un available Dr. Judy Hennessy Attending Provider [phone] DIVYA Barker Attending Provider [phone] Care Physician, No Primary Primary Care Provider Unavailable Care Physician, No Primary Referring Provider Un available Dr. Keara Salmon Attending Provider [phone] DIVYA Snow Attending Provider [phone] Dr. Judy Hennessy Admit Provider Dr. Judy Hennessy Other Provider Keara Salmon Attending Unavailable Keara Salmon Referring Unavailable Care Physician, No Primary Primary Care Unava ilCandice Murray Attending Unavailable Candice Snow Referring Unavailable Care Physician, No Primary Primary Care Unava ilable Care Physician, No Primary Primary Care Unava ilable Judy Hennessy Attending Unavailkrystina Hennessy, Judy Referring Unavailabl e Care Physician, No Primary Primary Care Unava ilable Judy Hennessy Attending Manuel Hennessy, Judy Referring Unavailkrystina e Keara Salmon Attending Unavailable Care Physician, No Primary Primary Care Unava ilable Care Physician, No Primary Referring Unava ilable Care Physician, No Primary Primary Care Unava ilable Care Physician, No Primary Referring Unava ilable Judy Hennessy Attending Unavailkrystina e Keara Salmon Attending Unavailable Care Physician, No Primary Primary Care Unava ilable Keara Salmon Referring Unavailable Medications Current Medications Medication Drug Class(es) Dates Sig (Normalized) Sig (Original) acetaminophen 325 mg / oxyCODONE hydrochloride 5 mg oral tablet (1 source) Opioid Agonist Start: 05-11-2023 take 1-2 tablets by mouth every four hours as needed for pain Oxycodone-Acetamin ophen (Percocet) 5-325 mg tablet Active 1 TABLET PO Q4H 27 01May 11, 2023 1-2 tabs q 4 hrs [...] [Supervision of unspecified high-risk ] 09-14-2022 Episodic Previous (20 sources) Maternal request for [...] unspecified, unspecified trimester] Onset: 01-19-2024 09-14-2022 Episodic Other screening for suspected conditions (not mental disorders or infectious disease) (1 source) Encounter for screening for malignant neoplasm of cervix; Translations: [Encounter for screening for malignant neoplasm of cervix] Onset: 08-29-2024 Episodic Results Test Name Value Interpretation Reference Range Facility hCG Titer Quant., Serumon HCG QUANT. 52 mIU/mL High <9 non-preg [facility] Comment on above: Result Comment: Gest ational Age 0.2-1 Week: 5-50 mIU/mL 1-2 Weeks: 50-500 mIU/mL 2-3 Weeks: 100-5000 mIU/mL 3-4 Weeks: 500-10,000 mIU/mL 4-5 Weeks:1000-50,000 mIU/mL 5-6 Weeks: 10,000-100,000 mIU/mL 6-8 Weeks: 15,000-200,000 mIU/mL 2-3 Months:10,000-100,000 mIU/mL Performed By: #### L 700.8000 #### [facility] [address] [place], [place], [id number] PAP IG HPV APTIMA 16/18,45on 08-16-2024 ADEQ Comment Normal . [facility] Comment on above: Order Comment: Speci men Comment: [id number] Specimen Comment: Source.............Cervix Specimen Comment: No. of containers..01 ThinPrep Vial Result Comment: Sati sfactory for evaluation. No endocervical component is identified. Performed By: #### L 7400.0280 #### [facility] [address]. [place], [place], [address] COMM . Normal . [facility] Comment on above: Order Comment: Speci men Comment: [id number] Specimen Comment: Source.............Cervix Specimen Comment: No. of containers..01 ThinPrep Vial Performed By: #### L 7400.0280 #### [facility] [address] [place], [place], [id number] COMMENT Comment Normal . [facility] Comment on above: Order Comment: Speci men Comment: [id number] Specimen Comment: Source.............Cervix Specimen Comment: No. of containers..01 ThinPrep Vial Result Comment: This liquid based ThinPrep(R) pap test was screened with the use of an image guided system. Performed By: #### L 7400.0280 #### [facility] [address] [place], [place], [id number] DIAG Comment Normal . [facility] Comment on above: Order Comment: Speci men Comment: [id number] Specimen Comment: Source.............Cervix Specimen Comment: No. of containers..01 ThinPrep Vial Result Comment: NEGA TIVE FOR INTRAEPITHELIAL LESION OR MALIGNANCY. REACTIVE CELLULAR CHANGES NOTED. Performed By: #### L 7400.0280 #### [facility] [address] [place], [place], [address] HPV APTIMA, HR Negative Normal Negative [facility] Comment on above: Order Comment: Speci men Comment: [id number] Specimen Comment: Source.............Cervix Specimen Comment: No. of containers..01 ThinPrep Vial Result Comment: This nucleic acid amplification test detects fourteen high- risk HPV types (16,18,31,33,35,39,45,51,52,56,58,59,66,68) without differentiation. Performed By: #### L 7400.0280 #### [facility] [address] [place], [place], [address] HPV Angela Rfx Comment Normal . [facility] Comment on above: Order Comment: Speci men Comment: [id number] Specimen Comment: Source.............Cervix Specimen Comment: No. of containers..01 ThinPrep Vial Result Comment: Crit yovany not met, HPV Genotype not performed. Performed at: [facility] [address] [place], [place] [id number] Central Supply Technician: Yan Alexander MD, Phone: [phone] Performed at: - [address] [id number] Central Supply Technician: Loyda Garner MD, Phone: [phone] Performed at: = - [facility] [id number] Central Supply Technician: Loyda Garner MD, Phone: [phone] Performed By: #### L 7400.0280 #### [facility] [address] [place], [place], [id number] PAPSMR Comment Normal . [facility] Comment on above: Order Comment: Speci men Comment: [id number] Specimen Comment: Source.............Cervix Specimen Comment: No. of [...] occur. Performed By: #### L 7400.0280 #### [facility] [address] [place], [place], [address] PERFORM Comment Normal . [facility] Comment on above: Order Comment: Speci men Comment: [id number] Specimen Comment: Source.............Cervix Specimen Comment: No. of containers..01 ThinPrep Vial Result Comment: Rain Mann, Relationship Mgr (ASCP) Performed By: #### L 7400.0280 #### [facility] [address] [place], [place], [address] SIGN Comment Normal . [facility] Comment on above: Order Comment: Speci men Comment: [id number] Specimen Comment: Source.............Cervix Specimen Comment: No. of containers..01 ThinPrep Vial Result Comment: Deepthi Villar MD, Pathologist Performed By: #### L 7400.0280 #### [facility] [address] [place], [place], [address] Joint Cleaning Machine Operator Office Visit Reporton 08-10-2024 Joint Cleaning Machine Operator Office Visit Report [facility] [address], [address] [place] [address] OFFICE VISIT Date of Service: 08/10/24 MR#: [id number] Acct: [id number] Name: FROYLAN CARLOS Robert Rep #: [id number] : 1985 Provider: Dr. 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 Technology Associate Required: No Is patient in pain?: No Allergies No Known Allergies Allergy (Verified 08/10/24 15:01) Medications ???Medication ???Instructions ???Recorded ???Confirmed ???Type NK 08/10/24 08/10/24 History Post menopausal: No Patient : No : [facility] 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 Cannon Delivery Date: 09/21/18 Last Updated by: Keara Salmon MD breech Delivery Date: 05/11/23 Last Updated by: Jackelyn Porras AMA, GBS +, failed TOLAC, failed vacuum HPI Encounter for routine gynecological examination Details: FROLYAN CARLOS is a 38 year old who [...] breasts and (more content not included)... Normal [facility] hCG Titer Quant., Serumon HCG QUANT. 20 mIU/mL High 1-3 [facility] Comment on above: Result Comment: hCG levels with Gestational Age Gestational Age hCG mIU/mL (IU/L) 0.2 - 1 week 5 - 50 1-2 weeks 50 - 500 2-3 weeks 100 - 5000 3-4 weeks 500 - 07632 4-5 weeks 1000 - 51095 5-6 weeks 10083 - 100,000 6-8 weeks 22487 - 200,000 2-3 months 18592 - 100,000 Performed By: #### L 700.8000 #### [facility] [address] [place], [address] Joint Cleaning Machine Operator Office Visit Reporton 01-11-2024 Joint Cleaning Machine Operator Office Visit Report [facility] [address] [place] [address] OFFICE VISIT Date of Service: 01/11/24 MR#: [id number] Acct: [id number] Name: FROYLAN CARLOS Rep #: [id number] : 1985 Provider: Dr. Keara hewitt MD Age/Sex: 38/F Location: [facility] Status: Signed Intake Vital Signs 06/24/23 06:39 01/11/24 07:57 01/11/24 07:58 Height 5 ft 1 in 5 ft 1 in 5 ft 1 in Weight: 116 lb 6 oz BMI 21.9 BP 125/83 H Intake Visit Reasons: possible miscarriage/molar Information Technology Associate Required: No Accompanied by: Significant Other Is patient in pain?: Yes Allergies No Known Allergies Allergy (Verified 01/11/24 07:58) Medications ???Medication ???Instructions ???Recorded ???Confirmed ???Type docosahexaenoic acid 200 mg mg PO 06/20/23 01/11/24 History capsule ( DHA) Is last menstrual period known: Yes Post menopausal: No Patient : Yes : No Current gender identity: female [facility] Medical History 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 Cannon Delivery Date: 09/21/18 Last [...] Psych Appearanc (more content not included)... Normal [facility] hCG Titer Quant., Serumon HCG QUANT. 165 mIU/mL High 1-3 [facility] Comment on above: Order Comment: STAT Result Comment: hCG levels with Gestational Age Gestational Age hCG mIU/mL (IU/L) 0.2 - 1 week 5 - 50 1-2 weeks 50 - 500 2-3 weeks 100 - 5000 3-4 weeks 500 - 04516 4-5 weeks 1000 - 26405 5-6 weeks 33039 - 100,000 6-8 weeks 74044 - 200,000 2-3 months 16471 - 100,000 Performed By: #### L 700.8000 #### [facility] [address] [place], [address] Transvaginal w/Preg USon Transvaginal w/Preg US [facility] [address] [place], [place] [address] Transvaginal w/Preg US MR#: [id number] Acct: [id number] Name: FROYLAN CARLOS Rep #: [id number] : 1985 F 38 From: [place] MD PCP: Care Physician,No Primary Status: [facility] Study: Transvaginal w/Preg US Date of Exam: 01/09/24 Exam# [id number] Ordering Dr: Candice Snow CNM [id number] STUDY: FIRST TRIMESTER OBSTETRICAL ULTRASOUND REASON FOR [...] CC: DIVYA Snow; No Primary Care Physician Lens Finisher: Signed Normal [facility] Basophil percentageOrdered B y: Judy Morgan on 05-12-2023 WBC (Bld) [#/Vol] 16.4 10*3/uL 4.4-11.0 [facility] Blood erythrocytes count (nu mber/volume)Ordered By: Judy Morgan on 05-12-2023 RBC (Bld) [#/Vol] 3.26 10*6/uL 4.2-5.4 [facility] Blood hemoglobin measurement (mass/volume)Ordered By: Judy Morgan on 05-12-2023 Hemoglobin (Bld) [Mass/Vol] 10.0 g/dL 12.0-15.0 [facility] Blood platelet mean volumeOr dered By: Judy Morgan on 05-12-2023 Platelet mean volume (Bld) [Entitic vol] 10.3 fL 6.2-12.0 [facility] Determination of erythrocyte mean corpuscular volume (MCV)Ordered By: Judy Morgan on 05-12-2023 MCV (RBC) [Entitic vol] 91.4 fL 81-99 [facility] Hematocrit Auto (Bld) [Volum e fraction]Ordered By: Judy Morgan on 05-12-2023 Hematocrit (Bld) [Volume fraction] 29.8 % 37-47 [facility] - Hematology and Cell countsOrdered By: Judy Morgan on 05-12-2023 Erythrocyte distribution width (RBC) [Entitic vol] 47.6 fL 35.1-43.9 [facility] Erythrocyte distribution width (RBC) [Ratio] 14.2 % 11.6-14.6 [facility] MCH (RBC) [Entitic mass] 30.7 pg 27.0-32.0 [facility] MCHC Auto (RBC) [Mass/Vol]Or dered By: Judy Morgan on 05-12-2023 MCHC (RBC) [Mass/Vol] 33.6 g/dL 32-36 [facility] Platelets bldOrdered By: Carey Morgan on 05-12-2023 Platelets (Bld) [#/Vol] 169 10*3/uL 150-450 [facility] Absolute lymphocyte countOrd ered By: Judy Morgan on 05-11-2023 Lymphocytes Auto (Unsp spec) [#/Vol] 0.81 10*3/uL 0.83-4.51 [facility] Basophil percentageOrdered B y: Judy Morgan on 05-11-2023 Bilirubin [Mass/Vol] 0.20 mg/dL 0.20-1.00 [facility] Comment on above: For patients on eltr ombopag therapy, use of Dimension Wisdom TBIL is not recommended. Chloride [Moles/Vol] 105 mmol/L 98-107 [facility] Glucose [Mass/Vol] 188 mg/dL 74-106 [facility] Comment on above: Fasting Glucose resu lt greater than or equal to 126 mg/dL suggests DIABETES MELLITUS per A.D.A. criteria. Potassium [Moles/Vol] 3.5 mmol/L 3.5-5.1 [facility] Protein [Mass/Vol] 5.3 g/dL 6.4-8.2 [facility] Sodium [Moles/Vol] 135 mmol/L 136-145 [facility] Basophils/100 WBC (Bld) 0.2 % 0-1 [facility] Eosinophils/100 WBC (Bld) 0.1 % 0-5 [facility] Neutrophils (Bld) [#/Vol] 10.6 10*3/uL 2.0-7.7 [facility] Neutrophils/100 WBC (Bld) 86.5 % 47-70 [facility] Blood lymphocytes/100 leukoc ytesOrdered By: Judy Morgan on 05-11-2023 Lymphocytes/100 WBC (Bld) 6.6 % 19-41 [facility] Blood monocytes/100 leukocyt esOrdered By: Judy Morgan on 05-11-2023 Monocytes/100 WBC (Bld) 5.7 % 0-10 [facility] - Chemistry and C hemistry - challengeOrdered By: Judy Morgan on 05-11-2023 ALP [Catalytic activity/Vol] 101 U/L 45-117 [facility] ALT [Catalytic activity/Vol] 10 U/L 13-56 [facility] CO2 [Moles/Vol] 20.0 mmol/L 21.0-32.0 [facility] Globulin (S) [Mass/Vol] 3.2 g/dL 2.2-4.2 [facility] Urea nitrogen/Creatinine [Mass ratio] 9.9 mg/mg 10-20 [facility] - Hematology and Cell countsOrdered By: Judy Morgan on 05-11-2023 Immature granulocytes/100 WBC (Bld) 0.900 % 0.0-0.9 [facility] Comment on above: IG% - Immature Granu locytes (promyelocytes, myelocytes and metamyelocytes) > 1% indicates that a LEFT SHIFT is Present. Nucleated RBC/100 WBC (Bld) [Ratio] 0 % 0-5 [facility] No Panel InformationOrdered By: Judy Morgan on 05-11-2023 Estimated Creatinine Clearance Calc 64.49 ml/min [facility] Estimated GFR (MDRD) Amer 89 mL/min >60 [facility] Comment on above: GFR Calc Estimated GFR (MDRD) Non-Af Amer 74 mL/min >60 [facility] Comment on above: Non- GFR Calc Serum Treponema species anti body detectionOrdered By: Judy Morgan on 05-11-2023 Treponema sp Ab Ql (S) Non-Reactive [facility] Serum or plasma albumin michelle urement (mass/volume)Ordered By: Judy Morgan on 05-11-2023 Albumin [Mass/Vol] 2.1 g/dL 3.2-5.0 [facility] Serum or plasma albumin/glob ulin mass ratioOrdered By: Judy Morgan on 05-11-2023 Albumin/Globulin [Mass ratio] 0.7 {ratio} 0.9-2.4 [facility] Serum or plasma calcium michelle urement (mass/volume)Ordered By: Judy Morgan on 05-11-2023 Calcium [Mass/Vol] 8.0 mg/dL 8.5-10.1 [facility] Serum or plasma creatinine m easurement (mass/volume)Ordered By: Judy Morgan on 05-11-2023 Creatinine [Mass/Vol] 0.91 mg/dL 0.55-1.02 [facility] Comment on above: The validity of the calculated GFR & GFRAA in patients over 70 years has not been determined. Clinical correlation is essential. Serum or plasma urea nitroge n measurement (mass/volume)Ordered By: Judy Morgan on 05-11-2023 Urea nitrogen [Mass/Vol] 9 mg/dL 7-18 [facility] Thin prep Papanicolaou smear with manual screeningOrdered By: Judy Morgan on 05-11-2023 Thin prep Papanicolaou smear with manual screening 28 U/L 15-37 [facility] Thin prep Papanicolaou smear with manual screening 10 5-15 [facility] - Chemistry and C hemistry - challengeon 05-04-2023 Glucose Ql (U) Negative [facility] - Urinalysison Protein Ql (U) Negative [facility] - Chemistry and C hemistry - challengeon 04-27-2023 Glucose Ql (U) Negative [facility] - Urinalysison Protein Ql (U) Negative [facility] - Chemistry and C hemistry - challengeon 04-20-2023 Glucose Ql (U) Negative [facility] - Urinalysison Protein Ql (U) Negative [facility] No Panel InformationOrdered By: Judy Morgan on 04-20-2023 Group B Streptococcus Culture Streptococcus agalactiae (B) [facility] - Chemistry and C hemistry - challengeon 04-13-2023 Glucose Ql (U) Negative [facility] - Urinalysison Protein Ql (U) Negative [facility] - Chemistry and C hemistry - challengeon 04-07-2023 Glucose Ql (U) Negative [facility] - Urinalysison Protein Ql (U) Negative [facility] - Chemistry and C hemistry - challengeon 03-23-2023 Glucose Ql (U) Negative [facility] - Urinalysison Protein Ql (U) Negative [facility] - Chemistry and C hemistry - challengeon 03-09-2023 Glucose Ql (U) Negative [facility] - Urinalysison Protein Ql (U) Negative [facility] Absolute lymphocyte countOrd ered By: Judy Morgan on 02-10-2023 Lymphocytes Auto (Unsp spec) [#/Vol] 1.60 10*3/uL 0.83-4.51 [facility] Basophil percentageOrdered B y: Judy Morgan on 02-10-2023 Basophils/100 WBC (Bld) 0.2 % 0-1 [facility] Eosinophils/100 WBC (Bld) 0.7 % 0-5 [facility] Neutrophils (Bld) [#/Vol] 6.5 10*3/uL 2.0-7.7 [facility] Neutrophils/100 WBC (Bld) 73.1 % 47-70 [facility] WBC (Bld) [#/Vol] 8.9 10*3/uL 4.4-11.0 [facility] Blood erythrocytes count (nu mber/volume)Ordered By: Judy Morgan on 02-10-2023 RBC (Bld) [#/Vol] 3.83 10*6/uL 4.2-5.4 [facility] Blood hemoglobin measurement (mass/volume)Ordered By: Judy Morgan on 02-10-2023 Hemoglobin (Bld) [Mass/Vol] 11.6 g/dL 12.0-15.0 [facility] Blood lymphocytes/100 leukoc ytesOrdered By: Judy Morgan on 02-10-2023 Lymphocytes/100 WBC (Bld) 17.9 % 19-41 [facility] Blood monocytes/100 leukocyt esOrdered By: Judy Morgan on 02-10-2023 Monocytes/100 WBC (Bld) 7.5 % 0-10 [facility] Blood platelet mean volumeOr dered By: Judy Morgan on 02-10-2023 Platelet mean volume (Bld) [Entitic vol] 10.6 fL 6.2-12.0 [facility] Determination of erythrocyte mean corpuscular volume (MCV)Ordered By: Judy Morgan on 02-10-2023 MCV (RBC) [Entitic vol] 93.5 fL 81-99 [facility] Gestational diabetes screen 1-hour screen with 50g oral glucose loadOrdered By: Judy Morgan on 02-10-2023 Glucose 1 Hr post 50 g glucose PO [Mass/Vol] 103 mg/dL 70-140 [facility] HIV 1 and HIV-2 antibody ass ay with HIV-1 p24 antigen detectionOrdered By: Judy Morgan on 02-10-2023 HIV 1+2 Ab+HIV1 p24 Ag IA Ql Non-Reactive Nonreactive [facility] Hematocrit Auto (Bld) [Volum e fraction]Ordered By: Judy Morgan on 02-10-2023 Hematocrit (Bld) [Volume fraction] 35.8 % 37-47 [facility] - Hematology and Cell countsOrdered By: Judy Morgan on 02-10-2023 Erythrocyte distribution width (RBC) [Entitic vol] 49.0 fL 35.1-43.9 [facility] Erythrocyte distribution width (RBC) [Ratio] 14.3 % 11.6-14.6 [facility] Immature granulocytes/100 WBC (Bld) 0.600 % 0.0-0.9 [facility] Comment on above: IG% - Immature Granu locytes (promyelocytes, myelocytes and metamyelocytes) > 1% indicates that a LEFT SHIFT is Present. MCH (RBC) [Entitic mass] 30.3 pg 27.0-32.0 [facility] Nucleated RBC/100 WBC (Bld) [Ratio] 0 % 0-5 [facility] MCHC Auto (RBC) [Mass/Vol]Or dered By: Judy Morgan on 02-10-2023 MCHC (RBC) [Mass/Vol] 32.4 g/dL 32-36 [facility] Platelets bldOrdered By: Carey Morgan on 02-10-2023 Platelets (Bld) [#/Vol] 266 10*3/uL 150-450 [facility] Serum Treponema species anti body detectionOrdered By: Judy Morgan on 02-10-2023 Treponema sp Ab Ql (S) Non-Reactive [facility] - Chemistry and C hemistry - challengeon 01-13-2023 Glucose Ql (U) Negative [facility] - Urinalysison Protein Ql (U) Negative [facility] - Chemistry and C hemistry - challengeon 12-13-2022 Glucose Ql (U) Negative [facility] - Urinalysison Protein Ql (U) Negative [facility] - Chemistry and C hemistry - challengeon 11-18-2022 Glucose Ql (U) Negative [facility] - Urinalysison Protein Ql (U) Negative [facility] - Chemistry and C hemistry - challengeon 10-19-2022 Glucose Ql (U) Negative [facility] - Urinalysison Protein Ql (U) Negative [facility] Culture, urineOrdered By: Dr Zana Salmon on 09-29-2022 Bacteria identified Cx Nom (U) Positive [facility] - Chemistry and C hemistry - challengeon 09-27-2022 Bilirubin Ql (U) Negative [facility] Glucose Ql (U) Negative [facility] Ketones Ql (U) Negative [facility] pH (U) 5.0 [pH] [facility] Specific gravity (U) [Rel density] 1.010 [facility] Urobilinogen (U) [Mass/Vol] 0.4943206 mg/dL [facility] - Hematology and Cell countson 09-27-2022 Hemoglobin Ql (U) Negative [facility] - Specimen inform ationon 09-27-2022 Clarity (U) Cloudy [facility] Color (U) Yellow [facility] - Urinalysison Nitrite Ql (U) Negative [facility] Protein Ql (U) Negative [facility] No Panel Informationon 09-27 Urine Leukocytes Negatve [facility] Culture, urineOrdered By: Demetris Snow on 09-17-2022 Bacteria identified Cx Nom (U) Culture exhibits no growth. [facility] Serum or plasma choriogonado tropin detectionOrdered By: Candice Snow on 09-16-2022 HCG ( test) [place]l [address] mIU/mL <4 [facility] Comment on above: hCG levels with Gest ational AgeGestational Age hCG mIU/mL (IU/L)0.2 - 1 week 5 - 501-2 weeks 50 - 5002-3 weeks 100 - 55876-3 weeks 500 - 387216-8 weeks 1000 - 744582-4 weeks 34029 - 100,0006-8 weeks 42747 - 200,0002-3 months 08924 - 100,000 Absolute lymphocyte countOrd ered By: Candice Snow on 09-14-2022 Lymphocytes Auto (Unsp spec) [#/Vol] 1.76 10*3/uL 0.83-4.51 [facility] Basophil percentageOrdered B y: Candice Snow on 09-14-2022 Basophils/100 WBC (Bld) 0.2 % 0-1 [facility] Eosinophils/100 WBC (Bld) 0.5 % 0-5 [facility] Neutrophils (Bld) [#/Vol] 6.9 10*3/uL 2.0-7.7 [facility] Neutrophils/100 WBC (Bld) 73.6 % 47-70 [facility] WBC (Bld) [#/Vol] 9.4 10*3/uL 4.4-11.0 [facility] Blood erythrocytes count (nu mber/volume)Ordered By: Candice Snow on 09-14-2022 RBC (Bld) [#/Vol] 4.65 10*6/[facility]L [facility] Blood hemoglobin measurement (mass/volume)Ordered By: Candice Snow on 09-14-2022 Hemoglobin (Bld) [Mass/Vol] 13.7 g/dL 12.0-15.0 [facility] Blood lymphocytes/100 leukoc ytesOrdered By: Candice Snow on 09-14-2022 Lymphocytes/100 WBC (Bld) 18.7 % 19-41 [facility] Blood monocytes/100 leukocyt esOrdered By: Candice Snow on 09-14-2022 Monocytes/100 WBC (Bld) 6.6 % 0-10 [facility] Blood platelet mean volumeOr dered By: Candice Snow on 09-14-2022 Platelet mean volume (Bld) [Entitic vol] 10.9 fL 6.2-12.0 [facility] Chlamydia trachomatis rRNA d etection by probe and target amplification methodOrdered By: Candice Snow on 09-14-2022 C. trachomatis rRNA RENZO+probe Ql (Unsp spec) Negative Negative [facility] Determination of erythrocyte mean corpuscular volume (MCV)Ordered By: Candice Snow on 09-14-2022 MCV (RBC) [Entitic vol] 88.8 fL 81-99 [facility] HIV 1 and HIV-2 antibody ass ay with HIV-1 p24 antigen detectionOrdered By: Candice Snow on 09-14-2022 HIV 1+2 Ab+HIV1 p24 Ag IA Ql Non-Reactive Nonreactive [facility] Hematocrit Auto (Bld) [Volum e fraction]Ordered By: Candice Snow on 09-14-2022 Hematocrit (Bld) [Volume fraction] 41.3 % 37-47 [facility] - Hematology and Cell countsOrdered By: Candice Snow on 09-14-2022 Erythrocyte distribution width (RBC) [Entitic vol] 44.2 fL 35.1-43.9 [facility] Erythrocyte distribution width (RBC) [Ratio] 13.6 % 11.6-14.6 [facility] Immature granulocytes/100 WBC (Bld) 0.400 % 0.0-0.9 [facility] Comment on above: IG% - Immature Granu locytes (promyelocytes, myelocytes and metamyelocytes) > 1% indicates that a LEFT SHIFT is Present. MCH (RBC) [Entitic mass] 29.5 pg 27.0-32.0 [facility] Nucleated RBC/100 WBC (Bld) [Ratio] 0 % 0-5 [facility] - Microbiology an d Antimicrobial susceptibilityOrdered By: Candice Snow on 09-14-2022 N. gonorrhoeae DNA RENZO+probe Ql (Unsp spec) Negative Negative [facility] Comment on above: Performed at: =[address] [id number] Director: Loyda Garner MD, Phone: [phone] [facility] Auto (RBC) [Mass/Vol]Or dered By: Candice Snow on 09-14-2022 MCHC (RBC) [Mass/Vol] 33.2 g/dL 32-36 [facility] No Panel InformationOrdered By: Candice Snow on 09-14-2022 Hepatitis B Surface Antigen Non-Reactive Nonreactive [facility] Hepatitis C Antibody Non-Reactive Nonreactive [facility] Comment on above: Non Reactive: < 0.8 Equivocal: >/= 0.8 to < 1.0 Reactive: >/= 1.0The CDC recommends that a reactive/equivocal HCV antibody result be followed up by the HCV Nucleic Acid Amplificationtest (335194) Rubella IgG Antibody Reactive Nonreactive [facility] Comment on above: Antibody Results Int erpretation of Immune Status Non Reactive Presumed Non-Immune Equivocal Equivocal Reactive Presumed Immune Platelets bldOrdered By: Ric Snow on 09-14-2022 Platelets (Bld) [#/Vol] 284 10*3/uL 150-450 [facility] Serum Treponema species anti body detectionOrdered By: Candice Snow on 09-14-2022 Treponema sp Ab Ql (S) Non-Reactive [facility] Serum or plasma choriogonado tropin detectionOrdered By: Candice Snow on 09-14-2022 HCG ( test) Ql [address]190 mIU/mL <4 [facility] Comment on above: hCG levels with Gest ational AgeGestational Age hCG mIU/mL (IU/L)0.2 - 1 week 5 - 501-2 weeks 50 - 5002-3 weeks 100 - 96101-0 weeks 500 - 848037-9 weeks 1000 - 711306-0 weeks 57308 - 100,0006-8 weeks 25748 - 200,0002-3 months 47080 - 100,000 .Auto Diffon 09-22-2018 Ammonia mass conc (P) 0.90 10 3/mcL Normal 0.15-1.00 [facility] ([place]) Comment on above: Performed By: #### L H, PROL, TSH, FSH, DHEAS #### [address] [address] Basophils #/vol (Bld) 0.00 10 3/mcL Normal 0.00-0.19 [facility] ([place]) Comment on above: Performed By: #### L H, PROL, TSH, FSH, DHEAS #### [address] [address] Basophils/100 WBC (Bld) 0.1 % Normal 0.0-2.5 [facility] ([place]) Comment on above: Performed By: #### L H, PROL, TSH, FSH, DHEAS #### [address] [address] Eosinophils #/vol (Bld) 0.10 10 3/mcL Normal 0.00-0.40 [facility] ([place]) Comment on above: Performed By: #### L H, PROL, TSH, FSH, DHEAS #### [address] [address] Eosinophils/100 WBC (Bld) 0.4 % Normal 0.0-7.0 [facility] ([place]) Comment on above: Performed By: #### L H, PROL, TSH, FSH, DHEAS #### [address] [address] Lymphocytes #/vol (Bld) 2.10 10 3/mcL Normal 0.77-3.85 [facility] ([place]) Comment on above: Performed By: #### L H, PROL, TSH, FSH, DHEAS #### [address] [address] Lymphocytes/100 WBC (Bld) 12.3 % Normal 10.0-50.0 [facility] ([place]) Comment on above: Performed By: #### L H, PROL, TSH, FSH, DHEAS #### [address] [address] Monocytes/100 WBC (Bld) 5.1 % Normal 1.7-13.0 [facility] ([place]) Comment on above: Performed By: #### L H, PROL, TSH, FSH, DHEAS #### [place] [address] Neutrophils/100 WBC (Bld) 82.1 % High 37.0-80.0 [facility] ([place]) Comment on above: Performed By: #### L H, PROL, TSH, FSH, DHEAS #### [place] [address] .NEUABSon 09-22-2018 Neutrophils #/vol (Bld) 13.80 10 3/mcL High 2.85-6.1 6 [facility] ([place]) Comment on above: Performed By: #### L H, PROL, TSH, FSH, DHEAS #### [place] [address] CBCon 09-22-2018 Erythrocyte distribution width Ratio (RBC) 14.1 % Normal 11.5-14.5 [facility] ([place]) Comment on above: Performed By: #### L H, PROL, TSH, FSH, DHEAS #### [place] [address] Hematocrit Volume Fraction (Bld) 34.8 % Low 37.0-47.0 [facility] ([place]) Comment on above: Performed By: #### L H, PROL, TSH, FSH, DHEAS #### [place] [address] Hemoglobin mass conc (Bld) 11.9 G/dL Low 12.0-16.0 [facility] ([place]) Comment on above: Performed By: #### L H, PROL, TSH, FSH, DHEAS #### [place] [address] MCH Entitic mass (RBC) 31.7 pg High 27.0-31.2 [facility] ([place]) Comment on above: Performed By: #### L H, PROL, TSH, FSH, DHEAS #### [place] [address] MCHC mass conc (RBC) 34.3 G/dL Normal 33.0-37.0 [facility] ([place]) Comment on above: Performed By: #### L H, PROL, TSH, FSH, DHEAS #### [place] [address] MCV Entitic volume (RBC) 92.3 fL Normal 80.0-94.0 [facility] ([place]) Comment on above: Performed By: #### L H, PROL, TSH, FSH, DHEAS #### [place] [address] Platelet mean volume Entitic volume (Bld) 10.1 fL Normal 7.4-10.4 [facility] ([place] Comment on above: Performed By: #### L H, PROL, TSH, FSH, DHEAS #### [place] [address] Platelets #/vol (Bld) 150 10 3/mcL Normal 130-400 [facility] ([place]) Comment on above: Performed By: #### L H, PROL, TSH, FSH, DHEAS #### [place] [address] RBC #/vol (Bld) 3.77 10 6/mcL Low 4.20-5.40 [facility] ([place]) Comment on above: Performed By: #### L H, PROL, TSH, FSH, DHEAS #### [place] [address] WBC #/vol (Bld) 16.80 10 3/mcL High 4.60-10.80 [facility] ([place]) Comment on above: Performed By: #### L H, PROL, TSH, FSH, DHEAS #### [place] [address] ABO/Rh Retype Gelon 09-21-19 19 ABO/Rh Retype Gel Positive [facility] ([place] Comment on above: Order Comment: Order ed by Discern Performed By: #### L H, PROL, TSH, FSH, DHEAS #### [place] [address] Gel ABOon 09-20-2018 ABO/Rh Interp Positive [facility] ([place] Comment on above: Performed By: #### L H, PROL, TSH, FSH, DHEAS #### [address] [address] Gel ABSon 09-20-2018 Antibody Screen Gel Negative Normal [facility] ([place] Comment on above: Performed By: #### L H, PROL, TSH, FSH, DHEAS #### [address] [address] .Auto Diffon 09-19-2018 Ammonia mass conc (P) 0.80 10 3/mcL Normal 0.15-1.00 [facility] ([place]) Comment on above: Performed By: #### C BC, ADIFF, ANEU, ABOG, ANSG #### [address] [address] Basophils #/vol (Bld) 0.10 10 3/mcL Normal 0.00-0.19 [facility] ([place] Comment on above: Performed By: #### C BC, ADIFF, ANEU, ABOG, ANSG #### [address] [address] Basophils/100 WBC (Bld) 0.8 % Normal 0.0-2.5 [facility] ([place]) Comment on above: Performed By: #### C BC, ADIFF, ANEU, ABOG, ANSG #### [address] [address] Eosinophils #/vol (Bld) 0.10 10 3/mcL Normal 0.00-0.40 [facility] ([place] Comment on above: Performed By: #### C BC, ADIFF, ANEU, ABOG, ANSG #### [address] [address] Eosinophils/100 WBC (Bld) 0.9 % Normal 0.0-7.0 [facility] ([place] Comment on above: Performed By: #### C BC, ADIFF, ANEU, ABOG, ANSG #### [address] [address] Lymphocytes #/vol (Bld) 2.70 10 3/mcL Normal 0.77-3.85 [facility] ([place] Comment on above: Performed By: #### C BC, ADIFF, ANEU, ABOG, ANSG #### [address] [address] Lymphocytes/100 WBC (Bld) 25.0 % Normal 10.0-50.0 [facility] ([place]) Comment on above: Performed By: #### C BC, ADIFF, ANEU, ABOG, ANSG #### [address] [address] Monocytes/100 WBC (Bld) 7.2 % Normal 1.7-13.0 [facility] ([place]) Comment on above: Performed By: #### C BC, ADIFF, ANEU, ABOG, ANSG #### [address] [address] Neutrophils/100 WBC (Bld) 66.1 % Normal 37.0-80.0 [facility] ([place]) Comment on above: Performed By: #### C BC, ADIFF, ANEU, ABOG, ANSG #### [address] [address] .NEUABSon 09-19-2018 Neutrophils #/vol (Bld) 7.10 10 3/mcL High 2.85-6.16 [facility] ([place]) Comment on above: Performed By: #### L H, PROL, TSH, FSH, DHEAS #### [address] [address] CBCon 09-19-2018 Erythrocyte distribution width Ratio (RBC) 13.6 % Normal 11.5-14.5 [facility] ([place] Comment on above: Performed By: #### C BC, ADIFF, ANEU, ABOG, ANSG #### [address] [address] Hematocrit Volume Fraction (Bld) 39.0 % Normal 37.0-47.0 [facility] ([place]) Comment on above: Performed By: #### C BC, ADIFF, ANEU, ABOG, ANSG #### [address] [address] Hemoglobin mass conc (Bld) 13.5 G/dL Normal 12.0-16.0 [facility] ([place] Comment on above: Performed By: #### C BC, ADIFF, ANEU, ABOG, ANSG #### [address] [address] MCH Entitic mass (RBC) 31.7 pg High 27.0-31.2 [facility] ([place]) Comment on above: Performed By: #### C BC, ADIFF, ANEU, ABOG, ANSG #### [address] [address] MCHC mass conc (RBC) 34.6 G/dL Normal 33.0-37.0 [facility] ([place]) Comment on above: Performed By: #### C BC, ADIFF, ANEU, ABOG, ANSG #### [address] [address] MCV Entitic volume (RBC) 91.4 fL Normal 80.0-94.0 [facility] ([place]) Comment on above: Performed By: #### C BC, ADIFF, ANEU, ABOG, ANSG #### [address] [address] Platelet mean volume Entitic volume (Bld) 10.6 fL High 7.4-10.4 [facility] ([place]) Comment on above: Performed By: #### C BC, ADIFF, ANEU, ABOG, ANSG #### [address] [address] Platelets #/vol (Bld) 164 10 3/mcL Normal 130-400 [facility] ([place]) Comment on above: Performed By: #### C BC, ADIFF, ANEU, ABOG, ANSG #### [address] [address] RBC #/vol (Bld) 4.26 10 6/mcL Normal 4.20-5.40 [facility] ([place]) Comment on above: Performed By: #### C BC, ADIFF, ANEU, ABOG, ANSG #### [address] [address] WBC #/vol (Bld) 10.70 10 3/mcL Normal 4.60-10.80 [facility] ([place]) Comment on above: Performed By: #### C BC, ADIFF, ANEU, ABOG, ANSG #### Brinda [address] [address] CURon 05-21-2018 CUR . MICRO - Microbiology [...] Locations *1: This test was performed at: [address], [address] [place] [address] ([place]) Comment on above: Performed By: #### C UR #### [place] [id number] UAon 05-20-2018 Color Nom (U) Yellow Normal [facility] ([place]) Comment on above: Performed By: #### U A, UAMIC #### [address] [address] Glucose mass conc (U) Negative Normal Negative [facility] ([place]) Comment on above: Performed By: #### U A, UAMIC #### [address] [address] Ketones Ql (U) Negative Normal Neg-Trace [facility] ([place]) Comment on above: Performed By: #### U A, UAMIC #### [place] [address] UA Appear Clear Normal Clear [facility] ([place] Comment on above: Performed By: #### U A, UAMIC #### [place] [address] UA Blood Negative Normal Neg-Trace [facility] ([place] Comment on above: Performed By: #### U A, UAMIC #### [place] [address] UA Leuk Est Small Negative [facility] ([place] Comment on above: Performed By: #### U A, UAMIC #### [place] [address] UA Nitrite Negative Normal Negative [facility] ([place] Comment on above: Performed By: #### U A, UAMIC #### [place] [address] UA pH 8.0 Normal 5.0 - 8.0 [facility] ([place]) Comment on above: Performed By: #### U A, UAMIC #### [place] [address] UA Protein Negative Normal Negative [facility] ([place] Comment on above: Performed By: #### U A, UAMIC #### [place] [address] UA Spec Grav 1.010 Normal 1.006-1.029 [facility] ([place]) Comment on above: Performed By: #### U A, UAMIC #### [place] [address] UA Specimen Type Clean Catch Normal [facility] ([place] Comment on above: Performed By: #### U A, UAMIC #### [place] [address] UA Urobilinogen 0.2 E.U./dL Normal 0.2-1.0 [facility] ([place] Comment on above: Performed By: #### U A, UAMIC #### [place] [address] Urobilinogen Qn (U) Negative Normal Neg-Trace [facility] ([place]) Comment on above: Performed By: #### U A, UAMIC #### [place] [address] UAMICon 05-20-2018 RBC #/vol (U) Rare Normal 0-2 [facility] ([place] Comment on above: Performed By: #### U A, UAMIC #### [place] [address] UA Amorphus Trace Normal [facility] ([place] Comment on above: Performed By: #### U A, UAMIC #### [place] [address] UA Bacteria Trace Negative [facility] ([place] Comment on above: Performed By: #### U A, UAMIC #### [place] [address] UA Squam Epithelial 0-2 Normal 0-20 [facility] ([place] Comment on above: Performed By: #### U A, UAMIC #### [place] [address] UA WBC 3-5 Normal 0-5 [facility] ([place] Comment on above: Performed By: #### U A, UAMIC #### [place] [address] DHEASon 12-28-2017 DHEA-SO4 307 mcg/dL Normal 35-430 [facility] ([place] Comment on above: Performed By: #### L H, PROL, TSH, FSH, DHEAS #### [place] [address] FSHon 12-21-2017 FSH 5.3 mIU/mL Normal [facility] ([place]) Comment on above: Result Comment: Adul t Female FSH Reference Ranges (06/03/99): Follicular phase 2.5 - 10.2 mIU/mL Midcycle phase 3.4 - 33.4 mIU/mL Luteal phase 1.5 - 9.1 mIU/mL Post menopausal 23.0 -116.3 mIU/mL Adult Male: 1.4 - 18.1 mIU/mL Performed By: #### L H, PROL, TSH, FSH, DHEAS #### [place] [address] LHon 12-21-2017 LH 6.2 mIU/mL Normal [facility] ([place]) Comment on above: Result Comment: Adul t Female LH Reference Ranges (07/16/11): Follicular phase 1.7 - 15.0 mIU/mL Midcycle phase 21.9 - 56.6 mIU/mL Luteal phase 0.6 - 16.3 mIU/mL Post menopausal 14.2 - 52.3 mIU/mL Performed By: #### L H, PROL, TSH, FSH, DHEAS #### [place] [address] PROLon 12-21-2017 Protein mass conc 12.4 ng/mL Normal 2.0-30.0 [facility] ([place]) Comment on above: Performed By: #### L H, PROL, TSH, FSH, DHEAS #### [place] [address] TSHon 12-21-2017 Thyrotropin Qn 1.600 mcIU/mL Normal 0.360-3.740 [facility] ([place]) Comment on above: Result Comment: Meera perea note ? as of 01/22/17 new pediatric reference intervals were added for this test. Performed By: #### L H, PROL, TSH, FSH, DHEAS #### [place] [address] Vital Signs Date Time Vital Sign Value Performing Clinician Lenard schuster 05-13-2023 12:45-0400 Respiratory rate 14 /min No Primary Care Physician [facility] 05-13-2023 08:18-0400 Body temperature 97.4 [degF] No Primary Care Physician [facility] 05-13-2023 08:18-0400 Diastolic blood pressure 59 mm[Hg] No Primary Care Physician [facility] 05-13-2023 08:18-0400 Heart rate 79 /min No Primary Care Physician [facility] 05-13-2023 08:18-0400 SaO2% (BldA) [Mass fraction] 97 % No Primary Care Physician [facility] 05-13-2023 08:18-0400 Systolic blood pressure 102 mm[Hg] No Primary Care Physician [facility] 05-11-2023 07:40-0400 Body height 154.94 cm No Primary Care Physician [facility] 05-11-2023 07:40-0400 Body mass index (BMI) [Ratio] 25.3 kg/m2 No Primary Care Physician [facility] 05-11-2023 07:40-0400 Body weight 60.78 kg No Primary Care Physician [facility] 05-10-2023 10:17-0400 Body mass index (BMI) [Ratio] 24.3 kg/m2 No Primary Care Physician [facility] 05-10-2023 10:17-0400 Body weight 60.49 kg No Primary Care Physician [facility] 05-10-2023 10:17-0400 Diastolic blood pressure 78 mm[Hg] No Primary Care Physician [facility] 05-10-2023 10:17-0400 Systolic blood pressure 112 mm[Hg] No Primary Care Physician [facility] 05-04-2023 10:49-0400 Body mass index (BMI) [Ratio] 24.2 kg/m2 No Primary Care Physician [facility] 05-04-2023 10:49-0400 Body weight 60.04 kg No Primary Care Physician [facility] 05-04-2023 10:49-0400 Diastolic blood pressure 79 mm[Hg] No Primary Care Physician [facility] 05-04-2023 10:49-0400 Systolic blood pressure 118 mm[Hg] No Primary Care Physician [facility] 04-27-2023 11:05-0400 Body mass index (BMI) [Ratio] 24.5 kg/m2 No Primary Care Physician [facility] 04-27-2023 11:05-0400 Body weight 60.83 kg No Primary Care Physician [facility] 04-27-2023 11:05-0400 Diastolic blood pressure 77 mm[Hg] No Primary Care Physician [facility] 04-27-2023 11:05-0400 Systolic blood pressure 115 mm[Hg] No Primary Care Physician [facility] 04-20-2023 10:37-0400 Body height 157.48 cm No Primary Care Physician [facility] 04-20-2023 10:37-0400 Body mass index (BMI) [Ratio] 24.3 kg/m2 No Primary Care Physician [facility] 04-20-2023 10:37-0400 Body weight 60.38 kg No Primary Care Physician [facility] 04-20-2023 10:37-0400 Diastolic blood pressure 82 mm[Hg] No Primary Care Physician [facility] 04-20-2023 10:37-0400 Systolic blood pressure 120 mm[Hg] No Primary Care Physician [facility] 04-13-2023 11:00-0400 Body mass index (BMI) [Ratio] 23.9 kg/m2 No Primary Care Physician [facility] 04-13-2023 11:00-0400 Body weight 59.42 kg No Primary Care Physician [facility] 04-13-2023 11:00-0400 Diastolic blood pressure 72 mm[Hg] No Primary Care Physician [facility] 04-13-2023 11:00-0400 Systolic blood pressure 114 mm[Hg] No Primary Care Physician [facility] 04-07-2023 11:15-0400 Body mass index (BMI) [Ratio] 24 kg/m2 No Primary Care Physician [facility] 04-07-2023 11:15-0400 Body weight 59.59 kg No Primary Care Physician [facility] 04-07-2023 11:15-0400 Diastolic blood pressure 74 mm[Hg] No Primary Care Physician [facility] 04-07-2023 11:15-0400 Systolic blood pressure 110 mm[Hg] No Primary Care Physician [facility] 03-23-2023 11:41-0400 Body mass index (BMI) [Ratio] 23.8 kg/m2 No Primary Care Physician [facility] 03-23-2023 11:41-0400 Body weight 59.13 kg No Primary Care Physician [facility] 03-23-2023 11:41-0400 Diastolic blood pressure 79 mm[Hg] No Primary Care Physician [facility] 03-23-2023 11:41-0400 Systolic blood pressure 118 mm[Hg] No Primary Care Physician [facility] 03-09-2023 11:38-0400 Body mass index (BMI) [Ratio] 23.6 kg/m2 No Primary Care Physician [facility] 03-09-2023 11:38-0400 Body weight 58.62 kg No Primary Care Physician [facility] 03-09-2023 11:38-0400 Diastolic blood pressure 77 mm[Hg] No Primary Care Physician [facility] 03-09-2023 11:38-0400 Systolic blood pressure 117 mm[Hg] No Primary Care Physician [facility] 02-25-2023 09:16-0400 Body mass index (BMI) [Ratio] 23.3 kg/m2 No Primary Care Physician [facility] 02-25-2023 09:16-0400 Body weight 57.83 kg No Primary Care Physician [facility] 02-25-2023 09:16-0400 Diastolic blood pressure 71 mm[Hg] No Primary Care Physician [facility] 02-25-2023 09:16-0400 Systolic blood pressure 106 mm[Hg] No Primary Care Physician [facility] 02-10-2023 09:49-0400 Body height 157.48 cm No Primary Care Physician [facility] 02-10-2023 09:48-0400 Body mass index (BMI) [Ratio] 23 kg/m2 No Primary Care Physician [facility] 02-10-2023 09:48-0400 Body weight 57.15 kg No Primary Care Physician [facility] 02-10-2023 09:48-0400 Diastolic blood pressure 72 mm[Hg] No Primary Care Physician [facility] 02-10-2023 09:48-0400 Systolic blood pressure 116 mm[Hg] No Primary Care Physician [facility] 01-13-2023 12:04-0400 Body mass index (BMI) [Ratio] 22.6 kg/m2 No Primary Care Physician [facility] 01-13-2023 12:04-0400 Body weight 56.24 kg No Primary Care Physician [facility] 01-13-2023 12:04-0400 Diastolic blood pressure 76 mm[Hg] No Primary Care Physician [facility] 01-13-2023 12:04-0400 Systolic blood pressure 126 mm[Hg] No Primary Care Physician [facility] 12-13-2022 12:04-0400 Body height 157.48 cm No Primary Care Physician [facility] 12-13-2022 12:02-0400 Body mass index (BMI) [Ratio] 22.8 kg/m2 No Primary Care Physician [facility] 12-13-2022 12:02-0400 Body weight 54.99 kg No Primary Care Physician [facility] 12-13-2022 12:02-0400 Diastolic blood pressure 82 mm[Hg] No Primary Care Physician [facility] 12-13-2022 12:02-0400 Systolic blood pressure 112 mm[Hg] No Primary Care Physician [facility] 11-18-2022 09:45-0400 Body mass index (BMI) [Ratio] 21.7 kg/m2 No Primary Care Physician [facility] 11-18-2022 09:45-0400 Body weight 54.03 kg No Primary Care Physician [facility] 11-18-2022 09:45-0400 Diastolic blood pressure 77 mm[Hg] No Primary Care Physician [facility] 11-18-2022 09:45-0400 Systolic blood pressure 120 mm[Hg] No Primary Care Physician [facility] 10-19-2022 09:33-0400 Body mass index (BMI) [Ratio] 21.4 kg/m2 No Primary Care Physician [facility] 10-19-2022 09:33-0400 Body weight 53.29 kg No Primary Care Physician [facility] 10-19-2022 09:33-0400 Diastolic blood pressure 79 mm[Hg] No Primary Care Physician [facility] 10-19-2022 09:33-0400 Systolic blood pressure 117 mm[Hg] No Primary Care Physician [facility] 09-27-2022 11:02-0400 Body mass index (BMI) [Ratio] 21.9 kg/m2 No Primary Care Physician [facility] 09-27-2022 11:02-0400 Body weight 54.48 kg No Primary Care Physician [facility] 09-27-2022 11:02-0400 Diastolic blood pressure 81 mm[Hg] No Primary Care Physician [facility] 09-27-2022 11:02-0400 Systolic blood pressure 138 mm[Hg] No Primary Care Physician [facility] 09-14-2022 11:03-0500 Body height 157.48 cm No Primary Care Physician [facility] 09-14-2022 11:02-0500 Body mass index (BMI) [Ratio] 22.1 kg/m2 No Primary Care Physician [facility] 09-14-2022 11:02-0500 Body weight 53.29 kg No Primary Care Physician [facility] 09-14-2022 11:02-0500 Diastolic blood pressure 78 mm[Hg] No Primary Care Physician [facility] 09-14-2022 11:02-0500 Systolic blood pressure 128 mm[Hg] No Primary Care Physician [facility] Encounters Encounter Date Encounter Type Care Provider Facility Start: 01-03-2025 ambulatory No Primary Car e Physician Facility:[facility] Start: 08-10-2024 Encounter for gynecological examination (general) (routine) without abnormal findings Judycarlos alberto Leal Cathy [facility] Start: 08-10-2024 End: 08-10-2024 ambulatory No Primary Care Physician Facility:[facility] Start: 08-10-2024 End: 08-10-2024 ambulatory No Primary Care Physician Facility:[facility] Start: 01-13-2024 End: 01-13-2024 ambulatory Keara Salmon Facility:[facility] Start: 01-11-2024 End: 01-11-2024 ambulatory Keara Salmon Facility:[facility] Start: 01-10-2024 End: 01-10-2024 ambulatory Keara Salmon Facility:[facility] Start: 01-09-2024 End: 01-09-2024 ambulatory Candice Snow Facility:[facility] Start: 05-13-2023 Non-patient / Non-visit No Theresa Noriega Physician [facility] Start: 05-12-2023 Non-patient / Non-visit No Theresa Noriega Physician [facility] Start: 05-11-2023 Non-patient / Non-visit No Theresa Noriega Physician [facility] Start: 05-11-2023 End: 05-13-2023 Evaluation and management of inpatient No Primary Care Physician [facility] Work Phone: Start: 05-10-2023 End: 05-10-2023 Patient encounter procedure No Primary Care Physician [facility] Work Phone: Start: 05-04-2023 End: 05-04-2023 Patient encounter procedure No Primary Care Physician [facility] Work Phone: Start: 04-27-2023 End: 04-27-2023 Patient encounter procedure No Primary Care Physician [facility] Work Phone: Start: 04-20-2023 End: 04-20-2023 ambulatory No Primary Care Physician [facility] Work Phone: Start: 04-20-2023 End: 04-20-2023 Patient encounter procedure No Primary Care Physician [facility] Work Phone: Start: 04-20-2023 End: 04-20-2023 Patient encounter procedure No Primary Care Physician [facility] Work Phone: Start: 04-13-2023 End: 04-13-2023 Patient encounter procedure No Primary Care Physician [facility] Work Phone: Start: 04-07-2023 End: 04-07-2023 Patient encounter procedure No Primary Care Physician [facility] Work Phone: Start: 03-30-2023 End: 03-30-2023 ambulatory No Primary Care Physician [facility] Work Phone: Start: 03-30-2023 End: 03-30-2023 Patient encounter procedure No Primary Care Physician [facility] Work Phone: Start: 03-23-2023 End: 03-23-2023 Patient encounter procedure No Primary Care Physician [facility] Work Phone: Start: 03-09-2023 End: 03-09-2023 Patient encounter procedure No Primary Care Physician [facility] Work Phone: Start: 02-25-2023 End: 02-25-2023 Patient encounter procedure No Primary Care Physician [facility] Work Phone: Start: 02-10-2023 End: 02-10-2023 ambulatory No Primary Care Physician [facility] Work Phone: Start: 02-10-2023 End: 02-10-2023 Patient encounter procedure No Primary Care Physician [facility] Work Phone: Start: 02-10-2023 End: 02-10-2023 Patient encounter procedure No Primary Care Physician [facility] Work Phone: Start: 01-13-2023 End: 01-13-2023 Patient encounter procedure No Primary Care Physician [facility] Work Phone: Start: 12-22-2022 End: 12-22-2022 ambulatory No Primary Care Physician [facility] Work Phone: Start: 12-22-2022 End: 12-22-2022 Patient encounter procedure No Primary Care Physician [facility] Start: 12-13-2022 End: 12-13-2022 Patient encounter procedure No Primary Care Physician [facility] Start: 11-18-2022 End: 11-18-2022 Patient encounter procedure No Primary Care Physician [facility] Start: 10-19-2022 End: 10-19-2022 Patient encounter procedure No Primary Care Physician [facility] Start: 09-27-2022 End: 09-27-2022 ambulatory No Primary Care Physician [facility] Work Phone: Start: 09-27-2022 End: 09-27-2022 Patient encounter procedure No Primary Care Physician [facility] Start: 09-16-2022 End: 09-16-2022 ambulatory No Primary Care Physician [facility] Work Phone: Start: 09-16-2022 End: 09-16-2022 Patient encounter procedure No Primary Care Physician [facility] Start: 09-14-2022 End: 09-14-2022 ambulatory No Primary Care Physician [facility] Work Phone: Start: 09-14-2022 End: 09-14-2022 Patient encounter procedure No Primary Care Physician [facility] Start: 09-14-2022 End: 09-14-2022 Patient encounter procedure No Primary Care Physician [facility] Start: 11-19-2021 End: 11-19-2021 Patient encounter procedure [facility] Start: 09-19-2018 End: 09-23-2018 Evaluation and management of inpatient JANIE Moreno FONTANEZ Facility:[facility] Start: 07-21-2018 End: 07-21-2018 Emergency department patient visit Amarilis Deleon Karmen Facility:[facility] Start: 05-19-2018 End: 05-20-2018 Patient encounter procedure JANIE FONTANEZ Facility:[facility] Start: 12-20-2017 Encounter for other general [facility] Start: 12-20-2017 End: 12-25-2017 Patient encounter procedure JANIE FONTANEZ Facility:[facility] Encounter for other general examination JANIE FONTANEZ [facility] Procedures Date Procedure Procedure Detail Performing Clinician [...] Activity Detail Author Start: 05-13-2023 Patient discharge [facility] Start: 05-12-2023 Application of abdom inal corset [facility] Start: 05-12-2023 Notification of physician [facility] Start: 05-12-2023 Vital signs measurements [facility] Start: 05-12-2023 [facility] Start: 05-11-2023 Administration of medication [facility] Start: 05-11-2023 Ambulation therapy management [facility] Start: 05-11-2023 Application of device [facility] Start: 05-11-2023 Application of inter mittent pneumatic compression device [facility] Start: 05-11-2023 Assessment of risk o f venous thromboembolism [facility] Start: 05-11-2023 Catheterization of vein [facility] Start: 05-11-2023 Deep breathing and c oughing exercises [facility] Start: 05-11-2023 Exercises [facility] Start: 05-11-2023 Incentive spirometry [facility] Start: 05-11-2023 Measuring intake and output [facility] Start: 05-11-2023 Notification of physician [facility] Start: 05-11-2023 Procedure discontinued [facility] Start: 05-11-2023 Provision of activit y privileges [facility] Start: 05-11-2023 Skin care [facility] Start: 05-11-2023 Vital signs measurements [facility] Start: 05-11-2023 Wound care [facility] Start: 05-11-2023 End: 05-11-2023 [facility] Start: 05-11-2023 Application of abdom inal corset [facility] Start: 05-11-2023 Admission procedure [facility] Patient Education After a [facility] Work Phone[facility] Work Phone: Ultrasound scan for growth [facility] Payers Date Payer Category Payer Self-pay [id number] 2023 Unknown [id number] 2017 Unknown [id number] 1985 Unknown [id number] 2.16.8 [id number] 1985 Unknown [id number] 2.16.8 [id number] 1985 Unknown [id number] 2.16.8 [id number] 1985 Unknown [id number] 2.16.8 [id number] Unknown [id number] 2.16.8 [id number] Unknown [id number] 2.16.8 [id number] Unknown [id number] 2.16.8 [id number] Unknown [id number] 2.16.8 [id number] Unknown [id number] 2.16.8 [id number] Unknown [id number] 2.16.8 [id number] Unknown [id number] 2.16.8 [id number] Social History Date Type Detail Facility Tobacco smoking stat us NHIS Unknown if ever smoked [facility] Work Phone: Start: 1985 Sex Assigned At Female [facility] Start: 09-14-2022 End: 05-11-2023 Tobacco smoking status NHIS Unknown if ever smoked [facility] Goals Date Patient Goal Desired Activity /State Mental Status Date Assessment Result Facility 05-12-2023 Cognitive function Voice/Name [facility] Work Phone: Clinical Notes 05-11-2023 to 05-13-2023 Note Date & Type Note Facility 05-13-2023 Discharge summary Note Date/Time May 11, 2023 8:19pm [facility] Medical Records Department [address] [place] [address] Instructions for Home/Discharge Instructions 05/11/232017 MR#: [id number] Acct: [id number] Name: BREANNAFROYLAN Robert Rep #:[id number] : 1985 37 From: Judy Hennessy DO [...] Up With: Judy Hennessy DO When: Call [phone] to make an appointment for an incision check in 1-2 weeks. Test Results: Test results from this visit will be discussed in further detail at your follow-up appointment, if applicable. Discharge Plan Admission Admit Date/Time: 05/11/23 07:08 Primary Reason for Your Visit: repeat section Attending Provider: Judy Hennessy Primary Care Provider: Care Physician,Celsa Primary Discharge Orders/Prescriptions Prescriptions: New oxycodone-acetaminophen [Percocet] [...] 30 4RF Referrals / Follow Up: Care Physician,Celsa Primary [Primary Care Provider] - Disposition Disposition (needs filled in before D/C Order can be placed): Home, Self Care 05/13/23 0807<Electronically signed by Judy Hennessy DO>Judy Hennessy DO CC: No Primary Care Physician ~ Signed [facility] Work Phone: 1(768) 594-760411-03-2023 Progress note Author Candice Snow [facility] May 13, 2023 7:26am Note Date/Time May 13, 2023 7 :25am [facility] Medical Records Department [address] [place] [address] Progress Note - OBGYN 05/13/23 0724 MR#: [id number] Acct: [id number] Name: FROYLAN CARLOS Rep #:[id number] : 1985 37 From: Candice Snow CNM PCP: Care Physician,No Primary Status :ADM IN Location: [place] [address] Subjective Subjective Patient doing well without complaints. [...] 2950 / 2950 Balance 1940.63 / 1940.63 -1950 / -1950 Lab / Micro Data Attestation: I reviewed [...] antepartum: COMMENT: PRR POLY: 05/13/23, boy Samir RUTH Ramirez, Spouse-Sher, Repeat C/S scheduled 05/16/23 Noon. (6) : QUALIFIERS: Weeks of gestation: 39 weeks Qualified Code(s): Z3A.39 - 39 weeks gestation of COMMENT: genetic, carrier, and ntd screening declined. nl anatomy, nl growth @33w Charges/Coding Multi Select Codes Urinary/Genital Urinary/Genital CPT Codes: No Charge 05/13/23 0756 <Electronically signed by Candice Snow CNM> Cosigner Signature (if applicable): CC: ~ Signed [facility] Work Phone: 1(456) 503-901611-02-2023 Progress note Author Keara Salmon [facility] May 12, 2023 3:08pm Note Date/Time May 12, 2023 3 :08pm [facility] Medical Records Department [address] [place] [address] Progress Note - OBGYN 05/12/23 1507 MR#: [id number] Acct: [id number] Name: FROYLAN CARLOS Rep #:[id number] : 1985 37 From: Keara jolly MD PCP: Care Physician,No Primary Status :ADM IN Location: [place] [address]1 Subjective Subjective Patient doing well without complaints. [...] 86.5 H, Lymph % (Auto) 6.6 L, [place] % (Auto) 5.7, Eos % (Auto) 0.1, [...] (MDRD) Non-Af 74, BUN/Creatinine Ratio 9.9 L, [id number] H, Calcium 8.0 L, Total Bilirubin 0.20, [...] Cosigner Signature (if applicable): CC: ~ Signed [facility] Work Phone: 1(399) 902-581711-01-2023 Procedure [facility] 05-11-2023 Progress note Author Judy Morgan [facility] May 11, 2023 5:49pm Note Date/Time May 11, 2023 5 :49pm [facility] Medical Records Department [address] [place] [address] Progress Note 05/11/231745 MR#: [id number] Acct: [id number] Name: BREANNARFOYLAN Robert Rep #:[id number] : 1985 37 From: Judy Hennessy DO PCP: Care Physician,No Primary Status :ADM IN Location: [place] [id number] Progress Note pt is comfortable with epidural. [...] close observation at bedside and anticipate soon 05/11/231748 <Electronically signed by Judy Hennessy DO> Judy Hennessy DO Cosigner Signature (if applicable): CC: ~ Signed [facility] Work Phone: 1(530) 600-925811-01-2023 History and physical note Author Judy Morgan [facility] May 11, 2023 8:55am Note Date/Time May 11, 2023 8 :49am [facility] Medical Records Department [address] [place] [address] H&P Exam - SUEDE BRUSHER 05/11/23 0847 MR#: [id number] Acct: [id number] Name: FROYLAN CARLOS Rep #:[id number] : 1985 37 From: Judy Hennessy DO PCP: Care Physician,No Primary Status :ADM IN Location: [id number] HPI - General General Date of Admission: [...] (Updated 05/10/23 @ 10:[address] Judy Hennessy DO) delivery delivered Social History adopted: No household members: spouse and children housing: house number of children: 1 current occupational status: unemployed current occupation: [employer] pets and animals: No history of recent [...] today. doing gct later today. (lives in [place]) will discuss tdap next visit. 02/25/23 -?-?-?-?-?-?-?-?-?-?-?-?- [...] risk , antepartum: COMMENT: PRR POLY: 05/13/23, kevin Ramirez, Spouse-Sher, Repeat C/S scheduled 05/16/23 Noon. (5) [...] induction also discussed. I have reviewed the [facility] and made any clinically relevant updates. 05/11/23 5273 <Electronically signed by Judy Hennessy DO> Cosigner Signature (if applicable): CC: Dr. Judy Hennessy, DO; No Primary Care Physician~ Signed [facility] Work Phone: evaluation noteNo assessment information available [facility] Work Phone: evaluation note* Diagnosis Onset Date Resolution Status AMA (advanced maternal age) multigravida 35+ acute Desires (vaginal after ) trial acute acute Spotting in early acute Supervision of high risk , antepartum acute [facility] Work Phone: Evaluation note* Diagnosis Onset Date Resolution Status AMA (advanced maternal age) multigravida 35+ acute Desires (vaginal after ) trial acute acute Spotting in early acute Supervision of high risk , antepartum acute AMA (advanced maternal age) multigravida 35+ acute Desires (vaginal after ) trial acute acute Spotting in early acute Supervision of high risk , antepartum acute [facility] Work Phone: evaluation note* Diagnosis Onset Date Resolution Status AMA [...] Supervision of high risk , antepartum acute [facility] Work Phone: evaluation note* Diagnosis Onset Date Resolution Status AMA [...] Supervision of high risk , antepartum acute [facility] Work Phone: Evaluation note* Diagnosis Onset Date [...] Supervision of high risk , antepartum acute [facility] Work Phone: Evaluation note* Diagnosis Onset Date [...] Supervision of high risk , antepartum acute [facility] Work Phone: Evaluation note* Diagnosis Onset Date [...] Supervision of high risk , antepartum acute [facility] Work Phone: Summary Purpose Family History No Family History Records Found Relationship Condition Age at Onset Recorded Date/T tara mother Hypertension Unknown grandfather Myocardial infarction Unknown Cardiac disease Unknown Advance Directives No Advanced Directives Records Found Advance Directive Response Recorded Date/ Time Living Will No May 11 8:26am Power of Cable Strander No May 11, 2023 8:26am Chief Complaint and Reason for Visit Chief Complaint UROGRAM Abnormal rad iologic findings on diagnosti Chief Complaint NOB LMP 07/11, JV to [...] section and content) DATE CREATED AUTHOR 10/01/2018 [facility] ([place]) DATE CREATED AUTHOR AUTHOR'S ORGANIZ ATION 01/04/2025 [facility] Goals (unrecognized section and content) Goals [...] BE BASED ON THE PRIMARY CLINICAL RECORDS. [employer] provides no warranty or guarantee of the accuracy or completeness of information in this document.
[2025-01-05 09:01] LABS: hCG Titer Quant., Serum 118 mIU/mL (<9 non-preg)
== END | disposition home or self-care (01) ==
LOC: LAB 07:01
PROVIDERS: Referring Provider Obstetrics & Gynecology; Visit Provider Obstetrics & Gynecology
DX: Z34.90 Encounter for supervision of normal pregnancy, unspecified, unspecified trimester (principal)
CPT/HCPCS: 36415; 84702

== ENCOUNTER → 2025-01-15 | Outpatient (CLI) | payer SELFPAY ==
[2025-01-15 14:07] LABS: hCG Titer Quant., Serum 2905 mIU/mL (<9 non-preg)
== END | disposition home or self-care (01) ==
PROVIDERS: Referring Provider Advanced Practice Midwife; Visit Provider Advanced Practice Midwife
DX: O26.859 Spotting complicating pregnancy, unspecified trimester (principal); Z3A.00 Weeks of gestation of pregnancy not specified
CPT/HCPCS: 36415; 84702

== ENCOUNTER → 2025-01-17 | Outpatient (CLI) | payer SELFPAY ==
[2025-01-17 14:36] LABS: hCG Titer Quant., Serum 5168 mIU/mL (<9 non-preg)
== END | disposition home or self-care (01) ==
LOC: LAB 13:26
PROVIDERS: Referring Provider Advanced Practice Midwife; Visit Provider Advanced Practice Midwife
DX: O26.859 Spotting complicating pregnancy, unspecified trimester (principal); Z3A.00 Weeks of gestation of pregnancy not specified
CPT/HCPCS: 36415; 84702

== ENCOUNTER → 2025-01-25 | Outpatient (CLI) | payer SELFPAY ==
[2025-01-25 16:41] LABS: Hematocrit 38.0 % (37-47); Hemoglobin 12.9 g/dL (12.0-15.0); Immature Granulocytes Count 0.020 X10^3/uL (0.0-0.0); Mean Corp Hgb Conc 33.9 g/dL (32-36); Mean Corpuscular Volume 87.2 fL (81-99); Mean Platelet Vol. 10.8 fl (6.2-12.0); NRBC Flagged by Analyzer 0 % (0-5); Platelet Count 302 K/mm3 (150-450); RBC Distribution Width CV 13.7 % (11.6-14.6); RBC Distribution Width SD 44.0 fl (35.1-43.9); Red Blood Count 4.36 M/mm3 (4.2-5.4); White Blood Count 8.8 K/mm3 (4.4-11.0)
[2025-01-25 17:30] LABS: HIV Nonreactive (Nonreactive); Hepatitis B Surface Antigen Nonreactive (Nonreactive); Hepatitis C Antibody No_Result (Nonreactive); Syphilis Antibodies Nonreactive (Nonreactive)
[2025-01-28 20:08] LABS: Chlamydia By Nucleic Acid AMP Negative (Negative); Gonococcus By Nucleic Acid AMP Negative (Negative)
== END | disposition home or self-care (01) ==
PROVIDERS: Referring Provider Registered Nurse; Visit Provider Registered Nurse
DX: O09.90 Supervision of high risk pregnancy, unspecified, unspecified trimester (principal); Z3A.00 Weeks of gestation of pregnancy not specified
CPT/HCPCS: 36415; 85025; 86703; 86762; 86780; 86803; 86850; 86900; 86901; 87086; 87088; 87340; 87491; 87591

== ENCOUNTER → 2025-02-07 | Outpatient (CLI) | payer SELFPAY ==
[2025-02-07 13:12] LABS: Hepatitis C Antibody Nonreactive (Nonreactive)
== END | disposition home or self-care (01) ==
LOC: BWCLAB 10:27
PROVIDERS: Visit Provider Advanced Practice Midwife
DX: O09.90 Supervision of high risk pregnancy, unspecified, unspecified trimester (principal); Z3A.08 8 weeks gestation of pregnancy
CPT/HCPCS: 36415; 86803

== ENCOUNTER → 2025-05-01 | Outpatient (CLI) | payer SELFPAY ==
--- NOTE | 2025-05-01 15:49 | US_ITS ---
PROCEDURE: OB ANATOMY W/ TRANSVAGINAL 05/01/2025 REASON FOR EXAM: ANATOMY SCAN TECHNIQUE: Procedure Code: [id number] Modality: US Procedure: OB ANATOMY W/ TRANSVAGINAL COMPARISON: None FINDINGS LMP: December 12, 2024 Number: 1 Position: Transverse lie right Placental Position: Fundal Placental Abnormalities: No evidence of previa. DIMENSIONS: Biparietal Diameter: 4.6 cm: 20 weeks and 0 days: 51st percentile/ Head Circumference: 17.1 cm: 19 weeks and 5 days: 29 percentile/ Abdominal Circumference: 16.2 cm: 21 weeks and 2 days: 83rd percentile/ Femur Length: 3.2 cm: 20 weeks and 0 days: 42nd percentile/ ESTIMATED WEIGHT: 368 g plus/-55 g ESTIMATED WEIGHT PERCENTILE (24+ weeks): 80 ESTIMATED GESTATIONAL AGE: Baseline: 20 weeks and 0 days By Ultrasound: 20 weeks and 1 day ESTIMATED DATE OF DELIVERY: Baseline: September 18, 2025 By Ultrasound: September 17, 2025 BIOPHYSICAL ASSESSMENT: Amniotic Fluid Volume: 5.7 cm Amniotic Fluid Index: Within normal limits (8-24 cm normal range) Cardiac Motion: 145 beats per minute (average) Trunk and Limb Motion: Present. MATERNAL ANATOMY: Adnexa: Both maternal ovaries are visualized and unremarkable. Cervical Length (if measured): 4.6 cm There is a 1.3 cm x 1.8 cm x 1 cm cystic structure of the base of the maternal urinary bladder. ANATOMY: Spine: Unremarkable Cranium: Unremarkable Cerebellum: Unremarkable Cisterna Magna: Unremarkable Cavum Septum Pellucidi: Unremarkable Lateral Ventricles: Unremarkable Choroid Plexus: Right choroid plexus cyst measuring 6 mm by 2 mm. Midline Falx: Unremarkable Nuchal Fold: Unremarkable Upper Lip: Unremarkable Heart: Unremarkable Ventricular Outflow Tracts: Unremarkable Stomach: Unremarkable Kidneys: Unremarkable Bladder: Unremarkable Umbilical Cord: Unremarkable Extremities: Unremarkable US/OB Anatomy w/ Transvaginal IMPRESSION: Single live intrauterine gestation with a mean gestational age of 20 weeks and 1 day. Small right choroid plexus cyst. 1.3 cm 1.8 cm 1 cm cystic structure seen at the base of the maternal bladder Reading Location: [place] [address]
== END | disposition home or self-care (01) ==
LOC: US 15:48
PROVIDERS: Referring Provider Obstetrics & Gynecology; Visit Provider Obstetrics & Gynecology
DX: O09.90 Supervision of high risk pregnancy, unspecified, unspecified trimester (principal); Z3A.00 Weeks of gestation of pregnancy not specified
CPT/HCPCS: 76805; 76817

== ENCOUNTER → 2025-05-15 | Outpatient (CLI) | payer SELFPAY | END | disposition home or self-care (01) | PROVIDERS: Referring Provider Obstetrics & Gynecology; Visit Provider Obstetrics & Gynecology | DX: O09.522 Supervision of elderly multigravida, second trimester (principal); Z3A.00 Weeks of gestation of pregnancy not specified | CPT/HCPCS: 36415 ==

== ENCOUNTER → 2025-06-18 | Outpatient (CLI) | payer SELFPAY ==
[2025-06-18 11:44] LABS: Hematocrit 33.9 % (37-47); Hemoglobin 11.7 g/dL (12.0-15.0); Immature Granulocytes Count 0.060 X10^3/uL (0.0-0.0); Mean Corp Hgb Conc 34.5 g/dL (32-36); Mean Corpuscular Volume 89.4 fL (81-99); Mean Platelet Vol. 10.2 fl (6.2-12.0); NRBC Flagged by Analyzer 0 % (0-5); Platelet Count 280 K/mm3 (150-450); RBC Distribution Width CV 14.2 % (11.6-14.6); RBC Distribution Width SD 46.5 fl (35.1-43.9); Red Blood Count 3.79 M/mm3 (4.2-5.4); White Blood Count 9.6 K/mm3 (4.4-11.0)
[2025-06-18 12:27] LABS: Glucose Challenge Gest 1H 50g 103 mg/dL (70-140); HIV Nonreactive (Nonreactive); Syphilis Antibodies Nonreactive (Nonreactive)
== END | disposition home or self-care (01) ==
PROVIDERS: Obstetrics & Gynecology; Visit Provider Advanced Practice Midwife
DX: O09.92 Supervision of high risk pregnancy, unspecified, second trimester (principal); Z13.1 Encounter for screening for diabetes mellitus; Z3A.00 Weeks of gestation of pregnancy not specified
CPT/HCPCS: 36415; 82950; 85025; 86703; 86780